=== PATIENT | male | born 1960 | race African-American/Black ===

== ENCOUNTER 2018-06-02 09:28 | Emergency (ER) | payer OTHER ==
--- NOTE | 2018-06-02 09:53 | ED ---
Complex/Multi-Sys Presentation - HPI Summary HPI Summary: Pt is a 58 y/o male brought in by EMS who presents to the ED c/o hypothermia. He was here last week and was transferred to [facility] because he did not have a fistula yet for dialysis and required it. Pt was discharged from [facility] last week, and was started on 50 mcg levothyroxine for hypothyroidism. Pt was at [facility] this morning for a routine checkup and was given 8 mg Zofran for N/V, which resolved his nausea. At the clinic he was found to be hypothermic with a temperature of 94.3 degrees F and was sent here to rule out sepsis. The clinic notes that his multiple diabetic foot wounds could be a source of infection. Pt also c/o fatigue, chills, and generalized weakness. He denies any CP, SOB, abdominal pain, foot pain, or fever. He is scheduled to have his dialysis every Thursday, , and Thursday. Pt denies missing any dialysis sessions. He is a former alcohol user. PMHx DM, HTN, HLD, ESRD, Hep C, latent TB. He denies any hx of [place] or CHF. - History Of Current Complaint Time Seen by Provider: 06/02/18 09:37 Hx Obtained From: Patient, EMS Onset/Duration: Gradual Onset, Still Present Timing: Constant Location: Negative Aggravating Factor(s): Nothing Alleviating Factor(s): Nothing Associated Signs And Symptoms: Positive: Weakness, Nausea, Vomiting. Negative: SOB, Chest Pain, Abdominal Pain, Fever Related History: Recent Hospitalization - [facility] for renal disease - Allergies/Home Medications Allergies/Adverse Reactions: Allergies Allergy/AdvReac Type Severity Reaction Status Date / Time No Known Allergies Allergy Verified 06/02/18 09:43 Home Medications: Home Medications Atorvastatin* [Lipitor*] 40 mg PO BEDTIME 06/02/18 [History Confirmed 06/02/18] Calcium Acetate CAP* [Phoslo CAP*] 1,334 mg PO TID WITH MEALS 06/02/18 [History Confirmed 06/02/18] Carvedilol TAB* [Coreg TAB*] 3.125 mg PO BID 06/02/18 [History Confirmed ] Cholecalciferol CAP/TAB(NF) [Vitamin D3 CAP/TAB (NF)] 1,000 unit PO DAILY [History Confirmed 06/02/18] Darbepoetin Kt* [Aranesp Albumin Free*] 60 mcg INJ WEEKLY 06/02/18 [History Confirmed 06/02/18] Levothyroxine TAB* [Synthroid TAB*] 50 mcg PO DAILY 06/02/18 [History Confirmed 06/02/18] Nicotine Polacrilex [Nicorette] 4 mg PO Q2HR PRN 06/02/18 [History Confirmed 10/13] Ondansetron TAB* [Zofran 4 MG Tab*] 4 - 8 mg PO Q8HR PRN 06/02/18 [History Confirmed 06/02/18] Polyethylene Glycol 3350* [Miralax*] 17 gm PO BID PRN 06/02/18 [History Confirmed 06/02/18] amLODIPine TAB* [Norvasc 5 mg TAB*] 10 mg PO DAILY 06/02/18 [History Confirmed 06/02/18] glipiZIDE TAB.XL* [Glucotrol XL*] 10 mg PO DAILY 06/02/18 [History Confirmed 10/13] hydrALAZINE TAB* [Apresoline TAB*] 75 mg PO Q8HR 06/02/18 [History Confirmed 10/13] traZODone TAB* [Desyrel TAB*] 50 mg PO BEDTIME 06/02/18 [History Confirmed 06/02] PMH/Surg Hx/FS Hx/Imm Hx Endocrine/Hematology History: Reports: Hx Diabetes, Hx Thyroid Disease - hypo Cardiovascular History: Reports: Hx Hypercholesterolemia, Hx Hypertension Denies: Hx Congestive Heart Failure, Hx Myocardial Infarction History: Reports: Hx Dialysis, Hx Renal Disease Infectious Disease History: No Infectious Disease History: Reports: Hx Hepatitis - C, Hx Tuberculosis - latent Denies: Traveled Outside the [place] in Last 30 Days - Family History Known Family History: Positive: Diabetes Negative: Cardiac Disease - Social History Alcohol Use: None Alcohol Amount: Former alcohol use Hx Substance Use: No Substance Use Type: Reports: None Hx Tobacco Use: No Smoking Status (MU): Never Smoked Tobacco Review of Systems Positive: Chills - cold, Fatigue, Other - generalized weakness. Negative: Fever Negative: Chest Pain Negative: Shortness Of Breath Positive: Vomiting, Nausea. Negative: Abdominal Pain Negative: Myalgia - foot Positive: Other - wounds on bilateral feet All Other Systems Reviewed And Are Negative: Yes Physical Exam - Summary Physical Exam Summary: GENERAL: Patient is a well-developed and nourished M who is lying comfortable in the stretcher. Patient is not in any acute respiratory distress. HEAD AND FACE: Normocephalic EYES: PERRLA, EOMI x 2. EARS: Hearing grossly intact. MOUTH: Oropharynx within normal limits. NECK: Supple, trachea is midline, no adenopathy, no JVD, no carotid bruit. CHEST: Symmetric, no tenderness at palpation LUNGS: Clear to auscultation bilaterally. No wheezing or crackles. CVS: Regular rate and rhythm, S1 and S2 present, no murmurs or gallops appreciated. ABDOMEN: Soft, non-tender. Bowel sounds are normal. No abdominal abnormal pulsations. EXTREMITIES: Full ROM in all major joints, no edema, no cyanosis or clubbing. NEURO: Alert and oriented x 3. No acute neurological deficits. Speech is normal and follows commands. SKIN: Dry and warm. Multiple chronic diabetic wounds on plantar aspects of bilateral feet. Triage Information Reviewed: Yes Vital Signs On Initial Exam: Initial Vitals Temp Pulse Resp BP Pulse Ox 97.1 F 71 13 165/90 100 06/02/18 09:40 06/02/18 09:40 06/02/18 09:40 06/02/18 09:40 06/02/18 09:40 Vital Signs Reviewed: Yes Diagnostics - Vital Signs Vital Signs Temp Pulse Resp BP Pulse Ox 06/02/18 09:48 100 06/02/18 09:40 97.1 F 71 13 165/90 100 - Laboratory Result Diagrams: 06/02/18 09:52 06/02/18 09:52 Lab Statement: Any lab studies that have been ordered have been reviewed, and results considered in the medical decision making process. - Radiology CXR Radiology Interpretation Completed By: Radiologist Summary of Radiographic Findings: NO ACTIVE CARDIOPULMONARY DISEASE IS NOTED. ED physician reviewed radiology report. Re-Evaluation - Re-Evaluation First Eval Re-Evaluation Time: 11:02 Change: Unchanged Comment: Rectal temperature is 94.7 degrees F. Second Eval Re-Evaluation Time: 11:56 Change: Unchanged Comment: Pt is sleeping. Will order for a jacob hugger. Pt's family states his body temperature is always low. Complex Multi-Symp Course/Dx Course Of Treatment: Pt is a 58 y/o male brought in by EMS who presents to the ED c/o hypothermia. As per family, pts body temperature is always low. A CXR was negative. Workup is otherwise unremarkable. Discussed the case with Dr. Malone who saw the pt and cleared for discharge. Pt will be discharged with final dx of chronic anemia and low body temperature. I discussed results with patient and he reports feeling better. He is hemodynamically stable and safe for discharge. Strict return precautions given and he will otherwise follow up with his PCP. - Diagnoses Provider Diagnoses: Chronic anemia, Body temperature low - Physician Notifications Discussed Care Of Patient With: Rakan Malone Time Discussed With Above Provider: 12:00 Instructed by Provider To: MD Will See In ED Discharge - Sign-Out/Discharge Documenting (check all that apply): Patient Departure - Discharge Patient Received Moderate/Deep Sedation with Procedure: No - Discharge Plan Condition: Stable Disposition: HOME Patient Education Materials: Acute Hypothermia (ED) Referrals: Charles Lemus MD [Primary Care Provider] - (1-3 days) Additional Instructions: Follow up with your primary care physician in 1-3 days. RETURN TO THE EMERGENCY DEPARTMENT FOR CHANGING OR WORSENING SYMPTOMS. - Billing Disposition and Condition Condition: STABLE Disposition: Home - Attestation Statements Document Initiated by Scribe: Yes Documenting Scribe: Ashleigh Reed Provider For Whom Lucy is Documenting (Include Credential): Brody Cabello MD Scribe Attestation: Ashleigh Cochran, scribed for Brody Cabello MD on 06/02/18 at 1840. Scribe Documentation Reviewed: Yes Provider Attestation: The documentation as recorded by the Ashleigh red accurately reflects the service I personally performed and the decisions made by me, Brody Cabello MD Status of Scribe Document: Viewed
[2018-06-02 10:01] LABS: ABS Basophils 0.1 10^3/ul (0-0.2); ABS Eosinophils 0.1 10^3/ul (0-0.6); ABS Lymphocytes 1.9 10^3/ul (1.0-4.8); ABS Monocytes 0.8 10^3/ul (0-0.8); ABS Neutrophils 2.9 10^3/ul (1.5-7.7); ABS Nucleated RBC 0 10^3/ul; Eosinophil % 2.5 %; Hematocrit 27 % (42-52); Hemoglobin 8.8 g/dl (14.0-18.0); Lymphocyte % 32.3 %; Mean Corpuscular HGB Conc 33 g/dl (31-36); Mean Corpuscular Hemoglobin 30 pg (27-31); Mean Corpuscular Volume 90 fL (80-94); Mean Platelet Volume 7.6 fL (7.4-10.4); Nucleated Red Blood Cells % 0.2; Platelet Count 222 10^3/ul (150-450); Red Blood Count 2.98 10^6/ul (4.00-5.40); Red Cell Distribution Width 16 % (10.5-15)
[2018-06-02 10:10] LABS: Activated Partial Thrombo Time 45.1 seconds (26.0-36.3); INR 0.98 (0.77-1.02)
--- OUTSIDE RECORDS SUMMARY | 2018-06-02 10:17 | XMS REPORT | Continuity of Care Document ---
:1960 External Reference #:[id number] Author Name Rae Bartlett Care Team Providers Name Role Phone Charles Lemus MD Care Team Information Grinder Outside Diameter Unavailable Charles Lemus MD Primary Care Physician Unavailable Payers Type Date Identification Numbers Payment Provider Subscriber Effective: Policy Number: [id number] [employer] Salvatore Wahl 2018 PayID: [id number] [address] [place] [address] Policy Number: [id number] [facility] Salvatore Wahl Group Number: [id number] [address] PayID: [id number] [place] [address] Advance Directives Description No Information Available Problems Date Description Provider Status Onset: 06/22/2017 Essential hypertension Enrique Liu MD Active Onset: 06/22/2017 Type 2 diabetes mellitus with mild Enrique Liu MD Active nonproliferative diabetic retinopathy without macular edema, bilateral Onset: 09/02/2017 Chronic hepatitis C Philippe Mcmahon MD Active Onset: 09/18/2017 Anemia Gamaliel Golden DO Active Onset: 09/18/2017 Chronic kidney disease stage 2 Gamaliel Golden DO Active Onset: 09/23/2017 [place]: positive Romana Romero M.D. Active Onset: 09/23/2017 Type II diabetes mellitus uncontrolled Romana Romero M.D. Active Onset: 03/02/2018 Diarrhea Enrique Diane MD Active Onset: 01/19/2018 Chronic kidney disease stage 4 Gamaliel Golden DO Active Onset: 10/26/2017 Tobacco user Romana Romero M.D. Active Family History Date Family Member(s) Problem(s) Comments General Non Contributory Father due to Unknown Causes () Mother due to Unknown Causes () First Son Alive Second Son Alive First Brother Alive First Sister Alive Second Sister Alive Social History Type Date Description Comments Sex Unknown Marital Status Significant Other Lives With Family Home Environment Lives With SPOUSE Diet Healthy, Well Balanced Occupation Unemployed ADL's/IADL's Independent with all ADL's Tobacco Use Start: Unknown Heavy tobacco smoker (more than 10 cigarettes/day) Smokeless Tobacco Never Used Smokeless Tobacco ETOH Use Denies alcohol use Tobacco Use Start: Unknown Patient is a current smokes 1 ppd x 30 smoker, smokes every day years Recreational Drug Use Marijuana Tobacco Use Start: Unknown Light tobacco smoker (10 or fewer cigarettes/day) Smoking Status Reviewed: 04/13/18 Light tobacco smoker (10 or fewer cigarettes/day) Allergies, Adverse Reactions, Alerts Description No Known Drug Allergies Medications Medication Date Status Form Strength Qnty SIG Indications Ordering Provider Boost Glucose 03/02 Active Liquid 90uni 1 bottle by R19.7 Roxi ts mouth three , Enrique, times a day before meals Mavyret 01/08 Active Tablets 100-40mg 168ta 3 tab by B18.2 bs mouth every MD Lisandro day Basaglar Kwikpen Active Solution 100Unit/M Inject 20 Pen-Injec L Units AT t Bedtime And Increase Insulin Every 3 Days By 2 Unit Amlodipine Active Tablets 10mg 90tab 1 by mouth OkSarah kim Besylate s every day ia SEED CORE OPERATOR Glipizide Active Tablets 10mg 90tab 1 tabs by Sarah Springer s mouth once a ia SEED CORE OPERATOR day Metoprolol Active Tablets 50mg 1 by mouth OkwSarah carrera Tartrate twice a day ia SEED CORE OPERATOR Losartan Active Tablets 100-25mg 1 po daily Lucy Lemus/Shanta Charles alvaradoorothiMD kelly Unifinritesh Pentips Active Misc 31G X 6 Karn, mm APPLE Mckeon Hydralazine HCL Active Tablets 50mg Take One Unknown Tablet By Mouth Every 8 Hours Vitamin D3 Active Tablets 1000Unit Take One Unknown Tablet By Mouth Every Day Polyethylene Active Powder 3350NF Mix 1 Capful Unknown Glycol 3350 /0000 In Liquid And Take Twice A Day as Needed For Constipation Isoniazid 01/20 Hx Tablets 300mg 30tab Take one tab R76.11 s PO daily x 30 Romana, - days M.D. 03/15 Pyridoxine HCL 01/20 Hx Tablets 50mg 30tab Take one tab R76.11 s PO daily x 30 Romana, - days M.D. 03/15 Mavyret 01/08 Hx Tablets 100-40mg 168ta 3 tab by B18.2 bs mouth every MD Lisandro - day 03/03 Zepatier 12/11 Hx Tablets 50-100mg 30tab 1 tab by Philippe s mouth every MD Lisandro - day 01/08 Metoclopramide Hx Tablets 10mg [place], HCL /0000 MD Charles Travel Sickness Hx Chewtabs 25mg as needed Gisel, /0000 Timbo Kerns-C 12/18 Metformin HCL Hx Tablets 500mg Karn, /0000 APPLE Mckeon Atorvastatin Hx Tablets 80mg Karn, Calcium /0000 APPLE Mckeon Omeprazole Hx Capsules 40mg Karn, /0000 APPLE Weaver Vitamin D3 Hx Capsules 5000Unit 1 a day Unknown Maximum Strength /0000 - 09/23 Immunizations Description No Information Available Vital Signs Date Vital Result Comment 03/02/2018 4:48pm BP Systolic Sitting Left Arm 155 mmHg BP Diastolic Sitting Left Arm 91 mmHg Heart Rate 57 /min Respiratory Rate 16 /min Height 70 inches 5'10" Weight 159.00 lb BMI (Body Mass Index) 22.8 kg/m2 BSA (Body Surface Area) 1.89 m2 [place] body weight in kilograms 75 kg O2 % BldC Oximetry 99 % 01/20/2018 2:43pm BP Systolic Sitting Left Arm 129 mmHg BP Diastolic Sitting Left Arm 75 mmHg Body Temperature 95.3 F Heart Rate 56 /min Weight 164.00 lb 01/19/2018 9:59am BP Systolic 137 mmHg BP Diastolic 74 mmHg Body Temperature 96.2 F Heart Rate 52 /min Weight 165.25 lb O2 % BldC Oximetry 98 % Pain Level 0 01/08/2018 8:38am BP Systolic Sitting Left Arm 130 mmHg BP Diastolic Sitting Left Arm 80 mmHg Heart Rate 52 /min Respiratory Rate 16 /min Height 70 inches 5'10" Weight 156.00 lb BMI (Body Mass Index) 22.4 kg/m2 BSA (Body Surface Area) 1.88 m2 [place] body weight in kilograms 75 kg 12/18/2017 11:49am BP Systolic Sitting Left Arm 160 mmHg lot of back discomfort today BP Diastolic Sitting Left Arm 100 mmHg lot of back discomfort today Heart Rate 60 /min Respiratory Rate 16 /min Height 70 inches 5'10" Weight 165.00 lb BMI (Body Mass Index) 23.7 kg/m2 BSA (Body Surface Area) 1.92 m2 [place] body weight in kilograms 75 kg 11/13/2017 11:20am BP Systolic Sitting Left Arm 128 mmHg BP Diastolic Sitting Left Arm 80 mmHg Heart Rate 60 /min Height 70 inches 5'10" Weight 160.00 lb BMI (Body Mass Index) 23.0 kg/m2 BSA (Body Surface Area) 1.90 m2 [place] body weight in kilograms 75 kg O2 % BldC Oximetry 97 % 10/26/2017 1:18pm BP Systolic Sitting Left Arm 163 mmHg BP Diastolic Sitting Left Arm 79 mmHg Body Temperature 94.5 F Heart Rate 59 /min Height 70 inches 5'10" Weight 155.00 lb BMI (Body Mass Index) 22.2 kg/m2 BSA (Body Surface Area) 1.87 m2 [place] body weight in kilograms 75 kg 10/07/2017 4:02pm BP Systolic Sitting Left Arm 120 mmHg BP Diastolic Sitting Left Arm 80 mmHg Heart Rate 60 /min Respiratory Rate 16 /min Height 70 inches 5'10" Weight 154.00 lb BMI (Body Mass Index) 22.1 kg/m2 BSA (Body Surface Area) 1.87 m2 [place] body weight in kilograms 75 kg 09/23/2017 1:29pm BP Systolic Sitting Left Arm 95 mmHg BP Diastolic Sitting Left Arm 62 mmHg Body Temperature 96.5 F Heart Rate 56 /min Height 70 inches 5'10" Weight 151.00 lb BMI (Body Mass Index) 21.7 kg/m2 BSA (Body Surface Area) 1.85 m2 [place] body weight in kilograms 75 kg 09/18/2017 10:31am BP Systolic 113 mmHg BP Diastolic 69 mmHg Body Temperature 96.8 F Heart Rate 55 /min Respiratory Rate 16 /min Weight 152.00 lb O2 % BldC Oximetry 100 % 09/04/2017 2:03pm BP Systolic 139 mmHg BP Diastolic 77 mmHg Body Temperature 96.5 F Heart Rate 67 /min Height 70 inches 5'10" Weight 162.00 lb BMI (Body Mass Index) 23.2 kg/m2 BSA (Body Surface Area) 1.91 m2 [place] body weight in kilograms 75 kg O2 % BldC Oximetry 99 % 09/02/2017 4:20pm BP Systolic Sitting Right Arm 130 mmHg BP Diastolic Sitting Right Arm 80 mmHg Heart Rate 62 /min Respiratory Rate 18 /min Height 70 inches 5'10" Weight 167.00 lb BMI (Body Mass Index) 24.0 kg/m2 BSA (Body Surface Area) 1.93 m2 [place] body weight in kilograms 75 kg Results Test Date Facility Test Result H/L Range Note Sodium SerPl-sCnc N2N/CCD Import Sodium SerPl-sCnc 140 136-145 019 Serum or plasma N2N/CCD Import Serum or plasma 7.1 urea 019 urea nitrogen/creatinine nitrogen/creatinin mass rati e mass ratio Serum or plasma N2N/CCD Import Serum or plasma 45 High 7-18 urea nitrogen 019 urea nitrogen measurement measurement (mass/vo (mass/volume) Serum or plasma N2N/CCD Import Serum or plasma 4.8 3.5-5.1 potassium 019 potassium measurement measurement Serum or plasma N2N/CCD Import Serum or plasma 108 High 74-106 glucose measurement 019 glucose (mass/volume) measurement (mass/volume) Serum or plasma N2N/CCD Import Serum or plasma 6.3 *H 0.6-1.3 creatinine 019 creatinine measurement measurement (mass/volum (mass/volume) Serum or plasma N2N/CCD Import Serum or plasma 113 High 98-107 chloride 019 chloride measurement measurement Serum or plasma N2N/CCD Import Serum or plasma 7.9 Low 8.5-10.1 calcium measurement 019 calcium (mass/volume) measurement (mass/volume) Serum or plasma N2N/CCD Import Serum or plasma 8 8-16 anion gap 019 anion gap Hct VFr Bld Auto N2N/CCD Import Hct VFr Bld Auto 26.3 Low 38.0- 48.0 019 Capillary blood N2N/CCD Import Capillary blood 189 High 70-110 glucose measurement 019 glucose by glucometer measurement by glucometer (mass/volume) Automated blood N2N/CCD Import Automated blood 6.3 3.4-10.5 leukocyte count 019 leukocyte count (number/volume) (number/volume) Automated blood N2N/CCD Import Automated blood 157 155-360 platelet count 019 platelet count Automated blood N2N/CCD Import Automated blood 10.9 High 6.6- 10.6 platelet mean 019 platelet mean volume measurement volume measurement Automated N2N/CCD Import Automated 15.1 11.6-15.8 erythrocyte 019 erythrocyte distribution width distribution width ratio ratio Automated N2N/CCD Import Automated 29.7 27.0-33.0 erythrocyte mean 019 erythrocyte mean corpuscular corpuscular hemoglobin hemoglobin (mass per erythrocyte) GFR/Bsa pred.black N2N/CCD Import GFR/Bsa pred.black 12 >60 SerPl MDRD-ArVRat 019 SerPl MDRD-ArVRat Estimated N2N/CCD Import Estimated 10 >60 glomerular 019 glomerular filtration rate filtration rate (GFR) non-Afr (GFR) non- Co2 SerPl-sCnc N2N/CCD Import Co2 SerP-sCnc 19 Low 21-32 019 Automated N2N/CCD Import Automated 32.7 31.7-36.0 erythrocyte mean 019 erythrocyte mean corpuscular corpuscular hemoglobin hemoglobin concentration measurement (mass/volume) Automated N2N/CCD Import Automated 90.7 80.0-96.0 erythrocyte mean 019 erythrocyte mean corpuscular volume corpuscular volume (MCV (MCV) measurement Blood hemoglobin N2N/CCD Import Blood hemoglobin 8.6 Low 12.8- 17.0 measurement 019 measurement (mass/volume) (mass/volume) Blood erythrocytes N2N/CCD Import Blood erythrocytes 2.90 Low 4.20-5.80 automated count 019 automated count (number/volume) (number/volume) Automated blood N2N/CCD Import Automated blood 36.4 20.0-42.0 lymphocytes/100 019 lymphocytes/100 leukocytes leukocytes Automated blood N2N/CCD Import Automated blood 45.5 33.0-73.0 neutrophils/100 019 neutrophils/100 leukocytes leukocytes Automated N2N/CCD Import Automated 4.9 0.0-6.6 eosinophil % 019 eosinophil % Automated N2N/CCD Import Automated 47.0 36-51 erythrocyte 019 erythrocyte distribution width distribution width Automated monocyte N2N/CCD Import Automated monocyte 12.6 High 0.0-10.0 % 019 % Blood monocytes N2N/CCD Import Blood monocytes 0.64 0.0-0.8 automated count 019 automated count (number/volume) (number/volume) Serum globulin N2N/CCD Import Serum globulin 4.5 High 1.9-4.3 measurement by 019 measurement by calculation calculation (mass/vo (mass/volume) Serum or plasma N2N/CCD Import Serum or plasma 26 12-78 alanine 019 alanine aminotransferase aminotransferase measureme measurement (enzymatic activity/volume) Serum or plasma N2N/CCD Import Serum or plasma 2.2 Low 3.4-5.0 albumin measurement 019 albumin (mass/volume) measurement (mass/volume) Serum or plasma N2N/CCD Import Serum or plasma 0.5 albumin/globulin 019 albumin/globulin mass ratio mass ratio Serum or plasma N2N/CCD Import Serum or plasma 101 45-117 alkaline 019 alkaline phosphatase phosphatase measurement ( measurement (enzymatic activity/volume) Serum or plasma N2N/CCD Import Serum or plasma 28 15-37 aspartate 019 aspartate aminotransferase aminotransferase measure measurement (enzymatic activity/volume) Serum or plasma N2N/CCD Import Serum or plasma 2.4 1.8-2.4 magnesium 019 magnesium measurement measurement (mass/volume (mass/volume) Serum or plasma N2N/CCD Import Serum or plasma 1678.0 High <125 natriuretic peptide 019 natriuretic B prohormone N peptide B prohormone N-terminal measurement (mass/volume) Serum or plasma N2N/CCD Import Serum or plasma 6.7 6.4-8.2 protein measurement 019 protein (mass/volume) measurement (mass/volume) Serum or plasma N2N/CCD Import Serum or plasma 0.2 0.2-1.0 total bilirubin 019 total bilirubin measurement (mass/ measurement (mass/volume) Blood estimated N2N/CCD Import Blood estimated 151 average glucose 019 average glucose determination by e determination by estimation from glycated hemoglobin (mass/volume) HgbA1c % N2N/CCD Import HgbA1c % 6.9 High 4.2-6.3 019 Bacteria detection N2N/CCD Import Bacteria detection Very Few None Seen in urine sediment 019 in urine sediment by light micr by light microscopy Epithelial cells N2N/CCD Import Epithelial cells Very Few None Seen detection in urine 019 detection in urine sediment by li sediment by light microscopy Specific gravity of N2N/CCD Import Specific gravity 1.020 1.010- 1.03 Urine by Automated 019 of Urine by 0 test strip Automated test strip Urine appearance N2N/CCD Import Urine appearance Clear Clear determination 019 determination Urine color N2N/CCD Import Urine color Yellow Yellow determination 019 determination Urine glucose N2N/CCD Import Urine glucose Negative Negative measurement by 019 measurement by automated test automated test strip strip (mass/volume) Urine hemoglobin N2N/CCD Import Urine hemoglobin Trace Negative detection by 019 detection by automated test automated test strip strip Urine ketones N2N/CCD Import Urine ketones Negative Negative measurement by 019 measurement by automated test automated test strip strip (mass/volume) Automated blood N2N/CCD Import Automated blood 1.84 1.0-4.0 lymphocyte count 019 lymphocyte count (number/volume) (number/volume) Automated blood N2N/CCD Import Automated blood 0.25 0.0-0.5 eosinophil count 019 eosinophil count Automated blood N2N/CCD Import Automated blood 0.03 0.0-0.1 basophil count 019 basophil count (number/volume) (number/volume) Automated basophil N2N/CCD Import Automated basophil 0.6 0.0- 1.1 % 019 % Absolute neutrophil N2N/CCD Import Absolute 2.30 1.8-7.0 count 019 neutrophil count Urine leukocyte N2N/CCD Import Urine leukocyte Negative Negative esterase detection 019 esterase detection by automated te by automated test strip Urine nitrite N2N/CCD Import Urine nitrite Negative Negative detection by 019 detection by automated test automated test strip strip Urine pH N2N/CCD Import Urine pH 7.0 6.5-7.5 measurement by 019 measurement by automated test automated test strip strip Urine total N2N/CCD Import Urine total Negative Negative bilirubin detection 019 bilirubin by automated test detection by automated test strip Urine urobilinogen N2N/CCD Import Urine urobilinogen 0.2 0.2- 1.0 measurement 019 measurement (units/volume) by t (units/volume) by test strip * Miscellaneous N2N/CCD Import * Miscellaneous Test(s) studies (set) 019 studies (set) added Stool Panel [facility] Ova & Parasite <pending> [address] [place] [place] [address] [phone] C. Difficile Toxin B By PCR <pending> Laboratory test 03/15/2018 [facility] Calprotectin, Fecal <pending> finding [address] [place] [address] [phone] Sedimentation Rate 67 mm/hr High 0-20 2 Pancreatic Elastase (Pe-1) <pending> Lipase 234 U/L N 56-289 Total fecal fat 03/15/2018 N2N/CCD Import Total fecal fat Normal . measurement measurement Stool neutral fat 03/15/2018 N2N/CCD Import Stool neutral fat Normal . detection detection Stool Escherichia 03/15/2018 N2N/CCD Import Stool Escherichia Shiga Toxin 1 Not coli Shiga-like coli Shiga-like Detected toxin 1 detectio toxin 1 detection by immunoassay Stool Escherichia 03/15/2018 N2N/CCD Import Stool Escherichia See Note 3 coli Shiga toxin 2 coli Shiga toxin 2 detection by detection by immunoassay Stool 03/15/2018 N2N/CCD Import Stool Negative For Cryptosporidium Cryptosporidium Cryptosporidium parvum antigen parvum antigen Specific Antigen detection by detection by immunoassay CBC W/Automated 03/15/2018 [facility] White Blood Count 5.1 K/uL N 3.4- Diff [address] [place] [address] [phone] Red Blood Count 3.54 M/uL Low 4.20-5.80 Hemoglobin 10.9 gm/dL Low 12.8-17.0 Hematocrit 32.2 % Low 38.0-48.0 Mean Cell Volume 91.0 fl N 80.0-96.0 Mean Corpuscular HGB 30.8 pg N 27.0-33.0 Mean Corpuscular HGB Conc 33.9 g/dL N 31.7-36.0 Platelet Count 211 K/uL N 155-360 Red Cell Distri Width SD 45.2 fl N 36-51 Red Cell Distri Width %CV 14.4 % N 11.6-15.8 Mean Platelet Volume 10.6 fL N 6.6-10.6 Neut% 35.8 % N 33.0-73.0 Lymph % 48.9 % High 20.0-42.0 [place] % 9.4 % N 0.0-10.0 Eo% 5.1 % N 0.0-6.6 Bas% 0.8 % N 0.0-1.1 Neut# 1.82 K/uL N 1.8-7.0 Lymph # 2.49 K/uL N 1.0-4.0 [place] # 0.48 K/uL N 0.0-0.8 Eos # 0.26 K/uL N 0.0-0.5 Baso # 0.04 K/uL N 0.0-0.1 Comprehensive Metabolic 03/15/2018 [facility] Glucose 205 mg/dL High 74-[address] [place] [address] [phone] BUN 47 mg/dL High 7-18 Creatinine 4.3 mg/dL High 0.6-1.3 Glom Filtration Rate, Estimate 15 mL/min >60 If 18 mL/min >60 4 BUN/Creat 10.9 ratio Sodium 136 mmol/L N 136-145 Potassium 4.9 mmol/L N 3.5-5.1 Chloride 105 mmol/L N 98-107 Carbon Dioxide 23 mmol/L N 21-32 Anion Gap 8 mEq/L N 8-16 Calcium 8.6 mg/dL N 8.5-10.1 Total Protein 6.9 g/dL N 6.4-8.2 Albumin 2.5 g/dL Low 3.4-5.0 Globulin 4.4 g/dL High 1.9-4.3 Alb/Glob 0.6 ratio Bilirubin,Total 0.3 mg/dL N 0.2-1.0 Sgot/Ast 16 U/L N 15-37 SGPT/Alt 16 U/L N 12-78 Alkaline Phosphatase 106 U/L N 45-117 Erythrocyte 03/15/2018 N2N/CCD Import Erythrocyte 67 High 0-20 sedimentation rate sedimentation rate by 15 minute by 15 minute readin reading Serum or plasma 03/15/2018 N2N/CCD Import Serum or plasma 234 56-289 lipase measurement lipase measurement (enzymatic acti (enzymatic activity/volume) Ova & Parasite 03/15/2018 [facility] Cryptosporidium NEGATIVE FOR [address] Specific Ag CRY <[place] [address] NOTE> [phone] Giardia Specific Antigen NEGATIVE FOR [place] <SEE NOTE> 6 G lamblia Ag Stl 03/15/2018 N2N/CCD Import G lamblia Ag Negative For Ql If Stl Ql If Giardia Specific Antigen. Bacteria Stl Cult 03/15/2018 N2N/CCD Import Bacteria Stl Organism: No Cult Enteric Pathogens Isolated Laboratory test 03/15/2018 [facility] Calprotectin, < 16 ug/g 0-120 [address] [place] [address] [phone] Pancreatic Elastase (Pe-1) > 500.0 ug/g >200 8 Fecal Fat, Qualitative 03/15/2018 [facility] Fats, Neutral Normal . [address] [place] [address] [phone] Fats, Total Normal . 10 Laboratory test 03/15/2018 [facility] C. Difficile Negative for [address] Toxin B By PCR tox <SEE NOTE> [place] [address] [phone] Stool Culture 03/15/2018 [facility] Stool Culture NO ENTERIC [address] PATHO <[place] [address] NOTE> [phone] . ................ <SEE NOTE> 13 Note: INCLUDES TESTING <SEE NOTE> 14 . PLESIOMONAS, CAM <SEE NOTE> 15 . ................ <SEE NOTE> 16 . YERSINIA AND VIB <SEE NOTE> 17 . SHOULD BE REQUES <SEE NOTE> 18 Shiga Toxin 1 Antigen SHIGA TOXIN 1 NO <SEE NOTE> 19 Shiga Toxin 2 Antigen SHIGA TOXIN 2 NO <SEE NOTE> 20 HCV Rna By PCR 02/10/2018 [facility] Hepatitis C HCV Not Detected 21, 22 (Quant) [address] IU/[place] [address] [phone] Test Info (SEE NOTE) 23 CBC W/Automated 02/10/2018 [facility] White Blood 5.9 K/uL N 3.4-10.5 [address] [place] [address] [phone] Red Blood Count 3.36 M/uL Low 4.20-5.80 Hemoglobin 10.3 gm/dL Low 12.8-17.0 Hematocrit 30.2 % Low 38.0-48.0 Mean Cell Volume 89.9 fl N 80.0-96.0 Mean Corpuscular HGB 30.7 pg N 27.0-33.0 Mean Corpuscular HGB Conc 34.1 g/dL N 31.7-36.0 Platelet Count 245 K/uL N 155-360 Red Cell Distri Width SD 44.0 fl N 36-51 Red Cell Distri Width %CV 14.1 % N 11.6-15.8 Mean Platelet Volume 10.3 fL N 6.6-10.6 Neut% 39.0 % N 33.0-73.0 Lymph % 44.5 % High 20.0-42.0 [place] % 10.9 % High 0.0-10.0 Eo% 4.9 % N 0.0-6.6 Bas% 0.7 % N 0.0-1.1 Neut# 2.28 K/uL N 1.8-7.0 Lymph # 2.61 K/uL N 1.0-4.0 [place] # 0.64 K/uL N 0.0-0.8 Eos # 0.29 K/uL N 0.0-0.5 Baso # 0.04 K/uL N 0.0-0.1 Comprehensive Metabolic 02/10/2018 [facility] Glucose 151 mg/dL High 74-[address] [place] [address] [phone] BUN 37 mg/dL High 7-18 Creatinine 4.0 mg/dL High 0.6-1.3 Glom Filtration Rate, Estimate 16 mL/min >60 If 20 mL/min >60 25 BUN/Creat 9.2 ratio Sodium 140 mmol/L N 136-145 Potassium 4.2 mmol/L N 3.5-5.1 Chloride 110 mmol/L High 98-107 Carbon Dioxide 21 mmol/L N 21-32 Anion Gap 9 mEq/L N 8-16 Calcium 8.9 mg/dL N 8.5-10.1 Total Protein 6.8 g/dL N 6.4-8.2 Albumin 2.3 g/dL Low 3.4-5.0 Globulin 4.5 g/dL High 1.9-4.3 Alb/Glob 0.5 ratio Bilirubin,Total 0.1 mg/dL Low 0.2-1.0 Sgot/Ast 15 U/L N 15-37 SGPT/Alt 16 U/L N 12-78 Alkaline Phosphatase 96 U/L N 45-117 Serum or plasma 02/10/2018 N2N/CCD Import Serum or plasma HCV Not hepatitis C virus hepatitis C virus Detected Rna measurement Rna measurement by probe and target amplification method (units/volume) Unloinc 02/10/2018 N2N/CCD Import Unloin See Note 26 Comprehensive 02/04/2018 [facility] Glucose 196 mg/dL High 74-1 27 Metabolic Panel [address] [place] [address] [phone] BUN 40 mg/dL High 7-18 Creatinine 4.0 mg/dL High 0.6-1.3 Glom Filtration Rate, Estimate 16 mL/min >60 If 20 mL/min >60 28 BUN/Creat 10.0 ratio Sodium 139 mmol/L N 136-145 Potassium 4.1 mmol/L N 3.5-5.1 Chloride 110 mmol/L High 98-107 Carbon Dioxide 21 mmol/L N 21-32 Anion Gap 8 mEq/L N 8-16 Calcium 8.5 mg/dL N 8.5-10.1 Total Protein 6.7 g/dL N 6.4-8.2 Albumin 2.3 g/dL Low 3.4-5.0 Globulin 4.4 g/dL High 1.9-4.3 Alb/Glob 0.5 ratio Bilirubin,Total 0.3 mg/dL N 0.2-1.0 Sgot/Ast 16 U/L N 15-37 SGPT/Alt 13 U/L N 12-78 Alkaline Phosphatase 81 U/L N 45-117 CBC W/Automated Diff 02/04/2018 [facility] White Blood 6.3 K/uL N 3.4-10.[address] [place] [address] [phone] Red Blood Count 3.32 M/uL Low 4.20-5.80 Hemoglobin 10.3 gm/dL Low 12.8-17.0 Hematocrit 29.9 % Low 38.0-48.0 Mean Cell Volume 90.1 fl N 80.0-96.0 Mean Corpuscular HGB 31.0 pg N 27.0-33.0 Mean Corpuscular HGB Conc 34.4 g/dL N 31.7-36.0 Platelet Count 248 K/uL N 155-360 Red Cell Distri Width SD 44.1 fl N 36-51 Red Cell Distri Width %CV 14.0 % N 11.6-15.8 Mean Platelet Volume 9.7 fL N 6.6-10.6 Neut% 39.1 % N 33.0-73.0 Lymph % 42.5 % High 20.0-42.0 [place] % 13.2 % High 0.0-10.0 Eo% 4.4 % N 0.0-6.6 Bas% 0.8 % N 0.0-1.1 Neut# 2.46 K/uL N 1.8-7.0 Lymph # 2.68 K/uL N 1.0-4.0 [place] # 0.83 K/uL High 0.0-0.8 Eos # 0.28 K/uL N 0.0-0.5 Baso # 0.05 K/uL N 0.0-0.1 Iron-Tibc-%Sat 01/19/2018 [facility] Serum Iron 44 g/dL Low 65-175 [address] [place] [address] [phone] Total Iron Binding Capacity 230 g/dL Low 250-450 Transferrin %Saturation 19 % N 12-57 Serum or plasma 01/19/2018 N2N/CCD Import Serum or plasma 230 Low 250- 450 iron binding iron binding capacity capacity measurement measurement (mass/volume) Serum or plasma 01/19/2018 N2N/CCD Import Serum or plasma 44 Low 65-175 iron measurement iron measurement (mass/volume) (mass/volume) Serum or plasma 01/19/2018 N2N/CCD Import Serum or plasma 19 12-57 iron saturation iron saturation measurement (mass measurement (mass fraction) CBS W/Automated 01/14/2018 [facility] White Blood Count 5.5 K/uL N 3.4-10.5 29 Diff [address] [place] [address] [phone] Red Blood Count 3.66 M/uL Low 4.20-5.80 Hemoglobin 11.2 gm/dL Low 12.8-17.0 Hematocrit 32.8 % Low 38.0-48.0 Mean Cell Volume 89.6 fl N 80.0-96.0 Mean Corpuscular HGB 30.6 pg N 27.0-33.0 Mean Corpuscular HGB Conc 34.1 g/dL N 31.7-36.0 Platelet Count 284 K/uL N 155-360 Red Cell Distri Width SD 45.1 fl N 36-51 Red Cell Distri Width %CV 14.3 % N 11.6-15.8 Mean Platelet Volume 10.5 fL N 6.6-10.6 Neut% 43.2 % N 33.0-73.0 Lymph % 43.1 % High 20.0-42.0 [place] % 9.4 % N 0.0-10.0 Eo% 3.6 % N 0.0-6.6 Bas% 0.7 % N 0.0-1.1 Neut# 2.38 K/uL N 1.8-7.0 Lymph # 2.38 K/uL N 1.0-4.0 [place] # 0.52 K/uL N 0.0-0.8 Eos # 0.20 K/uL N 0.0-0.5 Baso # 0.04 K/uL N 0.0-0.1 Iron-Tibc-%Sat 01/14/2018 [facility] Serum Iron 91 g/dL N 65-175 [address] [place] [address] [phone] Total Iron Binding Capacity 251 g/dL N 250-450 Transferrin %Saturation 36 % N 12-57 Comprehensive Metabolic 01/14/2018 [facility] Glucose 137 mg/dL High 74-106 Panel [address] [place] [address] [phone] BUN 35 mg/dL High 7-18 Creatinine 4.4 mg/dL High 0.6-1.3 30 Glom Filtration Rate, Estimate 15 mL/min >60 If 18 mL/min >60 31 BUN/Creat 7.9 ratio Sodium 139 mmol/L N 136-145 Potassium 3.9 mmol/L N 3.5-5.1 Chloride 105 mmol/L N 98-107 Carbon Dioxide 24 mmol/L N 21-32 Anion Gap 10 mEq/L N 8-16 Calcium 8.8 mg/dL N 8.5-10.1 Total Protein 6.7 g/dL N 6.4-8.2 Albumin 2.5 g/dL Low 3.4-5.0 Globulin 4.2 g/dL N 1.9-4.3 Alb/Glob 0.6 ratio Bilirubin,Total 0.3 mg/dL N 0.2-1.0 Sgot/Ast 21 U/L N 15-37 SGPT/Alt 31 U/L N 12-78 Alkaline Phosphatase 75 U/L N 45-117 Comprehensive 01/01/2018 [facility] Glucose 122 mg/dL High 74-106 32 Metabolic Panel [address] [place] [address] [phone] BUN 42 mg/dL High 7-18 Creatinine 4.4 mg/dL High 0.6-1.3 Glom Filtration Rate, Estimate 15 mL/min >60 If 18 mL/min >60 33 BUN/Creat 9.5 ratio Sodium 138 mmol/L N 136-145 Potassium 4.2 mmol/L 3.5-5.1 Chloride 107 mmol/L N 98-107 Carbon Dioxide 24 mmol/L N 21-32 Anion Gap 7 mEq/L Low 8-16 Calcium 8.5 mg/dL N 8.5-10.1 Total Protein 6.4 g/dL N 6.4-8.2 Albumin 2.6 g/dL Low 3.4-5.0 Globulin 3.8 g/dL N 1.9-4.3 Alb/Glob 0.7 ratio Bilirubin,Total 0.2 mg/dL N 0.2-1.0 Sgot/Ast 19 U/L N 15-37 SGPT/Alt 24 U/L N 12-78 Alkaline Phosphatase 74 U/L N 45-117 Serum or plasma 01/01/2018 N2N/CCD Import Serum or plasma 5.884 . hepatitis C virus hepatitis C virus Rna Rna viral load b viral load by probe and target amplification method (log units/volume) HCV Rna By PCR 01/01/2018 [facility] Hepatitis C 378293 IU/mL . (Quant) [address] [place] [address] [phone] HCV log10 5.884 IU/mL . 34 Test Info (SEE NOTE) 35 HBV Real Time Dna 11/13/2017 [facility] HBV as Iu/mL HBV DNA not . 36 PCR,Quant [address] dete <SEE NOTE> [place] [address] IU/mL [phone] log10 HBV Iu/mL (SEE NOTE) 37 Test Information (SEE NOTE) 38 Laboratory test 11/13/2017 [facility] Hepatitis Be Negative Negative [address] [place] [address] [phone] Hepatitis Be Antigen Negative Negative Afb Smear And 10/26/2017 [facility] Afb Culture No acid fast 40, [address] tito <[place] [address] NOTE> [phone] HCV Ns5a Drug 10/22/2017 [facility] HCV Ns5a Drug (SEE NOTE) 42, 43 Resistance Assay [address] [place] [address] [phone] HCV Ns5a Resist Assay Interp (SEE NOTE) 44 HCV genotype (1a or 1b)? UNK Quantiferon 10/22/2017 [facility] QuantiFERON Positive Abnormal Negative [address] [place] [place] [address] [phone] QuantiFERON Criteria (SEE NOTE) 46 QuantiFERON TB Ag Value 1.15 IU/mL . QuantiFERON Nil Value 0.16 IU/mL . QuantiFERON Mitogen Value 7.89 IU/mL . QFT TB Ag minus Nil Value 0.99 IU/mL . QuantiFERON TB Gold Interpret (SEE NOTE) 47 Hep B Core 10/22/2017 [facility] Hep B Core Positive Abnormal Negative 48 AB Total [address] AB Total [place], [place] [id number] [phone] HCV genotype (1a or 1b)? UNK Comprehensive Metabolic 10/22/2017 [facility] Glucose 167 mg/dL High 74-[address] [place], [place] [id number] [phone] BUN 57 mg/dL High 7-18 Creatinine 3.4 mg/dL High 0.6-1.3 Glom Filtration Rate, Estimate 20 mL/min >60 If 24 mL/min >60 49 BUN/Creat 16.7 ratio Sodium 132 mmol/L Low 136-145 Potassium 3.2 mmol/L Low 3.5-5.1 Chloride 95 mmol/L Low 98-107 Carbon Dioxide 27 mmol/L N 21-32 Anion Gap 10 mEq/L N 8-16 Calcium 8.8 mg/dL N 8.5-10.1 Total Protein 7.5 g/dL N 6.4-8.2 Albumin 3.1 g/dL Low 3.4-5.0 Globulin 4.4 g/dL High 1.9-4.3 Alb/Glob 0.7 ratio Bilirubin,Total 0.3 mg/dL N 0.2-1.0 Sgot/Ast 23 U/L N 15-37 SGPT/Alt 32 U/L N 12-78 Alkaline Phosphatase 86 U/L N 45-117 Hep B Core AB 10/16/2017 [facility] Hep B Core AB Negative Negative 50, [address] Total [place], [place] [id number] [phone] HCV genotype (1a or 1b)? 1A HCV Ns5a Drug 10/16/2017 [facility] HCV Ns5a Drug (SEE NOTE) 52 Resistance Assay [address] [place] [address] [phone] HCV Ns5a Resist Assay Interp (SEE NOTE) 53 HCV genotype (1a or 1b)? 1A Comprehensive Metabolic 10/16/2017 [facility] Glucose 225 mg/dL High 74-[address] [place], [place] [phone] BUN 40 mg/dL High 7-18 Creatinine 2.6 mg/dL High 0.6-1.3 Glom Filtration Rate, Estimate 27 mL/min >60 If 33 mL/min >60 54 BUN/Creat 15.3 ratio Sodium 136 mmol/L N 136-145 Potassium 4.3 mmol/L N 3.5-5.1 Chloride 102 mmol/L N 98-107 Carbon Dioxide 25 mmol/L N 21-32 Anion Gap 9 mEq/L N 8-16 Calcium 8.8 mg/dL N 8.5-10.1 Total Protein 7.3 g/dL N 6.4-8.2 Albumin 2.9 g/dL Low 3.4-5.0 Globulin 4.4 g/dL High 1.9-4.3 Alb/Glob 0.7 ratio Bilirubin,Total 0.3 mg/dL N 0.2-1.0 Sgot/Ast 21 U/L N 15-37 SGPT/Alt 32 U/L N 12-78 Alkaline Phosphatase 79 U/L N 45-117 Afb Smear And 10/13/2017 [facility] Afb Culture Acid Fast 55, [address] Cultur <[place] [address] NOTE> [phone] Protein 09/23/2017 [facility] Protein,Total, 6.3 g/dL 6.0-8. Electro.,S [address] Serum 5 [place] [address] [phone] Albumin 3.0 g/dL 2.9-4.4 Zvxou-4-Fwmafoce 0.2 g/dL 0.0-0.4 Jvpsv-2-Wqgcbcqh 1.1 g/dL High 0.4-1.0 Beta Globulin 1.1 g/dL 0.7-1.3 Gamma Globulin 0.9 g/dL 0.4-1.8 M-Perez Not Observed g/dL Not Observed Globulin, Total 3.3 g/dL 2.2-3.9 A/G Ratio 0.9 0.7-1.7 Please Note: (SEE NOTE) 57 P E Interpretation, Serum (SEE NOTE) 58 CBS W/Automated Diff 09/23/2017 [facility] White Blood 6.2 K/uL N 3.4-10.[address] [place] [facility] [place] [address] [phone] Red Blood Count 3.64 M/uL Low 4.20-5.80 Hemoglobin 11.2 gm/dL Low 12.8-17.0 Hematocrit 32.3 % Low 38.0-48.0 Mean Cell Volume 88.7 fl N 80.0-96.0 Mean Corpuscular HGB 30.8 pg N 27.0-33.0 Mean Corpuscular HGB Conc 34.7 g/dL N 31.7-36.0 Platelet Count 286 K/uL N 155-360 Red Cell Distri Width SD 41.5 fl N 36-51 Red Cell Distri Width %CV 13.4 % N 11.6-15.8 Mean Platelet Volume 10.5 fL N 6.6-10.6 Neut% 33.8 % N 33.0-73.0 Lymph % 49.3 % High 20.0-42.0 [place] % 13.2 % High 0.0-10.0 Eo% 3.2 % N 0.0-6.6 Bas% 0.5 % N 0.0-1.1 Neut# 2.10 K/uL N 1.8-7.0 Lymph # 3.06 K/uL N 1.0-4.0 [place] # 0.82 K/uL High 0.0-0.8 Eos # 0.20 K/uL N 0.0-0.5 Baso # 0.03 K/uL N 0.0-0.1 Iron-Tibc-%Sat 09/23/2017 [facility] Serum Iron 135 g/dL N 65-175 [address] [place] [address] [phone] Total Iron Binding Capacity 294 g/dL N 250-450 Transferrin %Saturation 46 % N 12-57 Comprehensive Metabolic 09/23/2017 [facility] Glucose 359 mg/dL High 74-106 Panel [address] [place] [address] [phone] BUN 46 mg/dL High 7-18 Creatinine 3.8 mg/dL High 0.6-1.3 Glom Filtration Rate, Estimate 17 mL/min >60 If 21 mL/min >60 59 BUN/Creat 12.1 ratio Sodium 126 mmol/L Low 136-145 Potassium 3.8 mmol/L N 3.5-5.1 Chloride 91 mmol/L Low 98-107 Carbon Dioxide 25 mmol/L N 21-32 Anion Gap 10 mEq/L N 8-16 Calcium 8.9 mg/dL N 8.5-10.1 Total Protein 7.0 g/dL N 6.4-8.2 Albumin 2.9 g/dL Low 3.4-5.0 Globulin 4.1 g/dL N 1.9-4.3 Alb/Glob 0.7 ratio Bilirubin,Total 0.2 mg/dL N 0.2-1.0 Sgot/Ast 22 U/L N 15-37 SGPT/Alt 33 U/L N 12-78 Alkaline Phosphatase 87 U/L N 45-117 Reticulocyte 09/23/2017 [facility] Retic % 1.0 % N 0.8-2.1 Count,Automated [address] [place] [address] [phone] Quantiferon 09/23/2017 [facility] QuantiFERON Positive Abnormal Negative 60, Client Incubated [address] TB Gold 61 [place], [place] [id number] [phone] QuantiFERON Criteria (SEE NOTE) 62 QuantiFERON TB Ag Value 0.99 IU/mL . QuantiFERON Nil Value 0.10 IU/mL . QuantiFERON Mitogen Value 6.43 IU/mL . QFT TB Ag minus Nil Value 0.89 IU/mL . QuantiFERON TB Gold Interpret (SEE NOTE) 63 Vitamin B12 And 09/23/2017 [facility] Vitamin B12 564 pg/mL N 193-986 Folate [address] [place], [place] [id number] [phone] Folic Acid 12.7 ng/mL N 3.1-17.5 Immunoglobulins 09/23/2017 [facility] Immunoglobulin [phone] A/G/M, QN, Ser [address] G,Quant,Serum mg/[place] [address] [phone] Immunoglobulin A 289 mg/dL 90-386 Immunoglobulin M 126 mg/dL 20-172 64 Laboratory test 09/23/2017 [facility] Immunofixation,Serum (SEE NOTE) 65 finding [address] [place] [address] [phone] CBS W/Automated 09/04/2017 [facility] White Blood Count 7.8 K/uL N 3.4- [address] 10.5 [place] [address] [phone] Red Blood Count 3.61 M/uL Low 4.20-5.80 Hemoglobin 11.2 gm/dL Low 12.8-17.0 Hematocrit 32.2 % Low 38.0-48.0 Mean Cell Volume 89.2 fl N 80.0-96.0 Mean Corpuscular HGB 31.0 pg N 27.0-33.0 Mean Corpuscular HGB Conc 34.8 g/dL N 31.7-36.0 Platelet Count 233 K/uL N 155-360 Red Cell Distri Width SD 42.0 fl N 36-51 Red Cell Distri Width %CV 13.4 % N 11.6-15.8 Mean Platelet Volume 10.9 fL High 6.6-10.6 Neut% 46.6 % N 33.0-73.0 Lymph % 39.6 % N 20.0-42.0 [place] % 10.5 % High 0.0-10.0 Eo% 2.7 % N 0.0-6.6 Bas% 0.6 % N 0.0-1.1 Neut# 3.62 K/uL N 1.8-7.0 Lymph # 3.08 K/uL N 1.0-4.0 [place] # 0.82 K/uL High 0.0-0.8 Eos # 0.21 K/uL N 0.0-0.5 Baso # 0.05 K/uL N 0.0-0.1 Comprehensive Metabolic 09/04/2017 [facility] Glucose 313 mg/dL High 74-[address] [place] [address] [phone] BUN 27 mg/dL High 7-18 Creatinine 2.3 mg/dL High 0.6-1.3 Glom Filtration Rate, Estimate 31 mL/min >60 If 38 mL/min >60 67 BUN/Creat 11.7 ratio Sodium 133 mmol/L Low 136-145 Potassium 4.2 mmol/L N 3.5-5.1 Chloride 100 mmol/L N 98-107 Carbon Dioxide 27 mmol/L N 21-32 Anion Gap 6 mEq/L Low 8-16 Calcium 8.8 mg/dL N 8.5-10.1 Total Protein 7.0 g/dL N 6.4-8.2 Albumin 2.6 g/dL Low 3.4-5.0 Globulin 4.4 g/dL High 1.9-4.3 Alb/Glob 0.6 ratio Bilirubin,Total 0.2 mg/dL N 0.2-1.0 Sgot/Ast 21 U/L N 15-37 SGPT/Alt 27 U/L N 12-78 Alkaline Phosphatase 97 U/L N 45-117 Vitamin B12 And 09/04/2017 [facility] Vitamin B12 518 pg/mL N 193-986 Folate [address] [place] [address] [phone] Folic Acid 16.1 ng/mL N 3.1-17.5 Iron-Tibc-%Sat 09/04/2017 [facility] Serum Iron 70 g/dL N 65-175 [address] [place] [address] [phone] Total Iron Binding Capacity 275 g/dL N 250-450 Transferrin %Saturation 25 % N 12-57 Immunofixation,Serum 09/04/2017 [facility] Immunofixation (SEE 57 [address] [facility] Results NOTE) [place] [address] [phone] Immunoglobulin G,Quant,Serum 900 mg/dL 700-1600 Immunoglobulin A 268 mg/dL 90-386 Immunoglobulin M 119 mg/dL 20-172 69 Protein 09/04/2017 [facility] Protein,Total,Serum 6.3 g/dL 6.0-8.5 Electro.,S [address] [place] [address] [phone] Albumin 2.8 g/dL Low 2.9-4.4 Evafw-9-Biovwxfs 0.3 g/dL 0.0-0.4 Qgniz-7-Qmuqybfx 1.1 g/dL High 0.4-1.0 Beta Globulin 1.2 g/dL 0.7-1.3 Gamma Globulin 0.9 g/dL 0.4-1.8 M-Perez Not Observed g/dL Not Observed Globulin, Total 3.5 g/dL 2.2-3.9 A/G Ratio 0.8 0.7-1.7 Please Note: (SEE NOTE) 70 P E Interpretation, Serum (SEE NOTE) 71 Reticulocyte 09/04/2017 [facility] Retic % 1.3 % N 0.8-2.1 Count,Automated [address] [place] [address] [phone] HCV Rna PCR,Quant 09/02/2017 [facility] Hepatitis C 224191 . 72 Reflex Nuvia [address] [facility] Quantitation IU/[place] [address] [phone] HCV Rna Copies Log 10 5.818 [id number] . 73 Test Information: (SEE NOTE) 74 Hepatitis C Virus 09/02/2017 [facility] Hepatitis C Genotype 1a . Genotyping [address] [place] [address] [phone] Test Comment (SEE NOTE) 75 Laboratory test 09/02/2017 [facility] Hepatitis A Negative Negative finding [address] [facility] [place] [address] [phone] Hepatitis B Core Antibody-IgM Negative Negative 76 Hepatitis B Surface Antibody Non Reactive . 77 Hepatitis B Surface Antigen Negative Negative Iron-Tibc-%Sat 09/02/2017 [facility] Serum Iron 72 g/dL N 65-175 [address] [place] [address] [phone] Total Iron Binding Capacity 285 g/dL N 250-450 Transferrin %Saturation 25 % N 12-57 Laboratory test 09/02/2017 [facility] Ferritin 236 ng/mL N 26-388 finding [address] [place] [address] [phone] Laboratory test 09/02/2017 [facility] Imxzc-9-Tuvgjsgr 169 mg/dL 90-200 finding [address] sin,[place] [address] [phone] Ceruloplasmin 37.5 mg/dL High 16.0-31.0 Protein 09/02/2017 [facility] Protein,Total,Serum 6.3 g/dL 6.0-8.5 Electro.,S [address] [place] [address] [phone] Albumin 2.9 g/dL 2.9-4.4 Gruue-6-Qpxniujv 0.3 g/dL 0.0-0.4 Xnhah-0-Kqfdyaja 1.2 g/dL High 0.4-1.0 Beta Globulin 1.0 g/dL 0.7-1.3 Gamma Globulin 0.9 g/dL 0.4-1.8 M-Perez Not Observed g/dL Not Observed Globulin, Total 3.4 g/dL 2.2-3.9 A/G Ratio 0.9 0.7-1.7 Please Note: (SEE NOTE) 78 P E Interpretation, Serum (SEE NOTE) 79 Laboratory 09/02/2017 [facility] Anti-Nuclear Negative Negative test finding [address] Antibodies Direct AU/[place] [address] [phone] Celiac Disease 09/02/2017 [facility] Immunoglobulin A 279 mg/dL 90-386 Comp AB [address] [place] [address] [phone] Antigliadin Abs, IgG 2 units 0-19 80 Antigliadin Abs, IgA 7 units 0-19 81 Endomysial IgA Antibody Negative Negative t-Transglutaminase IgA <2 U/mL 0-3 82 t-Transglutaminase IgG <2 U/mL 0-5 83 Laboratory test 09/02/2017 [facility] Mitochondrial 1.2 units 0.0-20.0 [address] (M2) [place] [address] [phone] Actin (Smooth Muscle) Antibody 17 units 0-19 85 Hepatitis A AB, Total POSITIVE Abnormal Negative 86 Hep B Core AB Total Negative Negative HCV Fibrosure 09/02/2017 [facility] Fibrosis Score 0.31 High 0.00-0.[address] [place] [address] [phone] Fibrosis Stage (SEE NOTE) 87 Necroinflammat Activity Score 0.10 0.00-0.17 Necroinflammat Activity Grade A0-No activity . Analysis . Cggat-8-Iydxmvszfkpod 486 mg/dL High 110-276 Haptoglobin 183 mg/dL 34-200 Apolipoprotein A-1 177 mg/dL 101-178 Bilirubin,Total 0.2 mg/dL 0.0-1.2 GGT 17 IU/L 0-65 Alt (SGPT) 23 IU/L 0-55 . . Interpretations: (SEE NOTE) 88 Fibrosis Scoring (SEE NOTE) 89 Necroinflamm Activity Scoring: (SEE NOTE) 90 Limitations: (SEE NOTE) 91 Comment: (SEE NOTE) 92 CBS W/Automated 11/21/2016 [facility] White Blood 5.9 K/uL N 3.4-10.5 [address] [place] [address] [phone] Red Blood Count 4.15 M/uL Low 4.20-5.80 Hemoglobin 13.1 gm/dL N 12.8-17.0 Hematocrit 36.4 % Low 38.0-48.0 Mean Cell Volume 87.7 fl N 80.0-96.0 Mean Corpuscular HGB 31.6 pg N 27.0-33.0 Mean Corpuscular HGB Conc 36.0 g/dL N 31.7-36.0 Platelet Count 253 K/uL N 150-400 Red Cell Distri Width SD 42.2 fl N 36-51 Red Cell Distri Width %CV 13.5 % N 11.6-15.8 Mean Platelet Volume 10.5 fL N 6.6-10.6 Neut% 49.0 % N 33.0-73.0 Lymph % 38.4 % N 20.0-42.0 [place] % 10.7 % High 0.0-10.0 Eo% 1.4 % N 0.0-6.6 Bas% 0.5 % N 0.0-1.1 Neut# 2.88 K/uL N 1.8-7.0 Lymph # 2.26 K/uL N 1.0-4.0 [place] # 0.63 K/uL N 0.0-0.8 Eos # 0.08 K/uL N 0.0-0.5 Baso # 0.03 K/uL N 0.0-0.1 Basic Metabolic Panel 11/21/2016 [facility] Glucose 73 mg/dL Low 74-[address] [place] [address] [phone] BUN 5 mg/dL Low 7-18 Creatinine 0.7 mg/dL N 0.6-1.3 Glom Filtration Rate, Estimate >60 mL/min >60 If >60 mL/min >60 94 BUN/Creat 7.1 ratio Sodium 141 mmol/L N 136-145 Potassium 3.7 mmol/L N 3.5-5.1 Chloride 106 mmol/L N 98-107 Carbon Dioxide 26 mmol/L N 21-32 Anion Gap 9 mEq/L N 8-16 Calcium 8.1 mg/dL Low 8.5-10.1 CBS W/Automated 11/20/2016 [facility] White Blood 6.7 K/uL N 3.4-10.5 [address] [place] [address] [phone] Red Blood Count 4.39 M/uL N 4.20-5.80 Hemoglobin 13.8 gm/dL N 12.8-17.0 Hematocrit 38.1 % N 38.0-48.0 Mean Cell Volume 86.8 fl N 80.0-96.0 Mean Corpuscular HGB 31.4 pg N 27.0-33.0 Mean Corpuscular HGB Conc 36.2 g/dL High 31.7-36.0 Platelet Count 254 K/uL N 150-400 Red Cell Distri Width SD 39.9 fl N 36-51 Red Cell Distri Width %CV 13.0 % N 11.6-15.8 Mean Platelet Volume 10.9 fL High 6.6-10.6 Neut% 39.0 % N 33.0-73.0 Lymph % 49.0 % High 20.0-42.0 [place] % 10.4 % High 0.0-10.0 Eo% 1.2 % N 0.0-6.6 Bas% 0.4 % N 0.0-1.1 Neut# 2.62 K/uL N 1.8-7.0 Lymph # 3.29 K/uL N 1.0-4.0 [place] # 0.70 K/uL N 0.0-0.8 Eos # 0.08 K/uL N 0.0-0.5 Baso # 0.03 K/uL N 0.0-0.1 Basic Metabolic Panel 11/20/2016 [facility] Glucose 91 mg/dL N 74-[address] [place] [address] [phone] BUN 8 mg/dL N 7-18 Creatinine 0.7 mg/dL N 0.6-1.3 Glom Filtration Rate, Estimate >60 mL/min >60 If >60 mL/min >60 96 BUN/Creat 11.4 ratio Sodium 136 mmol/L N 136-145 Potassium 3.6 mmol/L N 3.5-5.1 Chloride 104 mmol/L N 98-107 Carbon Dioxide 25 mmol/L N 21-32 Anion Gap 7 mEq/L Low 8-16 Calcium 8.4 mg/dL Low 8.5-10.1 Basic Metabolic Panel 11/19/2016 [facility] Glucose 134 mg/dL High 74-106 [address] [place], [place] [address] [phone] BUN 13 mg/dL N 7-18 Creatinine 0.8 mg/dL N 0.6-1.3 Glom Filtration Rate, Estimate >60 mL/min >60 If >60 mL/min >60 97 BUN/Creat 16.2 ratio Sodium 137 mmol/L N 136-145 Potassium 4.1 mmol/L 3.5-5.1 Chloride 101 mmol/L N 98-107 Carbon Dioxide 30 mmol/L N 21-32 Anion Gap 6 mEq/L Low 8-16 Calcium 8.6 mg/dL N 8.5-10.1 Aot Request 11/19/2016 [facility] Aot Request Test(s) added 98, 99 [address] [place] [address] [phone] Tests to be added: magnesium CBS W/Automated Diff 11/19/2016 [facility] White Blood 8.0 K/uL N 3.4-10.5 [address] [facility] [place] [address] [phone] Red Blood Count 4.16 M/uL Low 4.20-5.80 Hemoglobin 13.0 gm/dL N 12.8-17.0 Hematocrit 36.0 % Low 38.0-48.0 Mean Cell Volume 86.5 fl N 80.0-96.0 Mean Corpuscular HGB 31.3 pg N 27.0-33.0 Mean Corpuscular HGB Conc 36.1 g/dL High 31.7-36.0 Platelet Count 250 K/uL N 150-400 Red Cell Distri Width SD 40.4 fl N 36-51 Red Cell Distri Width %CV 13.1 % N 11.6-15.8 Mean Platelet Volume 11.0 fL High 6.6-10.6 Neut% 37.2 % N 33.0-73.0 Lymph % 49.3 % High 20.0-42.0 [place] % 11.6 % High 0.0-10.0 Eo% 1.4 % N 0.0-6.6 Bas% 0.5 % N 0.0-1.1 Neut# 3.00 K/uL N 1.8-7.0 Lymph # 3.96 K/uL N 1.0-4.0 [place] # 0.93 K/uL High 0.0-0.8 Eos # 0.11 K/uL N 0.0-0.5 Baso # 0.04 K/uL N 0.0-0.1 Basic Metabolic Panel 11/19/2016 [facility] Glucose 69 mg/dL Low 74-106 [address] [place] [address] [phone] BUN 11 mg/dL N 7-18 Creatinine 0.8 mg/dL N 0.6-1.3 Glom Filtration Rate, Estimate >60 mL/min >60 If >60 mL/min >60 100 BUN/Creat 13.7 ratio Sodium 139 mmol/L N 136-145 Potassium 2.9 mmol/L Low 3.5-5.1 Chloride 101 mmol/L N 98-107 Carbon Dioxide 30 mmol/L N 21-32 Anion Gap 8 mEq/L N 8-16 Calcium 8.3 mg/dL Low 8.5-10.1 Laboratory test finding 11/19/2016 [facility] Lipase 124 U/L N 73-393 [address] [place] [address] [phone] Magnesium 1.4 mg/dL Low 1.8-2.4 Laboratory test 11/19/2016 [facility] Hepatitis C > 11.0 High 0.0-0.9 101, finding [address] Antibody s/corat [address] [place] [address] [phone] Urine 11/18/2016 N2N/CCD Import Urine Positive High cannabinoids cannabinoids detection by detection by screening method screening method Urine drug 11/18/2016 N2N/CCD Import Urine drug * screen comment screen comment interpretation interpretation Urine methadone 11/18/2016 N2N/CCD Import Urine methadone Negative detection by detection by screening method screening method Mucus detection 11/18/2016 N2N/CCD Import Mucus detection Very Few None in urine in urine Seen sediment by sediment by light microsc light microscopy Laboratory test 11/18/2016 [facility] Ethyl Alcohol < 3.0 [address] mg/[place] [address] [phone] Lactic Acid 11/18/2016 [facility] Lactic Acid 1.1 N 0.4-1.[address] mmol/[place] [address] [phone] Lab Reflex >2.0 for Sepsis? Y Serum or plasma 11/18/2016 N2N/CCD Import Serum or plasma 1.1 0.4-1.9 lactate measurement lactate measurement (moles/volume) (moles/volume) Drugs Of Abuse-Urine 11/18/2016 [facility] Amphetamines Negative Screen [address] (Urine) [place] [address] [phone] Barbiturates (Urine) Negative Benzodiazepines (Urine) Negative Cannabinoids (Urine) POSITIVE Abnormal Cocaine Metabolite (Urine) Negative Methadone (Urine) Negative Opiates (Urine) Negative Urine Cutoffs * 104 Screening urine 11/18/2016 N2N/CCD Import Screening urine Negative barbiturate detection barbiturate detection Screening urine 11/18/2016 N2N/CCD Import Screening urine Negative opiates detection opiates detection Urine amphetamines 11/18/2016 N2N/CCD Import Urine amphetamines Negative detection by screening detection by screening method method Urine benzodiazepines 11/18/2016 N2N/CCD Import Urine benzodiazepines Negative measurement by measurement by screening met screening method (mass/volume) Urine benzoylecgonine 11/18/2016 N2N/CCD Import Urine benzoylecgonine Negative detection by screening detection by screening metho method 1 R76.11 ( R19.7) 2 Method: Sediplast Modified Westergren 3 Shiga Toxin 2 Not Detected Method: ImmunoCard Stat/Ehec Rapid Immunochromatographic Assay 4 Note: Persistent reduction for 3 months or more in an eGFR <60 mL/min/1.73 m2 defines CKD. Patients with eGFR values >/=60 mL/min/1.73 m2 may also have CKD if evidence of persistent proteinuria is present. The original MDRD equation for estimated GFR is not valid for patients less than 18 years of age. Additional information may be found at www.kdoqi.org. 5 NEGATIVE FOR CRYPTOSPORIDIUM SPECIFIC ANTIGEN 6 NEGATIVE FOR GIARDIA SPECIFIC ANTIGEN. The specimen will be held for 5 days. Additional testing may be performed upon request if the antigen tests are negative, and the patient is still symptomatic or has traveled to an endemic region. Method: Alere Quik Chek Rapid Membrane Enzyme Immunoassay 7 Concentration Interpretation Follow-Up <16 - 50 ug/g Normal None >50 -120 ug/g Borderline Re-evaluate in 4-6 weeks >120 ug/g Abnormal Repeat as clinically indicated Performed at: [address] [id number] Health Administrator: Elza Segundo MD, Phone: [phone] Performed at: [address] [id number] Health Administrator: Nikhil Zhao MD, Phone: [phone] INFCE Result Units: ug Elast./g Severe Pancreatic Insufficiency: <100 Moderate Pancreatic Insufficiency: 100 - 200 Normal: >200 9 Normal (<60 Droplets/HPF) 10 Normal (<100 Droplets/HPF) 11 Negative for toxigenic C. difficile by PCR 12 NO ENTERIC PATHOGENS ISOLATED 13 ................................................... 14 INCLUDES TESTING FOR SALMONELLA, SHIGELLA, AEROMONAS, 15 PLESIOMONAS, CAMPYLOBACTER, AND E. COLI 0157:H7 16 ................................................... 17 YERSINIA AND VIBRIO ARE NOT ROUTINELY SCREENED FOR AND 18 SHOULD BE REQUESTED SEPARATELY 19 SHIGA TOXIN 1 NOT DETECTED 20 SHIGA TOXIN 2 NOT DETECTED Method: ImmunoCard STAT/EHEC Rapid Immunochromatographic Assay 21 B18.2 22 HCV Not Detected 23 The quantitative range of this assay is 15 IU/mL to 100 million IU/mL. Performed at: [facility] [address] [place] [address] Health Administrator: Jarrett Pritchett MD Performed at: [address] [id number] Health Administrator: Elza Segundo MD, Phone: [phone] 24 R76.11 (B18.2 ONE TIME) B18.2 B18.2 25 Note: Persistent reduction for 3 months or more in an eGFR <60 mL/min/1.73 m2 defines CKD. Patients with eGFR values >/=60 mL/min/1.73 m2 may also have CKD if evidence of persistent proteinuria is present. The original MDRD equation for estimated GFR is not valid for patients less than 18 years of age. Additional information may be found at www.kdoqi.org. 26 The quantitative range of this assay is 15 Iu/mL to 100 million Iu/mL. Performed at: -[facility] [address] [id number] Health Administrator: Jarrett Pritchett MD Performed at: - [facility] [address] [id number] Health Administrator: Elza Segundo MD, Phone: [phone] R76.11 28 Note: Persistent reduction for 3 months or more in an eGFR <60 mL/min/1.73 m2 defines CKD. Patients with eGFR values >/=60 mL/min/1.73 m2 may also have CKD if evidence of persistent proteinuria is present. The original MDRD equation for estimated GFR is not valid for patients less than 18 years of age. Additional information may be found at [email or web address]. 29 D64.9 30 Results consistent with previous results 31 Note: Persistent reduction for 3 months or more in an eGFR <60 mL/min/1.73 m2 defines CKD. Patients with eGFR values >/=60 mL/min/1.73 m2 may also have CKD if evidence of persistent proteinuria is present. The original MDRD equation for estimated GFR is not valid for patients less than 18 years of age. Additional information may be found at [email or web address]. 32 B18.2 CHRONIC VIRAL HEP C 33 Note: Persistent reduction for 3 months or more in an eGFR <60 mL/min/1.73 m2 defines CKD. Patients with eGFR values >/=60 mL/min/1.73 m2 may also have CKD if evidence of persistent proteinuria is present. The original MDRD equation for estimated GFR is not valid for patients less than 18 years of age. Additional information may be found at [email or web address]. 34 INFCE Result Units: log10 IU/mL 35 The quantitative range of this assay is 15 IU/mL to 100 million IU/mL. Performed at: [address] [id number] Health Administrator: Elza Segundo MD, Phone: [phone] 36 HBV DNA not detected 37 Unable to calculate result since non-numeric result obtained for component test. 38 The reportable range for this assay is 10 IU/mL to 1 billion IU/mL. 39 Performed at: [address] [id number] Health Administrator: Ammon Galvin MD, Phone: [phone] Performed at: [address] [id number] Health Administrator: Elza Segundo MD, Phone: [phone] 40 R76.11 41 No acid fast bacilli isolated after 6 weeks. Performed at: [address] [id number] Health Administrator: Elza Segundo MD, Phone: [phone] 42 R76.11, B18.2 43 HCV GenoSure(TM) NS5A Comments: NS5A RAVs at position(s) 28, 30, 31 or 93 NOT DETECTED. If considering an NS5A inhibitor-containing regimen, please refer to the prescribing information, or current guidelines, to determine the appropriate treatment regimen and duration. HCV Genotype: 1a Drug Brand/ Genotypic Generic Name Regimen Assessment Comments -------- NS5AI Daclatasvir Daklinza None/Undetermined DCV RAVs*: None Elbasvir Zepatier None/Undetermined EBR RAVs*: None Ledipasvir Harvoni None/Undetermined LDV RAVs*: None Ombitasvir Viekira Massimo None/Undetermined OBV RAVs*: None Pibrentasvir Mavyret None/Undetermined PIB RAVs*: None Velpatasvir Epclusa/ None/Undetermined Vosevi BRANDON RAVs*: None *RAVs=Resistance Associated Variants detected Summary of All Variants Observed: NS5A I34I/V, R44R/K, K107K/T, R123R/Q, D126D/E, S131T, I144V, L153L/V, E171E/D, R176R/S, E181E/D, M226V, A241A/G, T242T/A, V296I, A310A/T, R311Q, T328T/P, R348R/K/Q, K357K/R, L368V, S396S/P, P401S, V410A, G439G/E, D441D/G Important Definitions Resistance Possible - Resistance Associated Variants (RAVs) detected that (a) represent naturally-occurring polymorphisms or treatment-emergent variants associated with reductions in sustained virologic response (SVR) rates, (b) emerge during direct-acting antiviral (DAA)-treatment or relapse, and/or (c) may confer reductions in susceptibility based on in vitro data. Refer to prescribing information for specific details regarding the impact of these variants on treatment response in defined patient populations and when administered in combination with other antiviral agents. None/Undetermined - None; no RAVs detected. Undetermined; variants detected that have a subtle or uncertain impact on DAA-treatment responses. All variants are reported relative to the HCV genotype/subtype specific reference H77. Assessment is based on a rules-based algorithm (version 6). Naturally-occurring polymorphisms may impact the emergence of resistance, leading to failure of DAA combination therapy Naturally-occurring DAA resistance-associated polymorphisms identified at baseline may impact SVR if the treatment regimen, or adherence, is suboptimal. The impact of these polymorphisms may vary in treatment-naive and treatment-experienced patients and with varying disease states (e.g. non-cirrhotic vs cirrhotic) Reduced susceptibility to any one component of a DAA-containing regimen may be overcome by the activity of the other components of the regimen and/or longer treatment duration Treatment emergent RAVs may persist for prolonged periods of time and may impact subsequent treatment regimens 44 For more information on interpreting this report, please call [employer] Service at [phone] between the hours of 6:30am to 5:00pm [place] Time Thursday through Thursday. This assay is performed using a next-generation sequencing platform that analyzes the specified non-structural coding regions of HCV. Variants are reported at a sensitivity that has been demonstrated to be equivalent to that of [place]/population sequencing. Genotype assignment is determined from the sequence of the specified regions that are derived using subtype specific methodology, and should not be used to establish or confirm the HCV genotype. HCV genotype determination should only be done with an assay intended for that purpose. This assay was validated by testing samples with viral loads equal to or above 500 IU/mL and should be interpreted only on such specimens. This assay meets the standards for performance characteristics and all other principal quality engineer and assurance requirements established by CLIA. The results should not be used as the sole criteria for patient management. This test was developed and its performance characteristics determined by [facility]. It has not been cleared or approved by the FDA. The results have been disclosed to you from confidential records protected by law and are not to be disclosed to unauthorized persons. Further disclosure of these results is prohibited without specific consent of the persons to whom it pertains, or as permitted by law. 45 Note: [facility] considers any TB antigen minus Nil value between 0.35 and 2.0 to be low positive result. The CDC has stated the following "In healthy persons who have a low likelihood both of M tuberculosis infection and of progression to active tuberculosis if infected, a single positive Interferon gamma release assay (IGRA) or tuberculin skin test (TST) result should not be taken as reliable evidence of M tuberculosis infection. Because of the low probability of infection, a false-positive is more likely. In such situations the likelihood of M tuberculosis infection and of disease progression should be reassessed, and the initial test results should be confirmed (on a new specimen). Repeat testing with either the initial test or a different test, may be considered on a hmpa-yl-evwc basis. For such persons, an alternative is to assume, without additional testing, that the initial result is a false positive." (MMWR, 2010;59(HC-67) t54). The specimen received for QuantiFERON testing was incubated by the ordering institution. Specific procedures outlined in our Directory of Services and in the package insert for the QuantiFERON Gold (In Tube) test must be followed to enable for proper stimulation of cells for the production of interferon gamma. 46 To be considered positive a specimen should have a TB Ag minus Nil value greater than or equal to 0.35 IU/mL and in addition the TB Ag minus Nil value must be greater than or equal to 25% of the Nil value. There may be insufficient information in these values to differentiate between some negative and some indeterminate test values. 47 The QuantiFERON TB Gold (in Tube) assay is intended for use as an aid in the diagnosis of TB infection. Negative results suggest that there is no TB infection. In patients with high suspicion of exposure, a negative test should be repeated. A positive test indicates infection with Mycobacterium tuberculosis. Among individuals without tuberculosis infection, a positive test may be due to exposure to M. kansasii, M. szulgai or M. marinum. On the Internet, go to cdc.gov/tb for further details. Performed at: [facility] [address] [id number] Health Administrator: Elza Segundo MD, Phone: [phone] 48 Verified by repeat analysis Performed at: [facility] [address] [place] [id number] Health Administrator: Brandon Ibarra MD, Phone: [phone] Performed at: [facility] [address] [id number] Health Administrator: Elza Segundo MD, Phone: [phone] 49 Note: Persistent reduction for 3 months or more in an eGFR <60 mL/min/1.73 m2 defines CKD. Patients with eGFR values >/=60 mL/min/1.73 m2 may also have CKD if evidence of persistent proteinuria is present. The original MDRD equation for estimated GFR is not valid for patients less than 18 years of age. Additional information may be found at [email or web address]. 50 VERTIGO,CONFUSION R42, R41.0 51 Performed at: [facility] [address] [place] [id number] Health Administrator: Brandon Ibarra MD, Phone: [phone] Performed at: [facility] [address] [id number] Health Administrator: Elza Segundo MD, Phone: [phone] 52 HCV GenoSure(TM) NS5A Comments: NS5A RAVs at position(s) 28, 30, 31 or 93 NOT DETECTED. If considering an NS5A inhibitor-containing regimen, please refer to the prescribing information, or current guidelines, to determine the appropriate treatment regimen and duration. HCV Genotype: 1a Drug Brand/ Genotypic Generic Name Regimen Assessment Comments -------- NS5AI Daclatasvir Daklinza None/Undetermined DCV RAVs*: None Elbasvir Zepatier None/Undetermined EBR RAVs*: None Ledipasvir Harvoni None/Undetermined LDV RAVs*: None Ombitasvir Viekira Massimo None/Undetermined OBV RAVs*: None Pibrentasvir Mavyret None/Undetermined PIB RAVs*: None Velpatasvir Epclusa/ None/Undetermined Vosevi BRANDON RAVs*: None *RAVs=Resistance Associated Variants detected Summary of All Variants Observed: NS5A I34I/V, R44R/K, K107K/T, R123R/Q, D126D/E, S131T, I144V, L153L/V, E171E/D, R176R/S, E181E/D, M226V, T242T/A, V296I, A310A/T, R311Q, T328T/P, R348R/K/Q, K357K/R, L368V, S396S/P, P401S, V410A, G439G/E, D441D/G Important Definitions Resistance Possible - Resistance Associated Variants (RAVs) detected that (a) represent naturally-occurring polymorphisms or treatment-emergent variants associated with reductions in sustained virologic response (SVR) rates, (b) emerge during direct-acting antiviral (DAA)-treatment or relapse, and/or (c) may confer reductions in susceptibility based on in vitro data. Refer to prescribing information for specific details regarding the impact of these variants on treatment response in defined patient populations and when administered in combination with other antiviral agents. None/Undetermined - None; no RAVs detected. Undetermined; variants detected that have a subtle or uncertain impact on DAA-treatment responses. All variants are reported relative to the HCV genotype/subtype specific reference H77. Assessment is based on a rules-based algorithm (version 6). Naturally-occurring polymorphisms may impact the emergence of resistance, leading to failure of DAA combination therapy Naturally-occurring DAA resistance-associated polymorphisms identified at baseline may impact SVR if the treatment regimen, or adherence, is suboptimal. The impact of these polymorphisms may vary in treatment-naive and treatment-experienced patients and with varying disease states (e.g. non-cirrhotic vs cirrhotic) Reduced susceptibility to any one component of a DAA-containing regimen may be overcome by the activity of the other components of the regimen and/or longer treatment duration Treatment emergent RAVs may persist for prolonged periods of time and may impact subsequent treatment regimens 53 For more information on interpreting this report, please call [employer] Customer Service at [phone] between the hours of 6:30am to 5:00pm [place] Time Thursday through Thursday. This assay is performed using a next-generation sequencing platform that analyzes the specified non-structural coding regions of HCV. Variants are reported at a sensitivity that has been demonstrated to be equivalent to that of [place]/population sequencing. Genotype assignment is determined from the sequence of the specified regions that are derived using subtype specific methodology, and should not be used to establish or confirm the HCV genotype. HCV genotype determination should only be done with an assay intended for that purpose. This assay was validated by testing samples with viral loads equal to or above 500 IU/mL and should be interpreted only on such specimens. This assay meets the standards for performance characteristics and all other principal quality engineer and assurance requirements established by CLIA. The results should not be used as the sole criteria for patient management. This test was developed and its performance characteristics determined by [facility]. It has not been cleared or approved by the FDA. The results have been disclosed to you from confidential records protected by law and are not to be disclosed to unauthorized persons. Further disclosure of these results is prohibited without specific consent of the persons to whom it pertains, or as permitted by law. 54 Note: Persistent reduction for 3 months or more in an eGFR <60 mL/min/1.73 m2 defines CKD. Patients with eGFR values >/=60 mL/min/1.73 m2 may also have CKD if evidence of persistent proteinuria is present. The original MDRD equation for estimated GFR is not valid for patients less than 18 years of age. Additional information may be found at [email or web address]. 55 10/12 & 10/13 @ 9:00 report to cardiology ofeynodN34.11 R76.11 56 Acid Fast Culture: Negative No acid fast bacilli isolated after 6 weeks Performed at: RN - [facility] [address] [id number] Health Administrator: Elza Segundo MD, Phone: [phone] 57 Protein electrophoresis scan will follow via computer, mail, or baked goods stock clerk delivery. 58 The SPE pattern appears essentially unremarkable. Evidence of monoclonal protein is not apparent. 59 Note: Persistent reduction for 3 months or more in an eGFR <60 mL/min/1.73 m2 defines CKD. Patients with eGFR values >/=60 mL/min/1.73 m2 may also have CKD if evidence of persistent proteinuria is present. The original MDRD equation for estimated GFR is not valid for patients less than 18 years of age. Additional information may be found at [email or web address]. 60 R76.11 61 Note: [facility] considers any TB antigen minus Nil value between 0.35 and 2.0 to be low positive result. The CDC has stated the following "In healthy persons who have a low likelihood both of M tuberculosis infection and of progression to active tuberculosis if infected, a single positive Interferon gamma release assay (IGRA) or tuberculin skin test (TST) result should not be taken as reliable evidence of M tuberculosis infection. Because of the low probability of infection, a false-positive is more likely. In such situations the likelihood of M tuberculosis infection and of disease progression should be reassessed, and the initial test results should be confirmed (on a new specimen). Repeat testing with either the initial test or a different test, may be considered on a vszr-xv-wkge basis. For such persons, an alternative is to assume, without additional testing, that the initial result is a false positive." (MMWR, 2010;59RR-05 p12). The specimen received for QuantiFERON testing was incubated by the ordering institution. Specific procedures outlined in our Directory of Services and in the package insert for the QuantiFERON Gold (In Tube) test must be followed to enable for proper stimulation of cells for the production of interferon gamma. 62 To be considered positive a specimen should have a TB Ag minus Nil value greater than or equal to 0.35 IU/mL and in addition the TB Ag minus Nil value must be greater than or equal to 25% of the Nil value. There may be insufficient information in these values to differentiate between some negative and some indeterminate test values. 63 The QuantiFERON TB Gold (in Tube) assay is intended for use as an aid in the diagnosis of TB infection. Negative results suggest that there is no TB infection. In patients with high suspicion of exposure, a negative test should be repeated. A positive test indicates infection with Mycobacterium tuberculosis. Among individuals without tuberculosis infection, a positive test may be due to exposure to M. kansasii, M. szulgai or M. marinum. On the Internet, go to cdc.gov/tb for further details. Performed at: [address] [id number] Health Administrator: Elza Segundo MD, Phone: [phone] 64 Performed at: [address] [id number] Health Administrator: Elza Segundo MD, Phone: [phone] 65 An apparent normal immunofixation pattern. 66 VOMITING WITHOUT NAUSEA B18.2 D64.9 67 Note: Persistent reduction for 3 months or more in an eGFR <60 mL/min/1.73 m2 defines CKD. Patients with eGFR values >/=60 mL/min/1.73 m2 may also have CKD if evidence of persistent proteinuria is present. The original MDRD equation for estimated GFR is not valid for patients less than 18 years of age. Additional information may be found at [email or web address]. 68 An apparent normal immunofixation pattern. 69 Performed at: [address] [id number] Health Administrator: Elza Segundo MD, Phone: [phone] 70 Protein electrophoresis scan will follow via computer, mail, or baked goods stock clerk delivery. 71 The SPE pattern appears essentially unremarkable. Evidence of monoclonal protein is not apparent. 72 VOMITTING WITHOUT NAUSEA B18.2 73 INFCE Result Units: log10 IU/mL 74 The quantitative range of this assay is 15 IU/mL to 100 million IU/mL. To be performed on this specimen. 75 This test was developed and its performance characteristics determined by [facility]. It has not been cleared or approved by the U.S. Food and Drug Administration. The FDA has determined that such clearance or approval is not necessary. This test is used for clinical purposes. It should not be regarded as investigational or for research. 76 Performed at: [address] [id number] Health Administrator: Elza Segundo MD, Phone: [phone] 77 Non Reactive: Inconsistent with immunity, less than 10 mIU/mL Reactive: Consistent with immunity, greater than 9.9 mIU/mL 78 Protein electrophoresis scan will follow via computer, mail, or baked goods stock clerk delivery. 79 The SPE pattern appears essentially unremarkable. Evidence of monoclonal protein is not apparent. 80 Negative 0 - 19 Weak Positive 20 - 30 Moderate to Strong Positive >30 81 Negative 0 - 19 Weak Positive 20 - 30 Moderate to Strong Positive >30 82 Negative 0 - 3 Weak Positive 4 - 10 Positive >10 Tissue Transglutaminase (tTG) has been identified as the endomysial antigen. Studies have demonstr- ated that endomysial IgA antibodies have over 99% specificity for gluten sensitive enteropathy. 83 Negative 0 - 5 Weak Positive 6 - 9 Positive >9 84 Negative 0.0 - 20.0 Equivocal 20.1 - 24.9 Positive >24.9 Mitochondrial (M2) Antibodies are found in 90-96% of patients with primary biliary cirrhosis. 85 Negative 0 - 19 Weak positive 20 - 30 Moderate to strong positive >30 Actin Antibodies are found in 52-85% of patients with autoimmune hepatitis or chronic active hepatitis and in 22% of patients with primary biliary cirrhosis. 86 Performed at: [address] [id number] Health Administrator: Elza Segundo MD, Phone: [phone] Performed at: [address] [id number] Health Administrator: Ammon Galvin MD, Phone: [phone] 87 F1 - Portal fibrosis 88 Quantitative results of 6 biochemical tests are analyzed using a computational algorithm to provide a quantitative surrogate marker (0.0-1.0) for liver fibrosis (METAVIR F0- F4) and for necroinflammatory activity (METAVIR A0-A3). 89 <0.21=Stage F0 - No fibrosis 0.21 - 0.27=Stage F0 - F1 0.27 - 0.31=Stage F1 - Portal fibrosis 0.31 - 0.48=Stage F1 - F2 0.48 - 0.58=Stage F2 - Bridging fibrosis with few septa 0.58 - 0.72=Stage F3 - Bridging fibrosis with many septa 0.72 - 0.74=Stage F3 - F4 >0.74=Stage F4 - Cirrhosis 90 <0.17=Grade A0 - No Activity 0.17 - 0.29=Grade A0 - A1 0.29 - 0.36=Grade A1 - Minimal activity 0.36 - 0.52=Grade A1 - A2 0.52 - 0.60=Grade A2 - Moderate activity 0.60 - 0.62=Grade A2 - A3 >0.62=Grade A3 - Severe activity 91 The negative predictive value of a Fibrotest score <0.31 (absence of clinically significant fibrosis) was 85% when compared to liver biopsy in 1,270 HCV infected patients with a 38% prevalence of significant liver fibrosis (F2, 3 or 4). The positive predictive value of a Fibro-test score >0.48 (F2, 3, 4) was 61% in that same patient cohort. HCV FibroSURE is not recommended in patients with Gilbert Disease, acute hemolysis (e.g. HCV ribavirin therapy mediated hemolysis) acute hepa-titis of the liver, extra- hepatic cholestasis, transplant patients, and/or renal insufficiency patients. Any of these clinical situations may lead to inaccurate quantitative predictions of fibrosis and necroinflammatory activity in the liver. 92 This test was developed and its performance characteristics determined by [facility]. It has not been cleared or approved by the Food and Drug Administration. The FDA has determined that such clearance or approval is not necessary. For questions regarding this report please contact customer service at [phone]. 93 HTN URGENCY 94 Note: Persistent reduction for 3 months or more in an eGFR <60 mL/min/1.73 m2 defines CKD. Patients with eGFR values >/=60 mL/min/1.73 m2 may also have CKD if evidence of persistent proteinuria is present. The original MDRD equation for estimated GFR is not valid for patients less than 18 years of age. Additional information may be found at [email or web address]. 95 NAUSEA, VOMITING 96 Note: Persistent reduction for 3 months or more in an eGFR <60 mL/min/1.73 m2 defines CKD. Patients with eGFR values >/=60 mL/min/1.73 m2 may also have CKD if evidence of persistent proteinuria is present. The original MDRD equation for estimated GFR is not valid for patients less than 18 years of age. Additional information may be found at [email or web address]. 97 Note: Persistent reduction for 3 months or more in an eGFR <60 mL/min/1.73 m2 defines CKD. Patients with eGFR values >/=60 mL/min/1.73 m2 may also have CKD if evidence of persistent proteinuria is present. The original MDRD equation for estimated GFR is not valid for patients less than 18 years of age. Additional information may be found at [email or web address]. 98 NAUSEA,VOMITING 99 Tests: magnesium Instructions: 100 Note: Persistent reduction for 3 months or more in an eGFR <60 mL/min/1.73 m2 defines CKD. Patients with eGFR values >/=60 mL/min/1.73 m2 may also have CKD if evidence of persistent proteinuria is present. The original MDRD equation for estimated GFR is not valid for patients less than 18 years of age. Additional information may be found at [email or web address]. 101 NAUSEA, VOMITING 102 INFCE Result Units: s/co ratio Negative: < 0.8 Indeterminate: 0.8 - 0.9 Positive: > 0.9 The CDC recommends that a positive HCV antibody result be followed up with a HCV Nucleic Acid Amplification test (116141). Performed at: RN - [facility] [address] [id number] Health Administrator: Elza Segundo MD, Phone: [phone] 103 NAUSEA,VOMITING 104 URINE SPECIMENS ARE SCREENED AT THE LISTED CUTOFFS DRUG CLASS INITIAL TEST LEVEL Amphetamines 1000 ng/mL Barbiturates 200 ng/mL Benzodiazepines 200 ng/mL Cannabinoids 50 ng/mL Cocaine Metabolite 300 ng/mL Methadone 300 ng/mL Opiates 300 ng/mL Any PRESUMPTIVE POSITIVE findings are UNCONFIRMED. Confirmatory testing is suggested if findings are unexpected. Please contact laboratory if confirmatory testing is desired. SPECIMENS ARE HELD FOR 72 HOURS. Procedures Date Code Description Status 04/30/2018 47267 Echocardiogram Complete Completed 04/30/2018 [id number] EKG Interpretation And Report Only Completed 06/22/2017 [id number] Eye Exam New Patient Comprehensive Completed 03/30/2014 [id number] Anesthesia, Facial Bone Surgery Not Otherwise Spec Completed Encounters Type Date Location Provider Dx Diagnosis Office Visit 03/02/2018 Enrique Ndiaye MD B18.2 Chronic viral 4:45p hepatitis C R19.7 Diarrhea, unspecified Office Visit 01/20/2018 3:00p Physical Medicine Romana Romero R76.11 Nonspecific & Infectious M.D. reaction to skin Disease test w/o active tuberculosis N18.4 Chronic kidney disease, stage 4 (severe) F17.210 Nicotine dependence, cigarettes, uncomplicated B18.2 Chronic viral hepatitis C Z71.6 Tobacco abuse counseling Office Visit 01/19/2018 10:30a Oncology Office [place], D64.9 Anemia, Gamaliel, DO unspecified N18.4 Chronic kidney disease, stage 4 (severe) Office Visit 01/08/2018 8:45a Dennis Villar.Delroy Chronic viral MD hepatitis C Office Visit 12/18/2017 10:45a Dennis Villar.Delroy Chronic viral MD hepatitis C Office Visit 11/13/2017 11:30a Dennis Villar.Delroy Chronic viral MD hepatitis C Office Visit 10/26/2017 1:30p Physical Medicine Romana Romero, R76.11 Nonspecific & Infectious M.D. reaction to skin Disease test w/o active tuberculosis F17.210 Nicotine dependence, cigarettes, uncomplicated B18.2 Chronic viral hepatitis C E11.65 Type 2 diabetes mellitus with hyperglycemia Office Visit 10/07/2017 4:15p YAZMIN Mcmahon MD B18.2 Chronic viral hepatitis C N18.2 Chronic kidney disease, stage 2 (mild) Office Visit 09/23/2017 2:00p Physical Medicine Romana Romero, R76.11 Nonspecific & Infectious M.D. reaction to skin Disease test w/o active tuberculosis B18.2 Chronic viral hepatitis C N18.2 Chronic kidney disease, stage 2 (mild) E11.65 Type 2 diabetes mellitus with hyperglycemia Office Visit 09/18/2017 10:30a Oncology Office [place] B18.2 Chronic viral Gamaliel, DO hepatitis C N18.2 Chronic kidney disease, stage 2 (mild) D63.1 Anemia in chronic kidney disease Office Visit 09/04/2017 2:00p Oncology Office [place] B18.2 Chronic viral Gamaliel, DO hepatitis C D64.9 Anemia, unspecified Office Visit 09/02/2017 4:15p Dennis Villar.Delroy Chronic viral MD hepatitis C Office Visit 09/17/2014 1:07p Brady Mireles, 577.0 Pancreatitis [facility] Nancy DO Center Office Visit 09/10/2014 1:03p Brady Zamudio, 536.3 Gastroparesis [facility] MD [facility] 250.00 Diabetes Mellitus W/O Compl Type II Or Unspec Controlled 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 Plan of Treatment Future Appointment(s):05/25/2018 1:10 pm - Ruchi Bolton PA at Cardiology [id number]/18/2018 10:15 am - Enrique Diane MD at GI04/13/2018 - Enrique Liu [id number] Type 2 diabetes mellitus with mild nonproliferative diabetic retinopathy without macular edema, bilateralComments:- mild non- proliferative retinopathy, left eye- mild non-proliferative diabetic retinopathy , right eye- no macular edema- no neovascularization- glycemic, bp, lipid, weight control- potential for retinopathy, vision loss, and potential need for treatment- letter to primaryFollow up:9 months dilate ou; oct [id number] Essential (primary) hypertensionComments:- signs of hypertensive retinopathy- no sign of retinal vascular occlusion- no sign of macular edema- bp control to optimize cardiovascular risk factors
[2018-06-02 10:20] LABS: ALT 15 U/L (7-52); AST 20 U/L (13-39); Albumin 3.2 g/dL (3.2-5.2); Albumin/Globulin Ratio 0.8 (1-3); Alkaline Phosphatase 111 U/L (34-104); Anion Gap 9 mmol/L (2-11); BUN/Creatinine Ratio 6.6 (8-20); Blood Urea Nitrogen 29 mg/dL (6-24); C Reactive Protein < 1.00 mg/L (<8.01); CO2 Carbon Dioxide 27 mmol/L (22-32); Calcium 9.2 mg/dL (8.6-10.3); Chloride 98 mmol/L (101-111); EGFR African American 16.8 (>60); EGFR Non-African American 13.9 (>60); Globulin 3.9 g/dL (2-4); Glucose 194 mg/dL (70-100); Potassium 3.8 mmol/L (3.5-5.0); Sodium 134 mmol/L (135-145); Total Protein 7.1 g/dL (6.4-8.9)
[2018-06-02 11:45] LABS: Influenza A Molecular NEGATIVE (Negative); Influenza B Molecular NEGATIVE (Negative)
[2018-06-02 13:30] VITALS: BP 129/76
== END 2018-06-02 13:25 | disposition home or self-care (01) ==
LOC: ED 09:28
DX: D64.9 Anemia, unspecified (principal); R68.0 Hypothermia, not associated with low environmental temperature; R11.2 Nausea with vomiting, unspecified; R53.1 Weakness; E11.621 Type 2 diabetes mellitus with foot ulcer; E11.22 Type 2 diabetes mellitus with diabetic chronic kidney disease; N18.9 Chronic kidney disease, unspecified; Z79.84 Long term (current) use of oral hypoglycemic drugs; E03.9 Hypothyroidism, unspecified; E78.00 Pure hypercholesterolemia, unspecified; I10 Essential (primary) hypertension; L97.519 Non-pressure chronic ulcer of other part of right foot with unspecified severity; L97.529 Non-pressure chronic ulcer of other part of left foot with unspecified severity
CPT/HCPCS: 36415; 71045; 80053; 83605; 83880; 84484; 85025; 85610; 85730; 86140; 87040; 99283

== ENCOUNTER 2018-06-04 11:47 | Day surgery (SDC) | payer OTHER ==
--- NOTE | 2018-06-04 12:15 | HP ---
HISTORY AND PHYSICAL: DATE OF ADMISSION: 06/04/18. CHIEF COMPLAINT: Endstage renal disease. HISTORY OF PRESENT ILLNESS: The patient is a 58-year-old male with history of chronic kidney disease that was being treated conservatively. Approximately 2 weeks ago, the patient did not feel good, went to the emergency room, he was found to have extremely elevated potassium and BUN and creatinine that required emergency dialysis. He was then transferred to [facility] where he underwent a placement of a temporary tunneled dialysis catheter on the right internal jugular and the patient now is being admitted for a definitive placement of an arteriovenous fistula on the left arm. PAST MEDICAL HISTORY: Remarkable for: 1. Chronic kidney disease, endstage renal disease, requiring hemodialysis. 2. Chronic anemia secondary to kidney disease. 3. Secondary hyperparathyroidism secondary to kidney disease. 4. History of arthritis. 5. History of type 2 diabetes, managed with diet and medication. 6. History of hepatitis C that was treated in the past and the patient is currently in remission. 7. The patient has history of anemia and arthritis. CURRENT MEDICATIONS: Include: 1. Amlodipine 10 mg p.o. q.d. 2. Atorvastatin 40 mg p.o. q.d. 3. Calcium acetate 667 mg 2 tablets p.o. daily. 4. Carvedilol 6.25 mg half a tablet p.o. b.i.d. 5. Glipizide ER 5 mg p.o. q.d. 6. Hydralazine 10 mg/25 mg p.o. q.8 hours. 7. Levothyroxine 50 mcg p.o. daily. 8. Nicotine transdermal 14 mg 24-hour patches. 9. Trazodone 50 mg p.o. q.h.s. 10. Vitamin D3 1000 units p.o. daily. ALLERGIES: Patient has no known allergies. FAMILY HISTORY: Patient had history of diabetes and hypertension. SOCIAL HISTORY: The patient smokes less than 5 cigarettes a day, used to be a heavy smoker, smoking approximately 1 pack a day. REVIEW OF SYSTEMS: Contributory. Musculoskeletal: Arthritis. Endocrine: Diabetes and secondary hyperparathyroidism. Genitourinary: Kidney disease. Mental: History of depression. Cardiorespiratory: History of shortness of breath. Cardiovascular: History of hypertension. PHYSICAL EXAMINATION GENERAL: The patient is alert and oriented, in no acute distress. HEAD AND NECK: Reveals a tunneled dialysis catheter into the internal jugular, appears to be in good location and functioning well. LUNGS: Clear to auscultation bilaterally. HEART: Regular without murmurs. ABDOMEN: Unremarkable. EXTREMITY EXAMINATION: Upper extremity, the patient has excellent palpable pulses at the brachials, axillaries, and radials bilaterally. The patient is right hand dominant. The lower extremities reveal mild edema and excellent palpable pulses. DIAGNOSTIC IMPRESSION: Endstage renal disease. The patient is being admitted for placement of arteriovenous fistula ([place]) of the left arm. This to be performed under sedation local anesthesia possible block. Patient understands that the potential complications including, but not exclusive of others such as infection, bleeding, malfunctioning of the fistula. Patient understands, agrees , and wishes to proceed. [id number]/CPS #: [id number] MTDD
[2018-06-04] MEDS ORDERED: Heparin DIALYSIS ONLY(*) 1,000 UNITS/ML VIAL ONE ×3 (13:31→15:07)
[2018-06-04] MEDS ORDERED: Bupivacaine 0.25% W/EPI* 10 ML SDV ONE (13:31)
[2018-06-04] MEDS ORDERED: Lidocaine 1% INJ* 10 MG/ML 30 ML SDV ONE (13:32)
[2018-06-04] MEDS ORDERED: Heparin 2 UNITS/ML IVPREMIX* 1,000 ML IV ONE (13:36)
[2018-06-04] MEDS ORDERED: ceFAZolin 1 GM ADVAN(*) 1 GM ADDV.VIAL IVPB ONE (14:20)
[2018-06-04] MEDS ORDERED: fentaNYL* 50 MCG/ML 2 ML VIAL (100 MCG VIAL) ONE (14:33)
[2018-06-04] MEDS ORDERED: Midazolam* 1 MG/ML 2 ML VIAL (2 MG) ONE (14:33)
[2018-06-04] MEDS ORDERED: Naloxone* 0.4 MG/ML 1 ML VIAL IV PRN (15:04)
[2018-06-04 17:12] VITALS: BP 146/79
--- NOTE | 2018-06-04 20:30 | OP ---
CC: Dr. Olsen's office * DATE OF OPERATION: 06/04/18 - [facility] DATE OF : 58 SURGEON: Tyrese Goodman MD ARTIFICIAL CHERRY MAKER: Haylee Mirza NP. ANESTHESIA: Local plus MAC. PRE-OP DIAGNOSIS: End-stage renal disease. POST-OP DIAGNOSIS: End-stage renal disease. OPERATIVE PROCEDURE: Left arteriovenous fistula ([place]). INDICATIONS: The patient is a 58-year-old male with endstage renal disease secondary to diabetes and hypertension. The patient had been dialyzed via a temporary right internal jugular catheter and he is undergoing a galena AV fistula for chronic hemodialysis. ESTIMATED BLOOD LOSS: Approximately 50 cc. DESCRIPTION OF PROCEDURE: The patient was taken to the procedure room. The left arm was marked as the ideal fistula site. The patient is right hand dominant. After proper identification of the patient and site of surgery, he was placed in the supine position. He was prepped and draped in the usual sterile fashion. After appropriate time-out, we proceeded to infiltrate lidocaine 1% on the lateral aspect of the left wrist. Once this was done, an up and down incision in this area measuring approximately 4 cm in length was performed. The incision was carried down through skin, subcutaneous tissue. Bleeders were controlled by electrocoagulation. The cephalic vein was identified, dissected off, and circled in vessel loops. Care was taken to avoid the radial nerve which was identified and preserved. The radial artery was then exposed and circled in vessel loops and after this was completed, the patient received 3000 units of heparin and after 5 minutes, we then proceeded to cross clamp the distal end of the cephalic vein, ligated and divided it. We proceeded to then dilate the proximal end of the cephalic vein with coronary dilators starting with the 2 mm going up all the way to 4 mm in diameter. We then proceed to infiltrate with heparinized saline. We proceeded to spatulate the end of the vein for a distance of a cm and after this was done, we then proceeded to cross clamp the radial artery proximally and distally and arteriotomy was performed with an 11 blade and extended with Hughes scissors. Once this was completed, we then proceeded to perform an end-to-side anastomosis using a parachute technique using 7-0 Prolene. Once this was completed and the anastomosis was completed, we then proceeded to release the Yasargil clamp from the cephalic vein and proceeded to release the radial artery clamps. Flow was established into the fistula. Bleeders were controlled by electrocoagulation and suture ligation. At the end of the procedure, there was no bleeding. There was excellent thrill. Almost all the way up to forearm, there was no bleeding. The incision was then closed using 4- 0 Vicryl for subcutaneous tissue and for the skin 5-0 Monocryl. Steri-Strips were applied. The patient tolerated the procedure well and he was taken in good condition to recovery room. [id number]/[facility] #: [id number] [facility]ARE SYSTEMBrandon
== END 2018-06-04 21:09 | disposition home or self-care (01) ==
LOC: OR 11:47
PROVIDERS: ATTEND Surgery
DX: E11.22 Type 2 diabetes mellitus with diabetic chronic kidney disease (principal); I12.0 Hypertensive chronic kidney disease with stage 5 chronic kidney disease or end stage renal disease; N18.6 End stage renal disease; Z99.2 Dependence on renal dialysis; Z79.84 Long term (current) use of oral hypoglycemic drugs; E78.5 Hyperlipidemia, unspecified; E03.9 Hypothyroidism, unspecified; Z72.0 Tobacco use
CPT/HCPCS: J0690; J1644; J2250; J3010

== ENCOUNTER → 2018-12-08 08:51 | Day surgery (SDC) | payer MEDICARE, MEDICAID ==
--- NOTE | 2018-12-07 16:24 | HP ---
HISTORY AND PHYSICAL: DATE OF ADMISSION: 12/08/18. CHIEF COMPLAINT: Malfunctioning left arteriovenous fistula. HISTORY OF PRESENT ILLNESS: The patient is a 58-year-old male with end-stage renal disease who has been undergoing hemodialysis via a left radiocephalic fistula that started to malfunction last week. In his last dialysis attempt, he could not be dialyzed because of clots going into the system from the arteriovenous fistula. For this reason, the patient is being admitted for fistulogram, possible angioplasty. PAST MEDICAL HISTORY: The patient's past medical history is remarkable for end - stage renal disease, history of hepatitis C, hypertension, diabetes, hypothyroidism, history of tobacco abuse. CURRENT MEDICATIONS: Include: 1. Acetaminophen/codeine No. 3 one tablet every 4 hours as needed. 2. Aspirin 81 mg p.o. daily. 3. Carvedilol 12.5 mg p.o. b.i.d. 4. Hydralazine 50 mg 1 tablet p.o. every 8 hours. 5. Insulin glargine 100 units/mL, 10 units subcu single dose. 6. Levothyroxine 50 mcg p.o. daily. 7. Loperamide 2 mg p.o. p.r.n. 4 times a day. 8. Ondansetron 4 mg p.o. b.i.d. 9. Simvastatin 20 mg p.o. daily. 10. Trazodone 50 mg p.o. q.h.s. ALLERGIES: The patient has no known allergies. FAMILY HISTORY: Remarkable for a history of diabetes and hypertension in both father and mother. SOCIAL HISTORY: The patient is a smoker and has consumed alcohol in the past. REVIEW OF SYSTEMS: His review of systems is contributory for weight loss, weakness, leg swelling, and recently underwent right foot toe excision. He has an open wound with a wound VAC for wound care. The review of systems in the eye system reveals that the patient wears glasses, has blurred vision as well. PHYSICAL EXAMINATION GENERAL: The patient is alert and oriented. He has deteriorated since the last time he was here. He is not in a wheelchair, is in assisted care. VITAL SIGNS: His weight is 129 pounds and height 70 inches. Blood pressure is 156/92. BMI of 18.5. Pulse of 59, respirations of 18. HEAD AND NECK: Reveals no neck nodes or masses. LUNGS: Clear to auscultation bilaterally. HEART: Regular without murmurs. EXTREMITIES: Right lower extremity is unremarkable. Left lower extremity, the patient has an arteriovenous fistula that the arteriovenous anastomosis is open and just distal to it approximately 5 cm, there is decreased thrill in this area with areas of possible either stenosis or thrombosis and the distal thrill forms again towards the antecubital fossa. He has excellent radial pulses and has an excellent ulnar pulse. He has good capillary refill of both upper extremities. Lower extremity, the patient had a recent amputation of the toes and the open wound is covered with a wound VAC. This was not assessed. The patient has peripheral vascular disease with decreased pulses at the femoral, popliteal, and dorsalis pedis. DIAGNOSTIC IMPRESSION: Malfunctioning left radiocephalic fistula. The plan is to perform angiography with possible angioplasty. If this is not possible, we would reschedule the patient for a revascularization procedure, and in the meantime, we will place a tunneled catheter for temporary hemodialysis. I discussed this at length with the patient. The patient understands, agrees, and wishes to proceed with the surgery. [id number]/CPS #: [id number] GABBY
[~2018-12-08 08:51] MED LIST: Buffered Lidocaine 1% SYRIN* 1 ML/SYRINGE INTRADERM ONE; Carvedilol TAB* 3.125 MG PO ONE; EPHEDrine (Pressors)* 50 MG/ML VIAL ONE; Famotidine IV* 10 MG/ML 2 ML (20 mg) IV ONE; Famotidine IV* 10 MG/ML 2 ML (20 mg) ONE; Heparin 2 UNITS/ML IVPREMIX* 1,000 ML IV ONE; Heparin DIALYSIS ONLY(*) 1,000 UNITS/ML VIAL ONE; Heparin VIAL(*) 5000 UNITS/ML VIAL (FIVE THOUSAND) ONE; Iohexol 180 (CONTRAST) 10 ML SDV IV ONE; KETAMINE HCL* 50 MG/ML 10 ML VIAL ONE; Lidocaine 1% INJ* 10 MG/ML 30 ML SDV ONE; Lidocaine 2% PF * 5 ML VIAL ONE; Midazolam* 1 MG/ML 10 ML VIAL (10 MG) ONE; Midazolam* 1 MG/ML 2 ML VIAL (2 MG) ONE; NS 0.45% 1000 ML BAG* 1,000 ML IV SCH; Ondansetron INJ* 2 MG/ML VIAL ONE; Propofol* 10 MG/ML 20 ML BTL ONE; ceFAZolin 2 GM in NS PREMIX(*) 2 GM/100 ML BAG IVPB ONE; fentaNYL* 50 MCG/ML 2 ML VIAL (100 MCG VIAL) ONE
--- NOTE | 2018-12-08 14:39 | OP ---
CC: Dr. Olsen * DATE OF OPERATION: 12/08/18 - [facility] DATE OF : 58 SURGEON: Tyrese Goodman MD PRE-OP DIAGNOSIS: Occluded left radiocephalic arteriovenous fistula. POST-OP DIAGNOSIS: Occluded left radiocephalic arteriovenous fistula. OPERATIVE PROCEDURE: 1. Angiogram of radiocephalic fistula. 2. Percutaneous balloon angioplasty without successful reopening of the fistula. 3. Placement of right internal jugular tunneled dialysis catheter. FINDINGS: Complete occlusion of the radiocephalic fistula in the mid forearm with preferential flow into collateral circulation with severe neointimal hyperplasia. DESCRIPTION OF PROCEDURE: The patient was taken to the operating room. He was placed in the supine position. Exposure of the left arm was done. He was prepped and draped in the usual sterile fashion. Proper identification of patient and site of surgery was done, and under sedation, after the patient had received antibiotics, appropriate time-out was performed, and we then proceeded to infiltrate lidocaine 1% at the level just distal to the arteriovenous anastomosis on the left wrist. Access was done with a micropuncture and a small wire was advanced, which we then proceeded to use to advance the 4-Malaysian catheter over the wire, and after this, we then proceeded to advance a 0.035 Glidewire via the 4- [place] catheter which was able to advance up to the antecubital fossa. An angiogram was then performed after introducing a 6- [place] sheath over the wire via the site port. The angiogram revealed complete occlusion of the cephalic vein for a segment of at least 12 to 15 cm, refilling the distal cephalic vein and more proximal cephalic vein via collateral circulation. However, the wire was able to cross the occlusion and we then proceeded to give the patient 2000 units of heparin. We started with a 4 mm, 8 cm long balloon angioplasty catheter and we started to angioplasty from distal to proximal and this appeared to work well with complete formation of the balloon; however, no areas of significant stenoses were noted. Once this was completed, an angiogram was performed and again it appeared to flow into the vein, but there was clotting material and the new intimal hyperplasia would recoil back. We then proceeded to switch to a 6 mm balloon, 4 cm long [place] angioplasty catheter and again proceeded to insufflate the balloon up to 10 atmospheres without any problems, and once again the lesion would recoil back, shot after the angioplasty. We then proceeded to advance the [place] 7 mm, 10 cm long balloon angioplasty catheter and the same thing was repeated. The angiogram revealed flow into the vein, but preferential flow into collateral circulation. It was felt that what was necessary was a stent, however, in this location superficial to the skin. The cover stent is not indicated for puncture ; therefore, it was deemed that the fistula was not usable anymore and this was the end of it. The patient will require to return to the operating room for creation of new arteriovenous fistula, likely a upper brachiocephalic. At this point, we then proceeded to perform a pursestring suture around the 6-Malaysian catheter. This was pulled back and pressure was applied. There was pulse in the radiocephalic fistula, but there was not thrill, which was felt that this was not useful anymore. A small Band-Aid was applied to the access point. There were no extravasations during the angioplasty and there were no hematomas at the end of the procedure. After this was done, the patient was then positioned to perform a right internal jugular placement of a tunneled dialysis catheter. The patient was then prepped and draped in the usual sterile fashion , exposing the right side of the chest and the right side of the neck. Under ultrasound guidance, lidocaine 1% was used to infiltrate at the base of the neck. We then proceeded to use a micropuncture kit to access the internal jugular and the 0.018 wire, which went easily into the internal jugular and superior vena cava. After this was done, we then proceeded to exchange the 0.018 wire for an 0.035 wire in the kit, and after this was completed, we then proceeded to infiltrate lidocaine from the neck incision to the chest in order to create a tunnel. Once the selected area for access was done in the area of the chest, we then proceeded to tunnel the dialysis catheter in an antegrade fashion from the chest under the skin up to the neck incision. After this was in place, we then proceeded to use the dilators to dilate the tract of the internal jugular over the wire under direct fluoroscopic guidance. After the dilators were finished, we then proceeded to introduce the sheath introducer over the wire, and after this, we then proceeded to remove the introducer and the wire and proceeded to introduce the dialysis catheter into the sheath. This was then pushed down as we proceeded to split the sheath and the tip of the catheter was in the superior vena cava right atrial junction. Excellent inflow and backflow was noted from the site ports and then we proceeded to inject the ports with heparin using 2.5 cc per port of pure heparin in this area and lock him in place and put the hubs in place. After this was completed, a final picture of the tip of the catheter was done. We then proceeded to anchor the catheter at the entrance with 4-0 Prolene suture and at the butterflies in the bifurcation with 4-0 Prolene suture. The small incision at the neck was also closed with interrupted 4-0 Prolene suture. Dressing was applied to the area. The patient tolerated the procedure well and he was taken in good condition to the recovery room. [id number]/CPS #: [id number] [id number]
[2018-12-08 16:10] VITALS: BP 107/64
== END | disposition home or self-care (01) ==
LOC: OR 08:51 → EDBD 10:30
PROVIDERS: ATTEND Surgery
DX: T82.868A Thrombosis due to vascular prosthetic devices, implants and grafts, initial encounter (principal); N18.6 End stage renal disease; Z99.2 Dependence on renal dialysis; Z79.899 Other long term (current) drug therapy; E11.21 Type 2 diabetes mellitus with diabetic nephropathy; E11.22 Type 2 diabetes mellitus with diabetic chronic kidney disease; Z79.4 Long term (current) use of insulin; I12.9 Hypertensive chronic kidney disease with stage 1 through stage 4 chronic kidney disease, or unspecified chronic kidney disease; B19.20 Unspecified viral hepatitis C without hepatic coma; E03.9 Hypothyroidism, unspecified; Z72.0 Tobacco use; D64.9 Anemia, unspecified
CPT/HCPCS: 36415; 71045; 76000; 83880; A9270-GY; C1750; J0690; J1644; J2250; J2405; J2704; J3010

== ENCOUNTER 2018-12-09 06:35 | Emergency (ER) | payer MEDICARE, MEDICAID ==
--- NOTE | 2018-12-09 07:26 | ED ---
Complex/Multi-Sys Presentation - HPI Summary HPI Summary: 58 year old male presents with bleeding from dialysis catheter today. He had surgery done by dr gunter yesterday for placement. he does not believe there was any bleeding right after the surgery. nurse woke him up for his meds and noticed dressing was full of blood. not on any blood thinners. has dialysis today. denies any other symptoms. - History Of Current Complaint Chief Complaint: EDGeneral Time Seen by Provider: 12/09/18 06:51 - Allergies/Home Medications Allergies/Adverse Reactions: Allergies Allergy/AdvReac Type Severity Reaction Status Date / Time No Known Allergies Allergy Verified 12/09/18 06:39 Home Medications: Home Medications Ondansetron [Ondansetron Odt] 4 mg PO BID PRN 12/09/18 [History Confirmed ] Sennosides [Senna] 2 tab PO DAILY 12/09/18 [History Confirmed 12/09/18] oxyCODONE TAB* 10 mg PO SEE INSTRUCTIONS PRN 12/09/18 [History Confirmed ] PMH/Surg Hx/FS Hx/Imm Hx Endocrine/Hematology History: Reports: Hx Diabetes - DIET & INSULIN (PT OFTEN REFUSES THE INSULIN, Hx Thyroid Disease - hypo, ON DAILY MED, Hx Anemia - ON FERROUS SULFATE DAILY Cardiovascular History: Reports: Hx Angina, Hx Hypercholesterolemia, Hx Hypertension - HYDRALAZINE 50 MG Q8H COREG 12.5 MG BID Denies: Hx Congestive Heart Failure, Hx Myocardial Infarction History: Reports: Hx Dialysis, Hx Renal Disease - Surgical History Hx Anesthesia Reactions: No Infectious Disease History: No Infectious Disease History: Reports: Hx Hepatitis - C, Hx Tuberculosis - latent Denies: Traveled Outside the [place] in Last 30 Days - Family History Known Family History: Positive: Diabetes Negative: Cardiac Disease - Social History Alcohol Use: None Alcohol Amount: Former alcohol use Hx Substance Use: No Substance Use Type: Reports: None Hx Tobacco Use: No Smoking Status (MU): Former Smoker Type: Cigarettes Amount Used/How Often: 1/2 CIGARETTE MAYBE ONCE A DAY Have You Smoked in the Last Year: Yes Review of Systems Negative: Fever Negative: Chest Pain Negative: Shortness Of Breath Positive: Other - bleeding from diaylsis port right side chest All Other Systems Reviewed And Are Negative: Yes Physical Exam Triage Information Reviewed: Yes Vital Signs On Initial Exam: Initial Vitals Temp Pulse Resp BP Pulse Ox 97.4 F 69 17 85/57 99 12/09/18 06:36 12/09/18 06:36 12/09/18 06:36 12/09/18 06:36 12/09/18 06:36 Vital Signs Reviewed: Yes Appearance: Positive: Well-Appearing Skin: Positive: Warm, Dry, Other - sutures in place on right side of neck with minimial oozing, catheter in place on right side of chest wall with minimial oozing Eyes: Positive: Normal ENT: Positive: Pharynx normal Respiratory/Lung Sounds: Positive: Clear to Auscultation, Breath Sounds Present Cardiovascular: Positive: Normal, RRR Musculoskeletal: Positive: Normal Neurological: Positive: Normal Psychiatric: Positive: Normal Diagnostics - Vital Signs Vital Signs Temp Pulse Resp BP Pulse Ox 12/09/18 06:36 97.4 F 69 17 85/57 99 - Laboratory Result Diagrams: 12/09/18 07:31 Lab Statement: Any lab studies that have been ordered have been reviewed, and results considered in the medical decision making process. - Radiology chest Radiology Interpretation Completed By: Radiologist Summary of Radiographic Findings: IMPRESSION: CENTRAL LINE IS IN PLACE. NO PNEUMOTHORAX IS NOTED. LUNGS ARE CLEAR. Complex Multi-Symp Course/Dx Course Of Treatment: 58 year old male presents with bleeding from dialysis catheter today. He had surgery done by dr gunter yesterday for placement. he does not believe there was any bleeding right after the surgery. nurse woke him up for his meds and noticed dressing was full of blood. not on any blood thinners. has dialysis today. denies any other symptoms. on exam has suture in place on neck that is oozing. has catheter in place with bleeding on the side. applied pressure dressing and bleeding continued. discussed case with dr gunter who will see in ED. dr gunter placed sutures in two incisions. patient will be discharge to dialysis. - Diagnoses Differential Diagnoses/HQI/PQRI: Other - hematoma, bleeding, tube displacement Provider Diagnoses: Bleeding due to dialysis catheter placement Discharge - Sign-Out/Discharge Documenting (check all that apply): Patient Departure Patient Received Moderate/Deep Sedation with Procedure: No - Discharge Plan Condition: Good Disposition: HOME Referrals: Charles Lemus MD [Primary Care Provider] - Additional Instructions: follow up with dialysis follow up with dr gunter Return to ED if develop any new or worsening symptoms - Billing Disposition and Condition Condition: GOOD Disposition: Home
[2018-12-09] MEDS ORDERED: Lidocaine 1% MPF ** 5 ML VIAL INJ ONE (08:22)
[2018-12-09] MEDS ORDERED: Lidocaine 2% EPI 1:200000 MPF* 10 ML VIAL INJ ONE (08:22)
[2018-12-09 08:30] LABS: ABS Eosinophils 0.1 10^3/ul (0-0.6); ABS Lymphocytes 1.9 10^3/ul (1.0-4.8); ABS Monocytes 0.9 10^3/ul (0-0.8); ABS Neutrophils 7.2 10^3/ul (1.5-7.7); Eosinophil % 0.6 %; Hematocrit 41 % (42-52); Hemoglobin 13.5 g/dL (14.0-18.0); Lymphocyte % 18.7 %; Mean Corpuscular HGB Conc 33 g/dL (31-36); Mean Corpuscular Hemoglobin 31 pg (27-31); Mean Corpuscular Volume 93 fL (80-94); Mean Platelet Volume 8.2 fL (7.4-10.4); Nucleated Red Blood Cells % 0.2; Platelet Count 192 10^3/uL (150-450); Red Blood Count 4.38 10^6 /uL (4.18-5.48); Red Cell Distribution Width 15 % (10-15); White Blood Count 10.1 10^3/uL (3.5-10.8)
[2018-12-09 08:38] LABS: Activated Partial Thrombo Time 51.3 seconds (26.0-38.0); INR 1.1 (0.82-1.09)
--- NOTE | 2018-12-09 10:28 | CONS ---
CONSULTATION AND PROCEDURE NOTE: DATE OF CONSULT: 12/09/18 REASON FOR CONSULT: Bleeding at the site of dialysis tunneled catheter. HISTORY OF PRESENT ILLNESS: The patient is a 58-year-old male with end-stage renal disease, undergoi ng hemodialysis via a left radiocephalic fistula that was occluded and underwent balloon angioplasty yesterday; however, there is significant scar tissue that the fistula is deemed not usable anymore an d for this reason, a tunneled dialysis catheter was placed yesterday on the right internal jugular. The patient came into the emergency room with a slow oozing at the site of the entrance point on the right side of the chest and after applying pressure it did not stop, for this reason I was called in to see the patient. The oozing happens to be at the edge of the skin. There is no blood in the tunn el. There is no hematoma and one can see oozing right at the edge of the skin on the posterior part of the entrance of the catheter on the upper side of the chest. A decision was made to proceed to pl katy a pursestring suture around it under sterile conditions. PROCEDURE: The patient after proper identification and site of surgery and proper time out, the area was prepped and draped with Betadine. We then proceeded to infiltrate lidocaine 1% with epinephrine in the area. After this was done using a 4-0 Prolene suture, a pursestring around the entrance of t he catheter was done and this stopped the oozing immediately. A sterile dressing was applied to the area and the patient tolerated the procedure well and he was discharged to the dialysis unit for hemo dialysis. In terms of the site of angioplasty on the left AV fistula, there is a pulse in the graft but no thrill. Again, the fistula is severely stenotic and not amenable for future use. [id number]/[facility] #: [id number]
[2018-12-09 10:42] VITALS: BP 132/71
== END 2018-12-09 10:42 | disposition home or self-care (01) ==
LOC: ED 06:35
DX: T82.838A Hemorrhage due to vascular prosthetic devices, implants and grafts, initial encounter (principal); E11.22 Type 2 diabetes mellitus with diabetic chronic kidney disease; I12.0 Hypertensive chronic kidney disease with stage 5 chronic kidney disease or end stage renal disease; N18.6 End stage renal disease; E03.9 Hypothyroidism, unspecified; D63.1 Anemia in chronic kidney disease; E78.00 Pure hypercholesterolemia, unspecified; Z99.2 Dependence on renal dialysis; Z79.4 Long term (current) use of insulin; Z79.899 Other long term (current) drug therapy; Z87.891 Personal history of nicotine dependence
CPT/HCPCS: 36415; 71045; 85025; 85610; 85730; 86850; 86900; 86901; 99283

== ENCOUNTER 2019-01-15 07:11 | Emergency (ER) | payer MEDICARE, MEDICAID ==
--- OUTSIDE RECORDS SUMMARY | 2019-01-15 07:29 | XMS REPORT | Continuity of Care Document ---
:1960 External Reference #:[id number] Author Name Tyrese Goodman (transmitted by agent of provider Melodie Murillo) Address [address] [place] [address] Care Team Providers Name Role Phone Asim Olsen M.D. - Nephrology Care Team Information Salesforce Consultant Charles Lemus MD - Family Care Team Information Salesforce Consultant Medicine Problems Active Problems Provider Date End-stage renal disease Tyrese Goodman Onset: 06/04/2018 End stage renal failure on dialysis Tyrese Goodman Onset: 06/04/2018 Body mass index 20-24 - normal Tyrese Goodman Onset: 06/04/2018 Social History Type Date Description Comments Sex Unknown ETOH Use Has consumed alcohol in the past Recreational Drug Use Previous Marijuana Use Tobacco Use Start: Unknown Light tobacco smoker (10 or fewer cigarettes/day) Smoking Status Reviewed: 07/20/18 Light tobacco smoker (10 or fewer cigarettes/day) Allergies, Adverse Reactions, Alerts Description No Known Drug Allergies Medications Active Medications SIG Qnty Indications Ordering Provider Date Trazodone HCL PO QHS Unknown 50mg Tablets Levothyroxine Sodium PO qd Unknown 50mcg Tablets Aspirin 81 1 by mouth every Unknown 81mg Tablets DR day Carvedilol po bid Unknown 12.5mg Tablets Hydralazine HCL 1 tab po q 8 hrs Unknown 50mg Tablets Simvastatin po qd Unknown 20mg Tablets Epogen dialysis inject Unknown 61475Sxec/ML Solution KP Ferrous Sulfate po qd Unknown 325(65Fe) mg Tablets Humalog Kwikpen as directed Unknown 100Unit/ML Solution Pen-Inject Lantus as directed Unknown 100Unit/ML Solution Oxycodone HCL po prn Unknown 10mg Tablets Senna Plus po prn Unknown 8.6-50mg Tablets Immunizations CPT Code Status Date Vaccine Lot # [id number] Given 01/25/2018 Influenza Vaccine 26425-773-81 Vital Signs Date Vital Result Comment 12/22/2018 1:56pm Height 70 inches 5'10" Weight 139.00 lb BP Systolic 159 mmHg BP Diastolic 91 mmHg BMI (Body Mass Index) 19.9 kg/m2 Heart Rate 57 /min Respiratory Rate 18 /min Pain Level 0 12/13/2018 3:42pm Height 70 inches 5'10" Weight 129.00 lb BP Systolic 112 mmHg BP Diastolic 71 mmHg BMI (Body Mass Index) 18.5 kg/m2 Heart Rate 65 /min Respiratory Rate 18 /min Pain Level 0 out of 10 Results Test Date Facility Test Result H/L Range Note Laboratory test 12/17/2018 [facility]) Point of Care 264 mg /dL High 70-[address] [place], [place] [address] [phone] Laboratory test 12/08/2018 [facility]) Point of Care 120 mg /dL High 70-100 [address] [place], [place] [address] [phone] Laboratory test 12/08/2018 [facility]) Point of Care 164 mg /dL High 70-100 [address] [place] [address] [phone] Laboratory test 12/08/2018 [facility]) B Type 73 pg/mL < =[address] [place] [address] Peptide [phone] Whipped Topping Supervisor: [id number] 2 Whipped Topping Supervisor: [id number] 3 Whipped Topping Supervisor: [id number] Procedures Date Code Description Status 12/17/2018 58320 Revise Arteriovenous Fistula Completed 12/08/2018 24267 Dialysis Circuit W/ Transluminal Balloon Angioplasty, Completed Peripheral 12/08/2018 49010 Insertion Tunneled Cent Venous Cathr W/O Subcut Port/Pump Completed 5Yrs> Medical Devices Description No Information Available Encounters Description No Information Available Assessments Date Code Description Provider 12/31/2018 E11.22 Type 2 diabetes mellitus with diabetic chronic Goodman, Tyrese kidney disease 12/22/2018 Z68.1 Body mass index (BMI) 19.9 or less, adult Goodman, Tyrese 12/17/2018 T82.510A Breakdown (mechanical) of surgically created Ogodman, Tyrese arteriovenous fistula, initial encounter 12/17/2018 E11.22 Type 2 diabetes mellitus with diabetic chronic Goodman, Tyrese kidney disease 12/17/2018 I12.0 Hypertensive chronic kidney disease with stage Goodman, Tyrese 5 chronic kidney disease or end stage renal disease 12/17/2018 N18.6 End stage renal disease Goodman, Tyrese 12/17/2018 Z99.2 Dependence on renal dialysis Goodman, Tyrese 12/13/2018 T82.858A Stenosis of other vascular prosthetic devices, Goodman, Tyrese implants and grafts, initial encounter 12/13/2018 E11.22 Type 2 diabetes mellitus with diabetic chronic Goodman, Tyrese kidney diseas 12/13/2018 I12.0 Hypertensive chronic kidney disease with stage Goodman, Tyrese 5 chronic kid 12/13/2018 N18.6 End stage renal disease Goodman, Tyrese 12/13/2018 Z99.2 Dependence on renal dialysis Goodman, Tyrese 12/13/2018 Z68.1 Body mass index (BMI) 19.9 or less, adult Goodman, Tyrese 12/08/2018 T82.858A Stenosis of other vascular prosthetic devices, Goodman, Tyrese implants and grafts, initial encounter 12/08/2018 E11.22 Type 2 diabetes mellitus with diabetic chronic Goodman, Tyrese kidney diseas 12/08/2018 I12.0 Hypertensive chronic kidney disease with stage Goodman, Tyrese 5 chronic kid 12/08/2018 N18.6 End stage renal disease Goodman, Tyrese 12/08/2018 Z99.2 Dependence on renal dialysis Goodman, Tyrese 12/07/2018 E11.22 Type 2 diabetes mellitus with diabetic chronic Goodman, Tyrese kidney diseas 12/07/2018 I12.0 Hypertensive chronic kidney disease with stage Goodman, Tyrese 5 chronic kid 12/07/2018 N18.6 End stage renal disease Goodman, Tyrese 12/07/2018 Z99.2 Dependence on renal dialysis Goodman, Tyrese 12/07/2018 Z01.818 Encounter for other preprocedural examination Goodman, Tyrese 12/07/2018 Z68.1 Body mass index (BMI) 19.9 or less, adult Goodman, Tyrese 07/08/2018 E11.22 Type 2 diabetes mellitus with diabetic chronic GoodmanTyrese kidney diseas 07/08/2018 I12.0 Hypertensive chronic kidney disease with stage GoodmanTyrese 5 chronic kid 07/08/2018 N18.6 End stage renal disease Goodman, Tyrese 07/08/2018 Z99.2 Dependence on renal dialysis GoodmanTyrese Plan of Treatment No Information Available Functional Status Description No Information Available Mental Status Description No Information Available Referrals Description No Information Available
--- OUTSIDE RECORDS SUMMARY | 2019-01-15 07:29 | XMS REPORT | Continuity of Care Document ---
:1960 External Reference #:[id number] Author Name Rex Tyrese Address [address] [facility], [place] [address] Care Team Providers Name Role Phone Asim Olsen M.D. - Nephrology Care Team Information Pipe Blanks Cut Off Saw Operator Charles Lemus MD - Family Care Team Information Pipe Blanks Cut Off Saw Operator Medicine Problems Active Problems Provider Date End-stage [...] Unknown 20mg Tablets Epogen dialysis inject Unknown 77263Mupd/ML Solution KP Ferrous Sulfate po qd Unknown 325(65Fe) mg Tablets Humalog Kwikpen as directed Unknown 100Unit/ML Solution Pen-Inject Lantus as directed Unknown 100Unit/ML Solution Oxycodone HCL po prn Unknown 10mg Tablets Senna Plus po prn Unknown 8.6-50mg Tablets Immunizations CPT Code Status Date Vaccine Lot # [id number] Given 01/25/2018 Influenza Vaccine 12899-612-37 Vital Signs Date Vital Result Comment 12/22/2018 [...] Result H/L Range Note Laboratory test 12/17/2018 [facility]) Point of Care 264 mg /dL High 70-100 [address] [place] [address] [phone] Laboratory test 12/08/2018 [facility]) Point of Care 120 mg /dL High 70-100 [address] [place] [address] [phone] Laboratory test 12/08/2018 [facility]) Point of Care 164 mg /dL High 70-100 [address] [place] [address] [phone] Laboratory test 12/08/2018 [facility]) B Type 73 pg/mL < =[address] [place] [address] Peptide [phone] Concrete Journeyman: [id number] 2 Concrete Journeyman: [id number] Concrete Journeyman: [id number] Procedures Date Code Description Status 12/08/2018 76558 Dialysis Circuit W/ Transluminal Balloon Angioplasty, Completed Peripheral 12/08/2018 78120 Insertion Tunneled Cent Venous Cathr W/O Subcut Port/Pump Completed 5Yrs> Medical Devices Description No Information Available Encounters Description No Information Available Assessments Date Code Description Provider 12/22/2018 Z68.1 Body mass index (BMI) 19.9 or less, adult Goodman, Tyrese 12/13/2018 T82.858A Stenosis of other [...] Z01.818 Encounter for other preprocedural examination Goodman, [facility] 12/07/2018 Z68.1 Body mass index (BMI) 19.9 or less, adult Goodman, Tyrese 07/08/2018 E11.22 Type 2 diabetes mellitus with diabetic chronic Goodman, Tyrese kidney diseas 07/08/2018 I12.0 Hypertensive chronic kidney disease with stage Goodman, Tyrese 5 chronic kid 07/08/2018 N18.6 End stage renal disease Goodman, Tyrese 07/08/2018 Z99.2 Dependence on renal dialysis Goodman, Tyrese Plan of Treatment Future Appointment(s):12/31/2018 2:00 pm - Tyrese Goodman at [facility] Functional Status Description No Information Available Mental Status Description No Information Available Referrals Description No Information Available
--- OUTSIDE RECORDS SUMMARY | 2019-01-15 07:29 | XMS REPORT | Continuity of Care Document ---
:1960 External Reference #:[id number] Author Name Rex Tyrese Address [address] [facility], [place] [address] Care Team Providers Name Role Phone Asim Olsen M.D. - Nephrology Care Team Information Nurses' Association Counselor [phone] Charles Lemus MD - Family Care Team Information Nurses' Association Counselor Medicine Problems Active Problems Provider Date End-stage [...] Unknown 20mg Tablets Epogen dialysis inject Unknown 19696Ujnn/ML Solution KP Ferrous Sulfate po qd Unknown 325(65Fe) mg Tablets Humalog Kwikpen as directed Unknown 100Unit/ML Solution Pen-Inject Lantus as directed Unknown 100Unit/ML Solution Oxycodone HCL po prn Unknown 10mg Tablets Senna Plus po prn Unknown 8.6-50mg Tablets Immunizations CPT Code Status Date Vaccine Lot # 24428 Given 01/25/2018 Influenza Vaccine [id number] Vital Signs Date Vital Result Comment 12/22/2018 [...] Result H/L Range Note Laboratory test 12/17/2018 [facility]) Point of Care 264 mg /dL High 70-100 [address] [place] [address] [phone] Laboratory test 12/08/2018 [facility]) Point of Care 120 mg /dL High 70-100 [address] [place] [address] [phone] Laboratory test 12/08/2018 [facility]) Point of Care 164 mg /dL High 70-100 [address] [place] [address] [phone] Laboratory test 12/08/2018 [facility]) B Type 73 pg/mL < =[address] [place] [address] Peptide [phone] Bed Setter: [id number] 2 Bed Setter: [id number] 3 Bed Setter: [id number] Procedures Date Code Description Status 12/17/2018 09239 Revise Arteriovenous Fistula Completed 12/08/2018 01566 Dialysis Circuit W/ Transluminal Balloon Angioplasty, Completed Peripheral 12/08/2018 86054 Insertion Tunneled Cent Venous Cathr W/O Subcut Port/Pump Completed 5Yrs> Medical Devices Description No Information Available Encounters Description No Information Available Assessments Date Code Description Provider 12/22/2018 Z68.1 Body mass index (BMI) 19.9 or less, adult Goodman, Tyrese 12/17/2018 T82.510A Breakdown (mechanical) of surgically created Goodman, Tyrese arteriovenous fistula, initial encounter 12/17/2018 E11.22 [...] 12/07/2018 Z01.818 Encounter for other preprocedural examination Rex Tyrese 12/07/2018 Z68.1 Body mass index (BMI) 19.9 or less, adult RexTyrese 07/08/2018 E11.22 Type 2 diabetes mellitus with diabetic chronic Tyrese Goodman kidney diseas 07/08/2018 I12.0 Hypertensive chronic kidney disease with stage Tyrese Goodman 5 chronic kid 07/08/2018 N18.6 End stage renal disease GoodmanTyrese 07/08/2018 Z99.2 Dependence on renal dialysis Tyrese Goodman Plan of Treatment Future Appointment(s):12/31/2018 2:00 pm - Tyrese Goodman at [facility] Functional Status Description No Information Available Mental Status Description No Information Available Referrals Description No Information Available
--- OUTSIDE RECORDS SUMMARY | 2019-01-15 07:29 | XMS REPORT | Continuity of Care Document ---
:1960 External Reference #:[id number] Author Name Tyrese Goodman (transmitted by agent of provider Kiersten Baker) Address [address] [facility] [place] [address] Care Team Providers Name Role Phone Asim Olsen M.D. - Nephrology Care Team Information Boulevard Glassware Replacer Charles Lemus MD - Family Care Team Information Boulevard Glassware Replacer Medicine Problems Active Problems Provider Date End-stage [...] Unknown 20mg Tablets Epogen dialysis inject Unknown 92713Uhpf/ML Solution KP Ferrous Sulfate po qd Unknown 325(65Fe) mg Tablets Humalog Kwikpen as directed Unknown 100Unit/ML Solution Pen-Inject Lantus as directed Unknown 100Unit/ML Solution Oxycodone HCL po prn Unknown 10mg Tablets Senna Plus po prn Unknown 8.6-50mg Tablets Immunizations CPT Code Status Date Vaccine Lot # 63286 Given 01/25/2018 Influenza Vaccine [id number] Vital Signs Date Vital Result Comment 01/14/2019 12:01pm Height 70 inches 5'10" Weight 127.00 lb BP Systolic 88 mmHg BP Diastolic 41 mmHg BMI (Body Mass Index) 18.2 kg/m2 Heart Rate 65 /min Respiratory Rate 16 /min 12/22/2018 1:56pm Height 70 inches 5'10" Weight 139.00 lb BP Systolic 159 mmHg BP Diastolic 91 mmHg BMI (Body Mass Index) 19.9 kg/m2 Heart Rate 57 /min Respiratory Rate 18 /min Pain Level 0 Results Test Date Facility Test Result H/L Range Note Laboratory test 12/17/2018 [facility]) Point of Care 264 mg /dL High 70-100 [address] [place], [place] [address] [phone] Laboratory test 12/08/2018 [facility]) Point of Care 120 mg /dL High 70-100 [address] [place] [address] [phone] Laboratory test 12/08/2018 [facility]) Point of Care 164 mg /dL High 70-100 [address] [place] [address] [phone] Laboratory test 12/08/2018 [facility]) B Type 73 pg/mL < =[address] [place] [address] Peptide [phone] E Business Project Manager: [id number] 2 E Business Project Manager: [id number] 3 E Business Project Manager: [id number] Procedures Date Code Description Status 12/17/2018 82151 Revise Arteriovenous Fistula Completed 12/08/2018 77256 Dialysis Circuit W/ Transluminal Balloon Angioplasty, Completed Peripheral 12/08/2018 24952 Insertion Tunneled Cent Venous Cathr W/O Subcut Port/Pump Completed 5Yrs> Medical Devices Description No Information Available Encounters Description No Information Available Assessments Date Code Description Provider 01/14/2019 Z68.1 Body mass index (BMI) 19.9 or less, adult Goodman, Tyrese 12/31/2018 E11.22 Type 2 diabetes mellitus with diabetic chronic Goodman, Tyrese kidney disease 12/31/2018 I12.0 Hypertensive chronic kidney disease with stage Goodman, Tyrese 5 chronic kidney disease or end stage renal disease 12/31/2018 N18.6 End stage renal disease Goodman, Tyrese 12/31/2018 Z99.2 Dependence on renal dialysis Goodman, Tyrese 12/31/2018 T82.510D Breakdown (mechanical) of surgically created Goodman, Tyrese arteriovenous fistula, subsequent encounter 12/22/2018 I12.0 Hypertensive chronic kidney disease with stage Goodman, Tyrese 5 chronic kidney disease or end stage renal disease 12/22/2018 E11.22 Type 2 diabetes mellitus with diabetic chronic Goodman, Tyrese kidney disease 12/22/2018 N18.6 End stage renal disease Goodman, Tyrese 12/22/2018 Z99.2 Dependence on renal dialysis Goodman, Tyrese 12/22/2018 Z68.1 Body mass index (BMI) 19.9 [...] T82.858A Stenosis of other vascular prosthetic devices, GoodmanTyrese implants and grafts, initial encounter 12/13/2018 E11.22 [...] T82.858A Stenosis of other vascular prosthetic devices, Tyrese Goodman implants and grafts, initial encounter 12/08/2018 E11.22 [...] mass index (BMI) 19.9 or less, adult Tyrese Goodman Plan of Treatment Future Appointment(s):01/19/2019 1:00 pm - Tyrese Goodman at [facility] Functional Status Description No Information Available Mental Status Description No Information Available Referrals Description No Information Available
--- OUTSIDE RECORDS SUMMARY | 2019-01-15 07:29 | XMS REPORT | Continuity of Care Document ---
:1960 External Reference #:[id number] Author Name Rex Tyrese Address [address] [facility], [place] [address] Care Team Providers Name Role Phone Asim Olsen M.D. - Nephrology Care Team Information Culinary Manager Charles Lemus MD - Family Care Team Information Culinary Manager [phone] Medicine Problems Active Problems Provider Date End-stage [...] Unknown 20mg Tablets Epogen dialysis inject Unknown 37902Jipx/ML Solution KP Ferrous Sulfate po qd Unknown 325(65Fe) mg Tablets Humalog Kwikpen as directed Unknown 100Unit/ML Solution Pen-Inject Lantus as directed Unknown 100Unit/ML Solution Oxycodone HCL po prn Unknown 10mg Tablets Senna Plus po prn Unknown 8.6-50mg Tablets Immunizations CPT Code Status Date Vaccine Lot # [id number] Given 01/25/2018 Influenza Vaccine 17672-104-95 Vital Signs Date Vital Result Comment 12/22/2018 [...] Result H/L Range Note Laboratory test 12/17/2018 [facility]) Point of Care 264 mg /dL High 70-100 [address] [place] [address] [phone] Laboratory test 12/08/2018 [facility]) Point of Care 120 mg /dL High 70-100 [address] [place] [address] [phone] Laboratory test 12/08/2018 [facility]) Point of Care 164 mg /dL High 70-100 [address] [place] [address] [phone] Laboratory test 12/08/2018 [facility]) B Type 73 pg/mL < =[address] [place] [address] Peptide [phone] Brake Lining Finisher Asbestos: [id number] 2 Brake Lining Finisher Asbestos: [id number] Brake Lining Finisher Asbestos: [id number] Procedures Date Code Description Status 12/17/2018 40080 Revise Arteriovenous Fistula Completed 12/08/2018 56386 Dialysis Circuit W/ Transluminal Balloon Angioplasty, Completed Peripheral 12/08/2018 01072 Insertion Tunneled Cent Venous Cathr W/O Subcut [...] Type 2 diabetes mellitus with diabetic chronic GoodmanLuis Armandomo kidney diseas 07/08/2018 I12.0 Hypertensive chronic kidney disease with stage GoodmanLuis Armandomo 5 chronic kid 07/08/2018 N18.6 End stage renal disease Goodman, [facility] 07/08/2018 Z99.2 Dependence on renal dialysis GoodmanTyrese Plan of Treatment No Information Available Functional Status Description No Information Available Mental Status Description No Information Available Referrals Description No Information Available
[2019-01-15] MEDS ORDERED: NS 0.9% 1000 ML** 1,000 ML IV.FLUID IV ONE (07:31)
--- NOTE | 2019-01-15 07:32 | ED ---
Complex/Multi-Sys Presentation - HPI Summary HPI Summary: Pt. is a 59 y.o male who presents to the ER from dialysis for low blood sugar and hypotension. Pt. with a hx of DM. Pt. states he did not take his insulin today. Pt.'s glucose was reportedly 30-40 upon arrival to dialysis. Pt. was given oral glucose and a power bar. In the ER pt. states he is feeling well and feels at his baseline. Pt. denies dizziness, lightheadedness, CP, SOB, abd. pain , vomiting, or fever. He does not intermittent diarrhea. Pt. has wound vac on right foot and reportedly saw wound clinic this week and would is doing well. Sxs are moderate in severity. No current modifying factors. Pt. receives dialysis Thursday, and Thursday. - History Of Current Complaint Chief Complaint: EDGeneral Time Seen by Provider: 01/15/19 07:21 Hx Obtained From: Patient - Allergies/Home Medications Allergies/Adverse Reactions: Allergies Allergy/AdvReac Type Severity Reaction Status Date / Time No Known Allergies Allergy Verified 12/17/18 08:44 PMH/Surg Hx/FS Hx/Imm Hx Previously Healthy: Yes Endocrine/Hematology History: Reports: Hx Diabetes - DIET & INSULIN (PT OFTEN REFUSES THE INSULIN, Hx Thyroid Disease - hypo, ON DAILY MED, Hx Anemia - ON FERROUS SULFATE DAILY Cardiovascular History: Reports: Hx Angina, Hx Hypercholesterolemia, Hx Hypertension - HYDRALAZINE 50 MG Q8H COREG 12.5 MG BID, Hx Peripheral Vascular Disease Denies: Hx Congestive Heart Failure, Hx Myocardial Infarction History: Reports: Hx Dialysis, Hx Renal Disease Musculoskeletal History: Reports: Other Musculoskeletal History - wound vac right foot Sensory History: Reports: Hx Contacts or Glasses Denies: Hx Hearing Aid Opthamlomology History: Reports: Hx Contacts or Glasses - Cancer History Hx Chemotherapy: No - Surgical History Surgery Procedure, Year, and Place: 05/13/2018 PERM. CATH PLACEMENT. 08/16/2018 DEBRIDEMENT. 08/02/18 ILIAC ARTERY ANGIO. 08/12/18 THROMBOENDARTERECTOMY Hx Anesthesia Reactions: No Infectious Disease History: No Infectious Disease History: Reports: Hx Hepatitis - C, Hx Tuberculosis - latent Denies: Traveled Outside the [place] in Last 30 Days - Family History Known Family History: Positive: Diabetes, Non-Contributory Negative: Cardiac Disease - Social History Occupation: Retired Lives: With Family Alcohol Use: None Alcohol Amount: Former alcohol use Hx Substance Use: No Substance Use Type: Reports: Prescribed Substance Use Comment - Amount & Last Used: medical Hx Tobacco Use: No Smoking Status (MU): Former Smoker Type: Cigarettes Amount Used/How Often: 1/2 CIGARETTE MAYBE ONCE A DAY Have You Smoked in the Last Year: Yes Review of Systems Constitutional: Negative Negative: Fever, Chills ENT: Negative Cardiovascular: Negative Negative: Palpitations, Chest Pain Respiratory: Negative Negative: Shortness Of Breath, Cough Positive: Diarrhea. Negative: Abdominal Pain, Vomiting, Nausea Neurological: Negative All Other Systems Reviewed And Are Negative: Yes Physical Exam Triage Information Reviewed: Yes Vital Signs On Initial Exam: Initial Vitals Temp Pulse Resp BP Pulse Ox 97.2 F 70 16 85/57 98 01/15/19 07:23 01/15/19 07:23 01/15/19 07:23 01/15/19 07:23 01/15/19 07:23 Vital Signs Reviewed: Yes Appearance: Positive: Well-Appearing - Pt. sitting up in bed in NAD. Answers questions appropriately. Skin: Positive: Warm, Dry Head/Face: Positive: Normal Head/Face Inspection Eyes: Positive: Normal, EOMI Neck: Positive: Supple Respiratory/Lung Sounds: Positive: Clear to Auscultation, Breath Sounds Present Cardiovascular: Positive: Normal, RRR Abdomen Description: Positive: Nontender, Soft Musculoskeletal: Positive: Normal, Strength/ROM Intact, Other - Wound vac on right foot. Dialysis port to right upper chest wall. Neurological: Positive: Normal, Alert, Oriented to Person Place, Time, CN Intact II-III Psychiatric: Positive: Affect/Mood Appropriate Diagnostics - Vital Signs Vital Signs Temp Pulse Resp BP Pulse Ox 01/15/19 07:23 97.2 F 70 16 85/57 98 - Laboratory Result Diagrams: 01/15/19 07:39 01/15/19 07:39 Lab Statement: Any lab studies that have been ordered have been reviewed, and results considered in the medical decision making process. Complex Multi-Symp Course/Dx Course Of Treatment: Patient presenting from dialysis with a resolved episode of hypoglycemia as well as hypotension. Patient is afebrile. Blood pressure 85 /57. Patient has no complaints and feels at his baseline. Basic labs, chest x- ray and EKG ordered. ECG done at 0742 shows a sinus rhythm of 68bpm, indeterminate axis, flipped twaves in anterioral leads, no STEMI, no prior for comparison. Blood work is at patient's baseline within normal WBC. Chest x- ray negative for acute findings, reading per radiology. Patient was given a small bolus, 250ml, of normal saline and blood pressure improved to 111/65. Case discussed with Dr. Hannon. She would like BC drawn and stool cultures. She would like pt. to do a few hours of dialysis today. Pt. transferred over to dialysis. - Diagnoses Provider Diagnoses: Hypotension Discharge ED - Sign-Out/Discharge Documenting (check all that apply): Patient Departure Patient Received Moderate/Deep Sedation with Procedure: No - Discharge Plan Condition: Improved Disposition: HOME Patient Education Materials: Hypotension (ED) Referrals: Charles Lemus MD [Primary Care Provider] - Asim Olsen MD [Medical Doctor] - Additional Instructions: Please go to dialysis upon discharge from the ED Follow up with Dr. Olsen as scheduled Return to ER if symptoms change or worsen - Billing Disposition and Condition Condition: IMPROVED Disposition: Home
[2019-01-15 07:53] LABS: ABS Basophils 0.1 10^3/ul (0-0.2); ABS Eosinophils 0.1 10^3/ul (0-0.6); ABS Lymphocytes 2.1 10^3/ul (1.0-4.8); ABS Monocytes 0.9 10^3/ul (0-0.8); ABS Neutrophils 3.7 10^3/ul (1.5-7.7); Eosinophil % 1.8 %; Hematocrit 33 % (42-52); Hemoglobin 11.1 g/dL (14.0-18.0); Lymphocyte % 30.2 %; Mean Corpuscular HGB Conc 34 g/dL (31-36); Mean Corpuscular Hemoglobin 30 pg (27-31); Mean Corpuscular Volume 91 fL (80-94); Mean Platelet Volume 7.5 fL (7.4-10.4); Nucleated Red Blood Cells % 0.3; Platelet Count 232 10^3/uL (150-450); Red Blood Count 3.66 10^6 /uL (4.18-5.48); Red Cell Distribution Width 14 % (10-15); White Blood Count 6.8 10^3/uL (3.5-10.8)
[2019-01-15] MEDS ORDERED: NS 0.9% 250 ML* 250 ML IV ONE (07:55)
[2019-01-15 08:16] LABS: Albumin/Globulin Ratio 0.9 (1-3); BUN/Creatinine Ratio 7.1 (8-20); C Reactive Protein 4.82 mg/L (<8.01); Calcium 8.5 mg/dL (8.6-10.3); EGFR African American 12.8 (>60); EGFR Non-African American 10.6 (>60); Globulin 3.5 g/dL (2-4); Total Bilirubin 0.3 mg/dL (0.2-1.0); Total Protein 6.5 g/dL (6.4-8.9)
[2019-01-15 08:17] LABS: Troponin I 0.01 ng/mL (<0.04)
[2019-01-15 10:30] VITALS: BP 107/70
== END 2019-01-15 10:15 | disposition home or self-care (01) ==
LOC: ED 07:11
DX: I95.9 Hypotension, unspecified (principal); E11.22 Type 2 diabetes mellitus with diabetic chronic kidney disease; I12.0 Hypertensive chronic kidney disease with stage 5 chronic kidney disease or end stage renal disease; N18.6 End stage renal disease; E03.9 Hypothyroidism, unspecified; D63.1 Anemia in chronic kidney disease; E78.00 Pure hypercholesterolemia, unspecified; Z87.891 Personal history of nicotine dependence; Z99.2 Dependence on renal dialysis; Z79.4 Long term (current) use of insulin; Z79.899 Other long term (current) drug therapy
CPT/HCPCS: 36415; 71045; 80053; 84484; 85025; 86140; 87040; 93005; 96360; 99283

== ENCOUNTER → 2019-01-19 09:32 | Day surgery (SDC) | payer MEDICARE, MEDICAID ==
--- NOTE | 2019-01-18 13:47 | HP ---
HISTORY AND PHYSICAL: DATE OF ADMISSION: 01/19/19 CHIEF COMPLAINT: Malfunctioning left arm radiocephalic fistula. HISTORY OF PRESENT ILLNESS: The patient is a 59-year-old male with end-stage renal disease, who has been undergoing hemodialysis via left radiocephalic fistula. The fistula became very hard and fibrotic with stenosis and was not useful. For this reason, on 12/22/18, an interposition with bovine mesenteric vein was used in order to salvage the fistula, which remains patent, but because of the amount of scarring, cannulation is difficult for the dialysis team. For this reason, it was deemed that this fistula was not useful. The patient has adequate size basilic veins and he has excellent flow in both the radial and ulnar forearm arteries. For this reason, the patient is being brought in for creation of a new arteriovenous fistula from the distal forearm basilic vein to either ulnar or radial artery. The patient is currently undergoing hemodialysis via a tunneled dialysis internal jugular catheter on the right side of the neck. PAST MEDICAL HISTORY: Remarkable for type 2 diabetes, hypertension, tobacco abuse, end-stage renal disease, high cholesterol, coronary artery disease. CURRENT MEDICATIONS: Include: 1. Aspirin 81 mg daily. 2. Carvedilol 12.5 mg p.o. b.i.d. 3. Epogen 10,000 units during dialysis. 4. Humalog 100 units per mL as directed. 5. Hydrochloride 50 mg tablets 1 tab p.o. q.8 hours. 6. Ferrous sulfate 325 mg p.o. daily. 7. Lantus insulin 100 units per mL as directed. 8. Levothyroxine 50 mcg p.o. daily. 9. Oxycodone 10 mg p.o. p.r.n. 10. Senna Plus 8.6/50 mg p.o. p.r.n. 11. Simvastatin 20 mg p.o. daily. 12. Trazodone 50 mg p.o. q.h.s. p.r.n. ALLERGIES: The patient has no known allergies. FAMILY HISTORY: Remarkable for parents with hypertension. SOCIAL HISTORY: The patient lives in a group home and he is disabled. He smokes approximately a pack a day. REVIEW OF SYSTEMS: Contributory for Nephrology: End-stage renal disease. Cardiac: Coronary artery disease, peripheral vascular disease. Present diabetes and hypothyroidism. PHYSICAL EXAMINATION GENERAL: The patient is alert and oriented. He predominantly sits in a wheelchair most of the day. He has an open wound on the right foot from a diabetic foot and has a wound VAC connected to it. He does have decreased peripheral pulses and peripheral vascular disease. The patient is somewhat cachectic. He appears to be malnourished. When questioned, the patient states that he does not have good appetite and has been losing weight. VITAL SIGNS: The patient's height is 70 inches, weight 127 pounds which incidentally has had a weight loss recently of approximately 15 pounds. Blood pressure is 88/41, BMI of 18.2, pulse of 65, respiration of 16. LUNGS: Clear to auscultation bilaterally. HEART: Regular without murmurs. ABDOMEN: Soft without any organomegaly. EXTREMITIES: Upper extremity: The right upper extremity reveals no adequate veins for creation of an AV fistula. He has excellent palpable pulses at the radial, ulnar on the right side, brachial and axillary. On the left side, he has palpable axillary, brachial, and palpable radial and ulnar. He has a patent interposition graft between the radial artery and the antecubital vein. He does have a basilic vein on the left side that is present all the way from the mid forearm up to the arm area. The diameter is 3.6 mm. The cephalic vein in the upper arm is 3.7 mm. Both radial artery and ulnar artery are patent. He has an open wound covered by a wound VAC on the right foot. DIAGNOSTIC IMPRESSION AND PLAN: End-stage renal disease with not usable revised radiocephalic fistula. For this reason, the patient is being brought in for creation of a new likely basilic to ulnar or basilic to radial fistula. The patient understands that the potential complications include, but not exclusive of others, such as occlusion, bleeding, and failure to mature of the arteriovenous fistula. The patient understands, agrees and wished to proceed. [id number]/CPS #: [id number] MTDD
[~2019-01-19 09:32] MED LIST changes: +Bupivacaine 0.25% EPI 200,000* 30 ML SDV ONE; +Bupivacaine 0.25% SDV PF* 10 ML VIAL INJ ONE; -Carvedilol TAB* 3.125 MG PO ONE; -EPHEDrine (Pressors)* 50 MG/ML VIAL ONE; -Famotidine IV* 10 MG/ML 2 ML (20 mg) IV ONE; -Famotidine IV* 10 MG/ML 2 ML (20 mg) ONE; -Heparin DIALYSIS ONLY(*) 1,000 UNITS/ML VIAL ONE; -Iohexol 180 (CONTRAST) 10 ML SDV IV ONE; -KETAMINE HCL* 50 MG/ML 10 ML VIAL ONE; +Lactated Ringers 1000 ML Bag* 1,000 ML IV SCH; -Lidocaine 2% PF * 5 ML VIAL ONE; -Midazolam* 1 MG/ML 10 ML VIAL (10 MG) ONE; -Midazolam* 1 MG/ML 2 ML VIAL (2 MG) ONE; +Midazolam* 1 MG/ML 5 ML VIAL (5 MG) ONE; -NS 0.45% 1000 ML BAG* 1,000 ML IV SCH; +Naloxone* 0.4 MG/ML 1 ML VIAL IV PRN; +Ondansetron INJ* 2 MG/ML VIAL IV PRN; -Ondansetron INJ* 2 MG/ML VIAL ONE; -Propofol* 10 MG/ML 20 ML BTL ONE; +ceFAZolin 2 GM PREMIX in ORs 2 GM/50 ML BAG ONE; -ceFAZolin 2 GM in NS PREMIX(*) 2 GM/100 ML BAG IVPB ONE; +fentaNYL* 50 MCG/ML 2 ML VIAL (100 MCG VIAL) IV PRN; +oxyCODONE TAB* 5 MG TAB PO PRN
[2019-01-19 14:00] VITALS: BP 117/67
--- NOTE | 2019-01-19 21:23 | OP ---
DATE OF OPERATION: 01/19/19 - [facility] DATE OF : 58 SURGEON: Dr. Goodman HARDBOARD GRINDER: Haylee Mirza NP ANESTHESIA: Local plus MAC. PRE-OP DIAGNOSIS: End-stage renal disease. POST-OP DIAGNOSIS: End-stage renal disease. OPERATIVE PROCEDURE: Creation of left basilic ulnar arteriovenous fistula. ESTIMATED BLOOD LOSS: Less than 30 cc. INDICATIONS: The patient is a 59-year-old male with end-stage renal disease undergoing hemodialysis via tunnel catheter. The patient is brought in for creation of arteriovenous fistula. The best in-flow for the case appeared to be the ulnar artery in proximity to the left forearm basilic vein. DESCRIPTION OF PROCEDURE: The patient was taken to the procedure room. He was placed in a supine position. Under sedation, he was prepped and draped in the usual sterile fashion. After proper time-out and identification of the site of surgery, we proceeded with infiltrating lidocaine 1% on the distal medial aspect of the left forearm. An up and down incision in this area was then performed. The incision was carried down through the skin and subcutaneous tissue. The basilic vein was then isolated, dissected out. The branches were ligated proximally and distally and tied off with 4-0 silk sutures and divided. After this was done, we then proceeded to open the forearm fascia and right under the flexor digitorum muscle, the ulnar artery was identified, isolated in vessel loops, care was taken to avoid the ulnar nerve and once the artery was isolated proximally and distally, we then proceeded to give the patient 2500 units of heparin. After this was done, we then proceeded to detach the basilic vein ligating it distally and transecting it. It was then spatulated and we proceeded to use the coronary dilators to see whether or not the vein was usable. We were able to dilate the vein up to 3.5 mm easily and were able to irrigate with saline. After this was done, we then proceeded to apply a Yasargil clamp to the proximal basilic vein. The end of the vein was then spatulated and prepared for an end-to-side anastomosis and after 5 minutes of cross clamp we then proceeded to perform an arteriotomy on the ulnar artery using 11 blade. The incision was then extended with Hughes scissors and after this was completed, we then proceeded to perform an end-to-side anastomosis using 7-0 Prolene in a parachute technique, after which the vein was then brought down and the anastomosis completed. Once this was completed, we then proceeded to release the Yasargil clamp and we proceeded to open the inflow of the ulnar artery. Minor oozing was controlled by pressure. There was excellent thrill into the basilic vein, confirmed by palpation and Doppler. The distal flow to the hand appeared to be unremarkable with excellent Doppler signal. After this was done, the area was then checked for hemostasis. No bleeding was noted. The fascia was then closed with interrupted 4-0 Vicryl sutures and the skin was closed with subcuticular 5-0 Monocryl. The patient tolerated procedure well and he was taken in good condition to recovery room. [id number]/[facility] #: [id number] GABBY
== END | disposition home or self-care (01) ==
LOC: OR 09:32
PROVIDERS: ATTEND Surgery
DX: T82.41XA Breakdown (mechanical) of vascular dialysis catheter, initial encounter (principal); T82.858A Stenosis of other vascular prosthetic devices, implants and grafts, initial encounter; N18.6 End stage renal disease; E11.22 Type 2 diabetes mellitus with diabetic chronic kidney disease; I12.0 Hypertensive chronic kidney disease with stage 5 chronic kidney disease or end stage renal disease; E78.00 Pure hypercholesterolemia, unspecified; I25.10 Atherosclerotic heart disease of native coronary artery without angina pectoris; Z79.82 Long term (current) use of aspirin; F17.210 Nicotine dependence, cigarettes, uncomplicated; X58.XXXA Exposure to other specified factors, initial encounter
CPT/HCPCS: J0690; J1644; J2250; J3010; J3490

== ENCOUNTER → 2019-05-06 06:46 | Day surgery (SDC) | payer MEDICARE, OTHER ==
--- NOTE | 2019-05-04 17:03 | HP ---
HISTORY AND PHYSICAL: DATE OF ADMISSION: 05/06/19 - [facility] CATH CHIEF COMPLAINT: Malfunctioning left arm arteriovenous fistula, rule out stenosis. HISTORY OF PRESENT ILLNESS: The patient is a 59-year-old male with end-stage renal disease, who has been under-going hemodialysis initially for over a year via a left radiocephalic fistula that started to malfunction, and the summer it was found to have areas of neointimal hyperplasia and stenosis and the segment was repaired in order to save the fistula with a bovine mesenteric interposition graft. Though the fistula remained open, it was not easy to cannulate. A new arteriovenous fistula was created on 01/19/19 which is the current fistula the patient has in place. The patient was admitted as an emergency with sepsis during the fall secondary to infections related to an open wound on the right lower extremity. Also, the patient has septic arthritis of the left lower extremity while he was an inpatient at [facility]. The tunneled catheter, while the fistula was deemed mature, had to be removed because it was felt it was infected and once the infection was under control, they attempted to perform dialysis via the left ulnar basilic arteriovenous fistula. The patient states that the arm blued up while they were doing hemodialysis, likely he was describing extravasation and the fistula was not used anymore. They then placed a new tunnel dialysis catheter on the left side and he has been undergoing hemodialysis via this tunneled catheter. The patient was seen in the office. The hematoma has completely resolved. The fistula has a thrill at the anastomosis; however, there is a high -pitch murmur towards the outflow in the antecubital area and this may indicate that the patient may have stenosis in this area. For this reason, the patient is being admitted by Dr. Torres to undergo angiography and possible angioplasty of the fistula. PAST MEDICAL HISTORY: Remarkable for: 1. Type 2 diabetes. 2. Hypertension. 3. Tobacco abuse. 4. High cholesterol. 5. Coronary artery disease. 6. Peripheral vascular disease. 7. End-stage renal disease. CURRENT MEDICATIONS: Include: 1. Aspirin 81 mg daily. 2. Carvedilol 12.5 mg p.o. b.i.d. 3. Epogen 10,000 units during dialysis. 4. Humalog 100 units per mL as directed. 5. Hydrochlorothiazide 50 mg tablets 1 tab p.o. q.8 hours. 6. Ferrous sulfate 325 mg p.o. daily. 7. Lantus insulin 100 units per mL as directed. 8. Levothyroxine 50 mcg p.o. daily. 9. Oxycodone 10 mg p.o. p.r.n. for pain. 10. Senna Plus 8.6/50 mg p.o. p.r.n. 11. Simvastatin 20 mg p.o. daily. 12. Trazodone 50 mg p.o. q.h.s. p.r.n. ALLERGIES: The patient has no known allergies. FAMILY HISTORY: Remarkable for parents with hypertension. SOCIAL HISTORY: The patient lives in a longterm and he is disabled. He smokes approximately 1 pack a day. REVIEW OF SYSTEMS: Contributory for cardiovascular: History of coronary disease, history of peripheral vascular disease and hypertension. Endocrinological: The patient has insulin-dependent diabetes mellitus and states that he has lost approximately 20 pounds recently ever since he was moved to the longterm. PHYSICAL EXAMINATION GENERAL: The patient sits in a wheelchair. He does not ambulate normally. He appears to be cachetic and obviously losing weight in comparison to the prior visits. He has an open wound on the right lower extremity that is connected to a wound VAC and he has a well-healed incision that was done at [facility] to drain septic arthritis. HEENT: Examination of the head and neck revealed a well-functioning left dialysis tunnel catheter. LUNGS: Clear to auscultation bilaterally. HEART: Regular without murmurs. ABDOMEN: The abdomen is soft, nontender. EXTREMITIES: There is no edema of the upper extremities. The upper extremities look emaciated. The left arm reveals an arteriovenous fistula between the basilic vein and the ulnar artery. The diameter of the fistula is approximately 6 mm. There is an excellent thrill at the anastomosis and on auscultation there is a high- pitch murmur at the antecubital fossa. The patient has excellent palpable pulses at the radial, branchials, and axillaries. In the lower extremity, the patient has nonpalpable pulses. IMPRESSION AND PLAN: Diagnostic impression is malfunctioning [place] arteriovenous fistula of the left arm. The plan is to proceed with angiography , possible balloon angioplasty by Dr. Torres. [id number]/[facility] #: [id number] [facility]OSPITALBrandon
[~2019-05-06 06:46] MED LIST changes: -Buffered Lidocaine 1% SYRIN* 1 ML/SYRINGE INTRADERM ONE; -Bupivacaine 0.25% EPI 200,000* 30 ML SDV ONE; -Bupivacaine 0.25% SDV PF* 10 ML VIAL INJ ONE; +Flumazenil* 0.1 MG/ML 5 ML MDV ONE; -Heparin VIAL(*) 5000 UNITS/ML VIAL (FIVE THOUSAND) ONE; +Iodixanol 320 (CONTRAST) 100 ML SDV ONE; +LORazepam TAB(*) 1 MG ONE; -Lactated Ringers 1000 ML Bag* 1,000 ML IV SCH; -Naloxone* 0.4 MG/ML 1 ML VIAL IV PRN; +Naloxone* 0.4 MG/ML 1 ML VIAL ONE; -Ondansetron INJ* 2 MG/ML VIAL IV PRN; -ceFAZolin 2 GM PREMIX in ORs 2 GM/50 ML BAG ONE; -fentaNYL* 50 MCG/ML 2 ML VIAL (100 MCG VIAL) IV PRN; -oxyCODONE TAB* 5 MG TAB PO PRN
[2019-05-06 08:12] LABS: BUN/Creatinine Ratio 12.6 (8-20); Calcium 8.4 mg/dL (8.6-10.3); EGFR African American 21.3 (>60); EGFR Non-African American 17.6 (>60); Potassium 3.6 mmol/L (3.5-5.0)
[2019-05-06 14:59] VITALS: BP 128/72
== END | disposition home or self-care (01) ==
LOC: CHICATH 06:46
PROVIDERS: ATTEND Radiology Diagnostic Radiology
DX: T82.510A Breakdown (mechanical) of surgically created arteriovenous fistula, initial encounter (principal); N18.6 End stage renal disease; Z99.2 Dependence on renal dialysis; E11.9 Type 2 diabetes mellitus without complications; Z79.4 Long term (current) use of insulin; I12.0 Hypertensive chronic kidney disease with stage 5 chronic kidney disease or end stage renal disease; I25.10 Atherosclerotic heart disease of native coronary artery without angina pectoris; I12.9 Hypertensive chronic kidney disease with stage 1 through stage 4 chronic kidney disease, or unspecified chronic kidney disease; I73.9 Peripheral vascular disease, unspecified; F17.210 Nicotine dependence, cigarettes, uncomplicated
CPT/HCPCS: 36415; 36901; 36902; 76937; 80048; 99156; 99157; A9270-GY; C1725; C1769; C1887; C1894; J1644; J2250; J2310; J3010

== ENCOUNTER 2021-08-05 16:01 | Observation (INO) ==
[2021-08-05 17:50] LABS: ABS Basophils 0.1 10^3/ul (0-0.2); ABS Eosinophils 0.3 10^3/ul (0-0.6); ABS Lymphocytes 1.4 10^3/ul (1.0-4.8); ABS Monocytes 0.5 10^3/ul (0-0.8); ABS Neutrophils 3.2 10^3/ul (1.5-7.7); Eosinophil % 5.7 %; Hematocrit 12 % (42-52); Hemoglobin 4.2 g/dL (14.0-18.0); Lymphocyte % 25.9 %; Mean Corpuscular HGB Conc 34 g/dL (31-36); Mean Corpuscular Hemoglobin 33 pg (27-31); Mean Corpuscular Volume 96 fL (80-94); Mean Platelet Volume 6.9 fL (7.4-10.4); Nucleated Red Blood Cells % 0.1; Platelet Count 190 10^3/uL (150-450); Red Blood Count 1.26 10^6 /uL (4.18-5.48); Red Cell Distribution Width 16 % (10-15); White Blood Count 5.6 10^3/uL (3.5-10.8)
[2021-08-05 18:26] LABS: Basophilic Stippling 2+
[2021-08-05 18:27] LABS: Hypochromasia 1+
[2021-08-05 18:42] LABS: Hematocrit 13 % (42-52); Hemoglobin 4.4 g/dL (14.0-18.0); Mean Corpuscular HGB Conc 35 g/dL (31-36); Mean Corpuscular Hemoglobin 33 pg (27-31); Mean Corpuscular Volume 95 fL (80-94); Mean Platelet Volume 6.9 fL (7.4-10.4); Platelet Count 180 10^3/uL (150-450); Red Blood Count 1.31 10^6 /uL (4.18-5.48); Red Cell Distribution Width 16 % (10-15); White Blood Count 5.5 10^3/uL (3.5-10.8)
[2021-08-05 18:57] LABS: Albumin 2.6 g/dL (3.2-5.2); Albumin/Globulin Ratio 0.7 (1-3); Calcium 7.4 mg/dL (8.6-10.3); Globulin 3.5 g/dL (2-4); Total Bilirubin 0.3 mg/dL (0.2-1.0); Total Protein 6.1 g/dL (6.4-8.9); eGFR CKD-EPI 28.9 (>60)
[2021-08-05 19:01] LABS: High Sensitivity Troponin 1 Hr 10 pg/mL (<20)
[2021-08-05] MEDS ORDERED: Pantoprazole VIAL 40 MG VIAL IV ONE (19:23)
[2021-08-05] MEDS ORDERED: Pantoprazole 80 mg in NS BAG 80 MG/250 ML BAG IV ONE (19:23)
[2021-08-06] MEDS ORDERED: Pantoprazole 80 mg in NS BAG 80 MG/250 ML BAG IV ONE (09:04)
[2021-08-06 10:56] LABS: ABS Basophils 0.1 10^3/ul (0-0.2); ABS Eosinophils 0.3 10^3/ul (0-0.6); ABS Lymphocytes 1.2 10^3/ul (1.0-4.8); ABS Monocytes 0.5 10^3/ul (0-0.8); ABS Neutrophils 3.7 10^3/ul (1.5-7.7); Eosinophil % 5.2 %; Hematocrit 21 % (42-52); Hemoglobin 7.1 g/dL (14.0-18.0); Lymphocyte % 21.3 %; Mean Corpuscular HGB Conc 35 g/dL (31-36); Mean Corpuscular Hemoglobin 31 pg (27-31); Mean Corpuscular Volume 90 fL (80-94); Mean Platelet Volume 6.9 fL (7.4-10.4); Platelet Count 160 10^3/uL (150-450); Red Blood Count 2.27 10^6 /uL (4.18-5.48); Red Cell Distribution Width 16 % (10-15); White Blood Count 5.8 10^3/uL (3.5-10.8)
[2021-08-06 12:06] LABS: Hepatitis B Surface Antigen Nonreactive (Nonreactive)
[2021-08-06 12:42] LABS: Hepatitis C Antibody Reactive (Negative)
[2021-08-06] MEDS ORDERED: Ondansetron 4 mg VIAL 2 MG/ML 2 ml VIAL IV PRN (12:52)
[2021-08-06] MEDS ORDERED: Dextrose 50% Syringe 50 ml 25 GM/50 ML SYRINGE IV PUSH PRN (13:21)
[2021-08-06 13:40] LABS: Hepatitis A Ab IgM Negative (Negative)
[2021-08-06 13:41] LABS: Hepatitis B Core IgM Nonreactive (Nonreactive)
[2021-08-06 13:45] LABS: Corrected Retic Count 1.2 % (0.5-1.5); Hematocrit for Retic CNT 21 % (42-52); Immature Retic Fraction 0.55; RBC Retic Count 2.27 10^6/uL (4.18-5.48)
[2021-08-06] MEDS: Pantoprazole 80 mg in NS BAG 80 MG/250 ML BAG IV SCH (14:16)
[2021-08-06] MEDS ORDERED: fentaNYL 100 mcg/2 ml 50 MCG/ML VIAL ONE (16:19)
[2021-08-06] MEDS ORDERED: Midazolam 10 mg/10 ml VIAL 1 mg/ml 10 ml VIAL (10 mg) ONE (16:19)
[2021-08-06] MEDS: MENTHOL TOPICAL SCH ×2 (18:07→20:10)
[2021-08-06] MEDS ORDERED: EPINEPHrine SYR 0.1MG/ML 10 ml SYRINGE ONE (18:25)
[2021-08-06] MEDS ORDERED: Octreotide Acetate 50 MCG in NS 0.9% 50 ML 50 ML IV ONE (18:45)
[2021-08-06] MEDS ORDERED: Octreotide Acetate 500 MCG in NS 0.9% 100 ml BAG 100 ML IV SCH (19:00)
[2021-08-06 20:16] LABS: ABS Basophils 0.1 10^3/ul (0-0.2); ABS Eosinophils 0.3 10^3/ul (0-0.6); ABS Lymphocytes 1.3 10^3/ul (1.0-4.8); ABS Monocytes 0.5 10^3/ul (0-0.8); ABS Neutrophils 4.2 10^3/ul (1.5-7.7); Eosinophil % 4.1 %; Hematocrit 19 % (42-52); Hemoglobin 6.7 g/dL (14.0-18.0); Lymphocyte % 20.4 %; Mean Corpuscular HGB Conc 35 g/dL (31-36); Mean Corpuscular Hemoglobin 32 pg (27-31); Mean Corpuscular Volume 90 fL (80-94); Mean Platelet Volume 6.8 fL (7.4-10.4); Nucleated Red Blood Cells % 0.1; Platelet Count 155 10^3/uL (150-450); Red Cell Distribution Width 17 % (10-15); White Blood Count 6.2 10^3/uL (3.5-10.8)
[2021-08-06 20:47] LABS: % Iron Saturation 77 % (15-55); Iron 150 ug/dL (50-212); Total Iron Binding Capacity 195 mcg/dL (250-450); Transferrin 139 mg/dL (203-362); Unsaturated Iron Binding 45 ug/dL
[2021-08-06 21:12] LABS: Folate > 20.00 ng/mL (5.90-24.80)
[2021-08-06 21:14] LABS: Vitamin B12 687 pg/mL (180-914)
[2021-08-07] MEDS ORDERED: Pantoprazole 80 mg in NS BAG 80 MG/250 ML BAG IV SCH
[2021-08-07] MEDS: Pantoprazole 80 mg in NS BAG 80 MG/250 ML BAG IV SCH ×4 (00:22→21:24)
[2021-08-07] MEDS ORDERED: Acetaminophen IV 1 GM/100ML 100 ML IV ONE (01:38)
[2021-08-07] MEDS ORDERED: Lactated Ringers 500 ml BAG 500 ML IV ONE (02:03)
[2021-08-07] MEDS ORDERED: ZOSYN 3.375 GM x ONE DOSE over 30 miuntes IV (02:15)
[2021-08-07 02:30] LABS: ABS Eosinophils 0.1 10^3/ul (0-0.6); ABS Lymphocytes 0.8 10^3/ul (1.0-4.8); ABS Monocytes 0.6 10^3/ul (0-0.8); ABS Neutrophils 6.6 10^3/ul (1.5-7.7); Eosinophil % 1.6 %; Hematocrit 21 % (42-52); Hemoglobin 7.4 g/dL (14.0-18.0); Lymphocyte % 9.5 %; Mean Corpuscular HGB Conc 35 g/dL (31-36); Mean Corpuscular Hemoglobin 31 pg (27-31); Mean Corpuscular Volume 91 fL (80-94); Mean Platelet Volume 6.8 fL (7.4-10.4); Platelet Count 197 10^3/uL (150-450); Red Blood Count 2.34 10^6 /uL (4.18-5.48); Red Cell Distribution Width 16 % (10-15); White Blood Count 8.1 10^3/uL (3.5-10.8)
[2021-08-07 02:46] LABS: INR 1.09 (0.86-1.15)
[2021-08-07 02:53] LABS: Albumin 2.6 g/dL (3.2-5.2); Albumin/Globulin Ratio 0.8 (1-3); Calcium 7.6 mg/dL (8.6-10.3); Globulin 3.4 g/dL (2-4); Potassium 4.7 mmol/L (3.5-5.0); Total Bilirubin 0.5 mg/dL (0.2-1.0); eGFR CKD-EPI 18.2 (>60)
[2021-08-07] MEDS ORDERED: Zosyn per Pharmacy NOTE FOLLOW UP SCH (03:00)
[2021-08-07] MEDS: ZOSYN 3.375 GM Q8H per EXTENDED INFUSION IV SCH ×2 (05:40→18:09)
[2021-08-07 06:24] LABS: ABS Eosinophils 0.1 10^3/ul (0-0.6); ABS Lymphocytes 0.6 10^3/ul (1.0-4.8); ABS Monocytes 0.8 10^3/ul (0-0.8); Eosinophil % 0.6 %; Hematocrit 19 % (42-52); Hemoglobin 6.8 g/dL (14.0-18.0); Lymphocyte % 6.4 %; Mean Corpuscular HGB Conc 37 g/dL (31-36); Mean Corpuscular Hemoglobin 33 pg (27-31); Mean Corpuscular Volume 89 fL (80-94); Mean Platelet Volume 6.8 fL (7.4-10.4); Platelet Count 155 10^3/uL (150-450); Red Blood Count 2.07 10^6 /uL (4.18-5.48); Red Cell Distribution Width 17 % (10-15); White Blood Count 9.5 10^3/uL (3.5-10.8)
[2021-08-07 06:49] LABS: Calcium 7.4 mg/dL (8.6-10.3); Magnesium 1.8 mg/dL (1.9-2.7); Potassium 4.5 mmol/L (3.5-5.0)
[2021-08-07] MEDS ORDERED: Magnesium Sulfate IV 1GM/100ML 1 GM/100 ML BAG IV ONE (07:50)
[2021-08-07] MEDS ORDERED: Iodixanol (CONTRAST) 320 MG/ML 100 ML SDV IV ONE (08:04)
[2021-08-07] MEDS: MENTHOL TOPICAL SCH ×2 (16:22→21:19)
[2021-08-07 17:24] LABS: Hematocrit 22 % (42-52); Hemoglobin 7.5 g/dL (14.0-18.0)
[2021-08-08] MEDS: Pantoprazole 80 mg in NS BAG 80 MG/250 ML BAG IV SCH (05:45)
[2021-08-08] MEDS: ZOSYN 3.375 GM Q8H per EXTENDED INFUSION IV SCH ×2 (05:45→18:09)
[2021-08-08 06:19] LABS: ABS Basophils 0.1 10^3/ul (0-0.2); ABS Eosinophils 0.2 10^3/ul (0-0.6); ABS Monocytes 0.8 10^3/ul (0-0.8); ABS Neutrophils 7.1 10^3/ul (1.5-7.7); Eosinophil % 2.5 %; Hematocrit 20 % (42-52); Mean Corpuscular HGB Conc 35 g/dL (31-36); Mean Corpuscular Hemoglobin 32 pg (27-31); Mean Corpuscular Volume 90 fL (80-94); Platelet Count 159 10^3/uL (150-450); Red Blood Count 2.22 10^6 /uL (4.18-5.48); Red Cell Distribution Width 17 % (10-15); White Blood Count 9.1 10^3/uL (3.5-10.8)
[2021-08-08 06:43] LABS: Calcium 7.4 mg/dL (8.6-10.3); Magnesium 2.1 mg/dL (1.9-2.7); Potassium 3.9 mmol/L (3.5-5.0); eGFR CKD-EPI 26.9 (>60)
[2021-08-08] MEDS: MENTHOL TOPICAL SCH ×3 (10:58→19:09)
[2021-08-08] MEDS: Pantoprazole VIAL 40 MG VIAL IV SCH ×2 (11:25→20:23)
[2021-08-09] MEDS: ZOSYN 3.375 GM Q8H per EXTENDED INFUSION IV SCH (06:12)
[2021-08-09 07:31] VITALS: BP 144/79
[2021-08-09 08:06] LABS: ABS Basophils 0.1 10^3/ul (0-0.2); ABS Eosinophils 0.3 10^3/ul (0-0.6); ABS Lymphocytes 1.2 10^3/ul (1.0-4.8); ABS Neutrophils 6.6 10^3/ul (1.5-7.7); Eosinophil % 3.3 %; Hematocrit 22 % (42-52); Hemoglobin 7.7 g/dL (14.0-18.0); Lymphocyte % 13.5 %; Mean Corpuscular HGB Conc 35 g/dL (31-36); Mean Corpuscular Hemoglobin 31 pg (27-31); Mean Corpuscular Volume 90 fL (80-94); Mean Platelet Volume 6.7 fL (7.4-10.4); Platelet Count 211 10^3/uL (150-450); Red Blood Count 2.46 10^6 /uL (4.18-5.48); Red Cell Distribution Width 17 % (10-15); White Blood Count 9.2 10^3/uL (3.5-10.8)
[2021-08-09 08:41] LABS: Calcium 7.7 mg/dL (8.6-10.3); Magnesium 2.3 mg/dL (1.9-2.7); Potassium 4.1 mmol/L (3.5-5.0); eGFR CKD-EPI 17.1 (>60)
[2021-08-09] MEDS: Pantoprazole VIAL 40 MG VIAL IV SCH (08:58)
[2021-08-09] MEDS: MENTHOL TOPICAL SCH (08:59)
== END 2021-08-09 11:00 | disposition home or self-care (01) ==
LOC: EDHOLD 16:01 → ED 16:01 → SUATTDRO 08-06 13:05 → EDHOLD 08-06 14:54 → MED 08-06 16:00
PROVIDERS: ADMIT Internal Medicine; ATTEND Hospitalist

== ENCOUNTER 2024-01-01 07:48 | Inpatient (IN) ==
[2024-01-01 08:46] LABS: Hematocrit 31.5 % (38-53); Hemoglobin 10.4 g/dL (13.2-16.3); Mean Corpuscular Hemoglobin 28.3 pg (27-33); Mean Corpuscular Hgb Conc 32.9 g/dL (31-36); Red Blood Count 3.67 10^6/uL (4.06-5.63); Red Cell Distribution Width 19.3 % (12-17); White Blood Count 4.8 10^3/uL (3.6-10.2)
[2024-01-01 09:07] LABS: Mean Platelet Volume 8.3 fL (7.5-11.2); Platelet Count 78 10^3/uL (150-450)
[2024-01-01 09:15] LABS: ABS Eosinophils 0.1 10^3/uL (0.0-0.5); ABS Lymphocytes 0.9 10^3/uL (1.0-4.8); ABS Monocytes 0.5 10^3/uL (0.0-1.1); ABS Neutrophils 3.3 10^3/uL (1.5-7.6); ABS Nucleated RBC 0.01 10^3/ul; Anisocytosis 1+; Eosinophil % 1.6 %; Lymphocyte % 19.5 %; Nucleated Red Blood Cells % 0.1 %/100WBC (0.0-0.8); Target Cells 1+
[2024-01-01 10:56] LABS: ALT 8 U/L (7-52); Albumin 2.5 g/dL (3.2-5.2); Albumin/Globulin Ratio 0.5 (1-3); Alkaline Phosphatase 123 U/L (35-149); Anion Gap 9 mmol/L (2-16); Blood Urea Nitrogen 32 mg/dL (6-24); CO2 Carbon Dioxide 29 mmol/L (22-32); Calcium 7.4 mg/dL (8.6-10.3); Chloride 96 mmol/L (101-111); Creatinine, Serum 2.84 mg/dL (0.67-1.17); Globulin 4.9 g/dL (2-4); Glucose 145 mg/dL (70-100); Sodium 134 mmol/L (135-145); Total Bilirubin 0.8 mg/dL (0.2-1.0); Total Protein 7.4 g/dL (6.4-8.9)
[2024-01-01] MEDS: Dextrose 50% Syringe 50 ml 25 GM/50 ML SYRINGE IV PUSH ONE (14:06)
[2024-01-01 15:39] LABS: AST Redraw 25 U/L (13-39); Potassium Redraw 4.4 mmol/L (3.5-5.0)
[2024-01-01] MEDS: D10W 1000 ml BAG 500 ML IV SCH (18:02)
[2024-01-01 19:45] LABS: % Iron Saturation 19 % (15-55); .Transferrin < 75 mg/dL (203-362); C Reactive Protein 78.26 mg/L (<8.01); Iron 20 ug/dL (50-212); Total Iron Binding Capacity 105 mcg/dL (250-450); Unsaturated Iron Binding 85 ug/dL
[2024-01-01 20:09] LABS: Ferritin 954.4 ng/mL (24-336)
[2024-01-01 20:15] LABS: Vitamin B12 979 pg/mL (180-914)
[2024-01-01 21:04] LABS: Hepatitis C Antibody Reactive (Negative)
[2024-01-01 21:22] LABS: Folate 7.67 ng/mL (5.90-24.80)
[2024-01-01] MEDS: Iodixanol (CONTRAST) 320 MG/ML 100 ML SDV IV ONE (22:58)
[2024-01-02] MEDS: D10W 1000 ml BAG 500 ML IV SCH (00:07)
[2024-01-02 02:33] LABS: Free T3 1.72 pg/mL (2.5-3.9)
[2024-01-02 02:35] LABS: Free T4 1.26 ng/dL (0.61-1.12)
[2024-01-02 02:39] LABS: TSH Ultra Thyroid Stim Horm 8.4 mcIU/mL (0.34-5.60)
[2024-01-02 02:54] LABS: Insulin 0.9 mcIU/mL (2.0-16.0)
[2024-01-02] MEDS: cefTRIAXone 1 gm/50 mL D5W 1 GM/50 ML BAG IV SCH (03:26)
[2024-01-02] MEDS: Azithromycin 500 mg/250 ml NS 500 MG/250 ML BAG IVPB SCH (03:32)
[2024-01-02] MEDS: Thiamine IV 100 MG in NS 0.9% 50 ML Q24H IV ONE (04:09)
[2024-01-02] MEDS: Thiamine 100 MG/ML 2 ml VIAL (200 mg) IV ONE (04:12)
[2024-01-02] MEDS: Folic Acid IV 5 MG/ML 10 ML VIAL (50 mg) IV ONE (04:12)
[2024-01-02 04:58] LABS: ABS Basophils 0.2 10^3/uL (0.0-0.1); ABS Eosinophils 0.1 10^3/uL (0.0-0.5); ABS Lymphocytes 0.7 10^3/uL (1.0-4.8); ABS Monocytes 0.7 10^3/uL (0.0-1.1); ABS Neutrophils 5.1 10^3/uL (1.5-7.6); ABS Nucleated RBC 0.01 10^3/ul; Eosinophil % 1.5 %; Hematocrit 26.8 % (38-53); Hemoglobin 8.7 g/dL (13.2-16.3); Lymphocyte % 10.6 %; Mean Corpuscular Hemoglobin 27.5 pg (27-33); Mean Corpuscular Hgb Conc 32.4 g/dL (31-36); Mean Platelet Volume 8.7 fL (7.5-11.2); Nucleated Red Blood Cells % 0.1 %/100WBC (0.0-0.8); Platelet Count 97 10^3/uL (150-450); Red Blood Count 3.15 10^6/uL (4.06-5.63); Red Cell Distribution Width 19.1 % (12-17); White Blood Count 6.8 10^3/uL (3.6-10.2)
[2024-01-02] MEDS: Folic Acid IV 1 MG in NS 0.9% 50 ML 50 ML IV ONE (05:37)
[2024-01-02 06:23] LABS: Anion Gap 10 mmol/L (2-16); Blood Urea Nitrogen 39 mg/dL (6-24); CO2 Carbon Dioxide 27 mmol/L (22-32); Calcium 7.3 mg/dL (8.6-10.3); Chloride 92 mmol/L (101-111); Creatinine, Serum 3.68 mg/dL (0.67-1.17); Glucose 78 mg/dL (70-100); Sodium 129 mmol/L (135-145); eGFR CKD-EPI 17.6 (>60)
[2024-01-02] MEDS: D10W 1000 ml BAG 1,000 ML IV SCH (06:29)
[2024-01-02 09:12] LABS: Glucose 68 mg/dL (70-100); Magnesium 1.8 mg/dL (1.9-2.7)
[2024-01-02 09:16] LABS: Potassium, Whole Blood 4.6 mmol/L (3.4-4.5)
[2024-01-02] MEDS: Heparin 5000 UNITS/ML 1 mL VIAL SUBCUT SCH (09:19)
[2024-01-02] MEDS: Magnesium Sulfate IV 1GM/100ML 1 GM/100 ML BAG IV ONE (11:10)
[2024-01-02] MEDS: Magnesium Sulfate 2 gm BAG 2 GM/50 ML BAG IVPB ONE (11:29)
[2024-01-02] MEDS: Sodium Chloride CONC. 4 MEQ/ML 77 MEQ in D10W 1000 ml BAG 1,000 ML IV SCH (12:01)
[2024-01-02] MEDS ORDERED: NS 0.9% 1000 ml BAG 200 ML IV PRN (13:49)
[2024-01-02] MEDS: Acetaminophen IV 1 GM/100ML 1,000 MG/100 ML BAG IV PRN (14:59)
[2024-01-02] MEDS: Sodium Chloride CONC. 4 MEQ/ML 38.5 MEQ in D10W 1000 ml BAG 1,000 ML IV SCH ×2 (15:33→16:38)
[2024-01-02 16:15] LABS: Hepatitis B Surface Antigen Nonreactive (Nonreactive)
[2024-01-02 16:37] LABS: Calcium 7.6 mg/dL (8.6-10.3); Creatinine, Serum 3.93 mg/dL (0.67-1.17); Phosphorus 2.8 mg/dL (2.5-5.0); Potassium 4.4 mmol/L (3.5-5.0); eGFR CKD-EPI 16.3 (>60)
[2024-01-02 20:47] LABS: Hepatitis B Surface Ab Indeterminate (Immune)
[2024-01-02 22:41] LABS: Calcium 7.2 mg/dL (8.6-10.3); Creatinine, Serum 4.1 mg/dL (0.67-1.17); eGFR CKD-EPI 15.5 (>60)
[2024-01-02] MEDS ORDERED: D10W 1000 ml BAG 1,000 ML IV SCH (23:00)
[2024-01-03] MEDS: Sodium Chloride CONC. 4 MEQ/ML 77 MEQ in D10W 1000 ml BAG 1,000 ML IV SCH (00:14)
[2024-01-03 04:57] LABS: Hematocrit 26.6 % (38-53); Hemoglobin 8.6 g/dL (13.2-16.3); Mean Corpuscular Hemoglobin 27.5 pg (27-33); Mean Corpuscular Hgb Conc 32.3 g/dL (31-36); Mean Corpuscular Volume 85.1 fL (80-97); Red Blood Count 3.13 10^6/uL (4.06-5.63); Red Cell Distribution Width 19.1 % (12-17); White Blood Count 4.5 10^3/uL (3.6-10.2)
[2024-01-03 05:28] LABS: ABS Basophils 0.1 10^3/uL (0.0-0.1); ABS Eosinophils 0.2 10^3/uL (0.0-0.5); ABS Lymphocytes 1.1 10^3/uL (1.0-4.8); ABS Monocytes 0.4 10^3/uL (0.0-1.1); ABS Neutrophils 2.7 10^3/uL (1.5-7.6); ABS Nucleated RBC 0.01 10^3/ul; Eosinophil % 4.5 %; Lymphocyte % 24.4 %; Mean Platelet Volume 8.1 fL (7.5-11.2); Nucleated Red Blood Cells % 0.2 %/100WBC (0.0-0.8); Platelet Count 68 10^3/uL (150-450)
[2024-01-03 06:18] LABS: ALT 17 U/L (7-52); Albumin 2.2 g/dL (3.2-5.2); Albumin/Globulin Ratio 0.5 (1-3); Alkaline Phosphatase 104 U/L (35-149); Anion Gap 6 mmol/L (2-16); Blood Urea Nitrogen 48 mg/dL (6-24); CO2 Carbon Dioxide 26 mmol/L (22-32); Calcium 7.2 mg/dL (8.6-10.3); Chloride 89 mmol/L (101-111); Creatinine, Serum 4.19 mg/dL (0.67-1.17); Globulin 4.1 g/dL (2-4); Glucose 99 mg/dL (70-100); Sodium 121 mmol/L (135-145); Total Bilirubin 0.6 mg/dL (0.2-1.0); Total Protein 6.3 g/dL (6.4-8.9); eGFR CKD-EPI 15.1 (>60)
[2024-01-03 07:18] LABS: Magnesium 2.1 mg/dL (1.9-2.7); Phosphorus 3.1 mg/dL (2.5-5.0); Potassium Redraw 4.4 mmol/L (3.5-5.0)
[2024-01-03] MEDS: Dextrose 50% Syringe 50 ml 25 GM/50 ML SYRINGE IV PUSH PRN (08:41)
[2024-01-04 06:50] LABS: ABS Eosinophils 0.1 10^3/uL (0.0-0.5); ABS Lymphocytes 0.9 10^3/uL (1.0-4.8); ABS Monocytes 0.4 10^3/uL (0.0-1.1); ABS Neutrophils 3.3 10^3/uL (1.5-7.6); Eosinophil % 2.8 %; Hematocrit 29.1 % (38-53); Hemoglobin 9.7 g/dL (13.2-16.3); Lymphocyte % 19.2 %; Mean Corpuscular Hemoglobin 28.2 pg (27-33); Mean Corpuscular Hgb Conc 33.4 g/dL (31-36); Mean Corpuscular Volume 84.4 fL (80-97); Platelet Count 74 10^3/uL (150-450); Red Blood Count 3.45 10^6/uL (4.06-5.63); Red Cell Distribution Width 18.9 % (12-17); White Blood Count 4.8 10^3/uL (3.6-10.2)
[2024-01-04 06:58] LABS: Calcium 7.5 mg/dL (8.6-10.3); Creatinine, Serum 4.62 mg/dL (0.67-1.17); Magnesium 2.2 mg/dL (1.9-2.7); Phosphorus 3.3 mg/dL (2.5-5.0); Potassium 4.8 mmol/L (3.5-5.0); eGFR CKD-EPI 13.4 (>60)
[2024-01-04] MEDS ORDERED: Lorazepam PYXIS KEY PRN (09:01)
[2024-01-04] MEDS: LORazepam 2 mg VIAL 1 ml IV PUSH PRN (09:18)
[2024-01-04] MEDS: Heparin 1,000 UNIT/ML 10 ml (10,000 UNITS) CATHLAB/DIALYSIS DIALYSIS PRN (09:45)
[2024-01-04] MEDS: Albumin Human 25% 25 GM/100 ML BTL IV PRN (09:49)
[2024-01-04] MEDS: NS 0.9% 1000 ml BAG 100 ML IV PRN (10:15)
[2024-01-04] MEDS ORDERED: LORazepam 2 mg VIAL 1 ml IV PUSH PRN (11:17)
[2024-01-04 14:41] LABS: INR 1.43 (0.85-1.14)
[2024-01-04 15:36] LABS: Albumin 2.9 g/dL (3.2-5.2); Albumin/Globulin Ratio 0.8 (1-3); Calcium 7.7 mg/dL (8.6-10.3); Creatinine, Serum 2.26 mg/dL (0.67-1.17); Globulin 3.7 g/dL (2-4); Magnesium 1.9 mg/dL (1.9-2.7); Potassium 3.5 mmol/L (3.5-5.0); Total Bilirubin 0.7 mg/dL (0.2-1.0); Total Protein 6.6 g/dL (6.4-8.9); eGFR CKD-EPI 31.6 (>60)
[2024-01-04] MEDS: D5NS 0.9% 1000 ml BAG 1,000 ML IV SCH (16:12)
[2024-01-05 05:28] LABS: ABS Eosinophils 0.1 10^3/uL (0.0-0.5); ABS Lymphocytes 0.5 10^3/uL (1.0-4.8); ABS Monocytes 0.2 10^3/uL (0.0-1.1); ABS Neutrophils 3.9 10^3/uL (1.5-7.6); Eosinophil % 2.4 %; Hematocrit 29.4 % (38-53); Hemoglobin 9.5 g/dL (13.2-16.3); Lymphocyte % 11.3 %; Mean Corpuscular Hemoglobin 27.5 pg (27-33); Mean Corpuscular Hgb Conc 32.4 g/dL (31-36); Mean Corpuscular Volume 84.9 fL (80-97); Mean Platelet Volume 8.1 fL (7.5-11.2); Nucleated Red Blood Cells % 0.1 %/100WBC (0.0-0.8); Platelet Count 72 10^3/uL (150-450); Red Blood Count 3.47 10^6/uL (4.06-5.63); Red Cell Distribution Width 18.9 % (12-17); White Blood Count 4.8 10^3/uL (3.6-10.2)
[2024-01-05 05:54] LABS: Albumin 2.5 g/dL (3.2-5.2); Albumin/Globulin Ratio 0.6 (1-3); Calcium 7.6 mg/dL (8.6-10.3); Creatinine, Serum 2.86 mg/dL (0.67-1.17); Globulin 3.9 g/dL (2-4); Potassium 3.9 mmol/L (3.5-5.0); Total Bilirubin 0.6 mg/dL (0.2-1.0); Total Protein 6.4 g/dL (6.4-8.9); eGFR CKD-EPI 23.8 (>60)
[2024-01-06 06:22] LABS: ABS Basophils 0.1 10^3/uL (0.0-0.1); ABS Eosinophils 0.2 10^3/uL (0.0-0.5); ABS Lymphocytes 0.9 10^3/uL (1.0-4.8); ABS Monocytes 0.3 10^3/uL (0.0-1.1); ABS Neutrophils 3.6 10^3/uL (1.5-7.6); Eosinophil % 3.7 %; Hematocrit 27.5 % (38-53); Hemoglobin 9.1 g/dL (13.2-16.3); Mean Corpuscular Hgb Conc 33.1 g/dL (31-36); Mean Corpuscular Volume 84.5 fL (80-97); Mean Platelet Volume 8.7 fL (7.5-11.2); Platelet Count 67 10^3/uL (150-450); Red Blood Count 3.26 10^6/uL (4.06-5.63); Red Cell Distribution Width 18.7 % (12-17); White Blood Count 5.1 10^3/uL (3.6-10.2)
[2024-01-06 07:12] LABS: Calcium 7.8 mg/dL (8.6-10.3); Creatinine, Serum 3.52 mg/dL (0.67-1.17); Potassium 4.8 mmol/L (3.5-5.0); eGFR CKD-EPI 18.6 (>60)
[2024-01-07 06:49] LABS: ABS Eosinophils 0.3 10^3/uL (0.0-0.5); ABS Lymphocytes 0.9 10^3/uL (1.0-4.8); ABS Monocytes 0.4 10^3/uL (0.0-1.1); ABS Neutrophils 2.4 10^3/uL (1.5-7.6); ABS Nucleated RBC 0.01 10^3/ul; Eosinophil % 6.9 %; Hematocrit 25.8 % (38-53); Hemoglobin 8.6 g/dL (13.2-16.3); Lymphocyte % 22.1 %; Mean Corpuscular Hemoglobin 28.3 pg (27-33); Mean Corpuscular Hgb Conc 33.4 g/dL (31-36); Mean Corpuscular Volume 84.8 fL (80-97); Mean Platelet Volume 8.5 fL (7.5-11.2); Nucleated Red Blood Cells % 0.1 %/100WBC (0.0-0.8); Platelet Count 59 10^3/uL (150-450); Red Blood Count 3.04 10^6/uL (4.06-5.63); Red Cell Distribution Width 18.8 % (12-17)
[2024-01-07 06:59] LABS: Calcium 7.5 mg/dL (8.6-10.3); Creatinine, Serum 2.23 mg/dL (0.67-1.17); Magnesium 1.8 mg/dL (1.9-2.7); Potassium 3.7 mmol/L (3.5-5.0); eGFR CKD-EPI 32.1 (>60)
[2024-01-07] MEDS: Magnesium Sulfate 2 gm BAG 2 GM/50 ML BAG IVPB ONE (09:22)
[2024-01-08 08:11] LABS: ABS Basophils 0.1 10^3/uL (0.0-0.1); ABS Eosinophils 0.2 10^3/uL (0.0-0.5); ABS Lymphocytes 1.1 10^3/uL (1.0-4.8); ABS Monocytes 0.6 10^3/uL (0.0-1.1); ABS Neutrophils 3.1 10^3/uL (1.5-7.6); Eosinophil % 4.5 %; Hematocrit 25.1 % (38-53); Hemoglobin 8.4 g/dL (13.2-16.3); Lymphocyte % 21.5 %; Mean Corpuscular Hemoglobin 28.3 pg (27-33); Mean Corpuscular Hgb Conc 33.6 g/dL (31-36); Mean Corpuscular Volume 84.4 fL (80-97); Mean Platelet Volume 7.7 fL (7.5-11.2); Nucleated Red Blood Cells % 0.1 %/100WBC (0.0-0.8); Platelet Count 71 10^3/uL (150-450); Red Blood Count 2.97 10^6/uL (4.06-5.63); Red Cell Distribution Width 18.9 % (12-17)
[2024-01-08 08:56] LABS: Calcium 8.1 mg/dL (8.6-10.3); Creatinine, Serum 3.41 mg/dL (0.67-1.17); Potassium 4.9 mmol/L (3.5-5.0); eGFR CKD-EPI 19.3 (>60)
[2024-01-08] MEDS: LORazepam 2 mg VIAL 1 ml IV PUSH PRN (15:11)
[2024-01-09 06:35] LABS: ABS Basophils 0.1 10^3/uL (0.0-0.1); ABS Eosinophils 0.2 10^3/uL (0.0-0.5); ABS Monocytes 0.5 10^3/uL (0.0-1.1); ABS Neutrophils 1.9 10^3/uL (1.5-7.6); ABS Nucleated RBC 0.01 10^3/ul; Creatinine, Serum 2.68 mg/dL (0.67-1.17); Eosinophil % 5.2 %; Hematocrit 24.6 % (38-53); Hemoglobin 8.3 g/dL (13.2-16.3); Lymphocyte % 28.1 %; Mean Corpuscular Hemoglobin 28.4 pg (27-33); Mean Corpuscular Hgb Conc 33.6 g/dL (31-36); Mean Corpuscular Volume 84.5 fL (80-97); Mean Platelet Volume 7.6 fL (7.5-11.2); Nucleated Red Blood Cells % 0.3 %/100WBC (0.0-0.8); Platelet Count 67 10^3/uL (150-450); Potassium 4.5 mmol/L (3.5-5.0); Red Blood Count 2.92 10^6/uL (4.06-5.63); Red Cell Distribution Width 18.3 % (12-17); White Blood Count 3.7 10^3/uL (3.6-10.2); eGFR CKD-EPI 25.7 (>60)
[2024-01-10 06:10] LABS: ABS Eosinophils 0.3 10^3/uL (0.0-0.5); ABS Lymphocytes 0.9 10^3/uL (1.0-4.8); ABS Monocytes 0.4 10^3/uL (0.0-1.1); ABS Neutrophils 1.8 10^3/uL (1.5-7.6); Eosinophil % 7.8 %; Hematocrit 25.4 % (38-53); Hemoglobin 8.5 g/dL (13.2-16.3); Lymphocyte % 26.2 %; Mean Corpuscular Hemoglobin 28.4 pg (27-33); Mean Corpuscular Hgb Conc 33.6 g/dL (31-36); Mean Corpuscular Volume 84.6 fL (80-97); Mean Platelet Volume 7.6 fL (7.5-11.2); Nucleated Red Blood Cells % 0.1 %/100WBC (0.0-0.8); Platelet Count 70 10^3/uL (150-450); Red Blood Count 3.01 10^6/uL (4.06-5.63); Red Cell Distribution Width 18.7 % (12-17); White Blood Count 3.5 10^3/uL (3.6-10.2)
[2024-01-10 06:23] LABS: Magnesium 2.1 mg/dL (1.9-2.7)
[2024-01-10 06:24] LABS: Albumin 2.6 g/dL (3.2-5.2); Albumin/Globulin Ratio 0.7 (1-3); Calcium 8.2 mg/dL (8.6-10.3); Creatinine, Serum 3.23 mg/dL (0.67-1.17); Potassium 4.6 mmol/L (3.5-5.0); Total Bilirubin 0.6 mg/dL (0.2-1.0); Total Protein 6.6 g/dL (6.4-8.9); eGFR CKD-EPI 20.6 (>60)
[2024-01-11 06:07] LABS: ABS Basophils 0.1 10^3/uL (0.0-0.1); ABS Eosinophils 0.2 10^3/uL (0.0-0.5); ABS Monocytes 0.3 10^3/uL (0.0-1.1); ABS Neutrophils 3.6 10^3/uL (1.5-7.6); ABS Nucleated RBC 0.01 10^3/ul; Eosinophil % 4.6 %; Hematocrit 24.6 % (38-53); Mean Corpuscular Hemoglobin 27.6 pg (27-33); Mean Corpuscular Hgb Conc 32.5 g/dL (31-36); Mean Corpuscular Volume 85.2 fL (80-97); Mean Platelet Volume 8.7 fL (7.5-11.2); Nucleated Red Blood Cells % 0.1 %/100WBC (0.0-0.8); Platelet Count 107 10^3/uL (150-450); Red Blood Count 2.89 10^6/uL (4.06-5.63); Red Cell Distribution Width 18.8 % (12-17); White Blood Count 5.2 10^3/uL (3.6-10.2)
[2024-01-11 06:27] LABS: Albumin 2.5 g/dL (3.2-5.2); Albumin/Globulin Ratio 0.6 (1-3); Calcium 7.9 mg/dL (8.6-10.3); Creatinine, Serum 3.94 mg/dL (0.67-1.17); Globulin 3.9 g/dL (2-4); Magnesium 2.1 mg/dL (1.9-2.7); Potassium 5.5 mmol/L (3.5-5.0); Total Bilirubin 0.6 mg/dL (0.2-1.0); Total Protein 6.4 g/dL (6.4-8.9); eGFR CKD-EPI 16.1 (>60)
[2024-01-11 14:02] VITALS: BP 104/55
[2024-01-11] MEDS: Morphine ORAL CONCENTRATE 5 MG/0.25 ML ORAL.SYRIN SL PRN (16:23)
== END 2024-01-11 19:00 | disposition expired | DRG 637 ==
LOC: ED 07:48 → SUATTDRO 18:14 → EDHOLD 18:14 → ICU 23:35 → MED 01-03 19:01
PROVIDERS: ADMIT Internal Medicine; ATTEND Internal Medicine